=== PATIENT | female | born 1965 | race Caucasian/White ===

== ENCOUNTER 2016-12-13 17:30 | Emergency (ER) | payer OTHER ==
[~2016-12-13] VITALS: Ht 167.6 cm; Wt 77.3 kg
[~2016-12-13 17:30] MED LIST: CYCL10TA9 PO; GABA-502 PO; HYDR25TA4 PO; LISI40TA PO; OMEP40CA36 PO; OXYC10TA8 PO
[2016-12-13 17:40] VITALS: BP 146/90; PULSE 80; RESP 16; O2SAT 98
[2016-12-13 18:15] LABS: BASOPHILS % (AUTO) 0.5 % (0-3); EOSINOPHILS % (AUTO) 1.7 % (0-5); MONOCYTES % (AUTO) 9.5 % (4-12); Mean Corpuscular Hemoglobin 36.3 pg (27.0-35.0); Mean Corpuscular Volume 108.3 fL (81-100); NEUTROPHILS % (AUTO) 57.5 % (40-74); Platelet Count 551 bil/L (150-400)
--- NOTE | 2016-12-13 18:36 | DRSVH ---
PROCEDURE: X-RAY CHEST ONE VIEW, PORTABLE ([id number]) INDICATIONS: SHORT OF BREATH TECHNIQUE: One view of the chest was acquired. COMPARISON: [facility], CR, XR CHEST 1VW (PORTABLE), 03/18/2015, 19:54. FINDINGS: Surgical changes and devices: None. Lungs and pleura: No pleural effusions or pneumothorax. Lungs are clear. Mediastinum: Mediastinal contours appear normal. Heart size is normal. Bones and chest wall: No suspicious bony lesions. Overlying soft tissues appear unremarkable. IMPRESSION: Normal chest radiograph. Dictated by: Bubba Muñoz M.D. on 12/13/2016 at 18:28 Approved by: Bubba Muñoz M.D. on 12/13/2016 at 18:29
[2016-12-13 18:38] VITALS: BP 117/59; PULSE 82; RESP 13; O2SAT 96
[2016-12-13 18:58] LABS: TROPONIN T < 0.010 ug/L (0.0-0.011)
[2016-12-13 19:05] LABS: Magnesium 1.8 mg/dL (1.6-2.6)
--- NOTE | 2016-12-13 19:23 | ED.REPORT ---
HPI-Dyspnea / Wheezing Date of Service December 13, 2016 ED Provider: Modesto Brown DO Patient is a 51 year old female with recent history of recent hospitalization for hepatic thrombus and PE who presents to [facility] ED c/o difficulty breathing and increased RUQ abdominal pain with radiation to her right upper back. Patient is currently on Lovenox and Warfarin, 15 mg with subtherapeutic INR of 1.9 as of yesterday. Patient states she has been doing well with exception of RUQ pain which she has all the time since last week, but starting last night she noticed some shortness of breath that she never had before and radiation of her abdominal pain toward right upper thorax. These symptoms were accompanied by nausea and vomiting. Patient was supposed to go for a follow up appointment at [facility] to check her INR level, but she was told to go directly to ED for evaluation due to worsening symptoms. Nursing Notes Stated Complaint: TROUBLE BREATHING, BLOOD CLOT IN LUNG & LIVER Chief Complaint: Chest Pain Nursing Notes Reviewed: Yes Allergies: Coded Allergies: No Known Allergies (Unverified Allergy, Unknown, 05/14/14) Scheduled Cyclobenzaprine (Cyclobenzaprine) 10 Mg Tablet 10 MG PO HS Gabapentin (Gabapentin) 300 Mg Capsule 900 NG PO TID Hydrochlorothiazide (Hydrochlorothiazide) 25 Mg Tablet 25 MG PO DAILY Lisinopril (Lisinopril) 40 Mg Tablet 40 MG PO DAILY Oxycodone ER (Oxycontin) 10 Mg Tab.er.12h 10 MG PO BID oxyCODONE (oxyCODONE) 10 Mg Tablet 10 MG PO Q4 HR Scheduled PRN Omeprazole (Omeprazole) 40 Mg Capsule.dr 40 MG PO DAILY PRN PRN REFLUX General Time Seen by MD: 18:22 Chief Complaint Shortness of breath Hx Obtained From: Patient Arrived By: Walk-in Sudden in Onset?: Yes Onset Occurred: 1 day ago Context of Onset: Other (recent PE and hepatic thrombus) Location: : Back (right): Chest right Quality: Fullness Radiation: : Back: Chest right Severity: Current: Moderate Severity: Maximum: Moderate Recent Healthcare: Recent hospitalization (1 week ago) Risk Factors CAD Risk Stratification Hypertension Smoking Risk factors reviewed PE Risk Stratification Coagulation Disorder Previous PE Risk factors reviewed PERC Rule Age 50 or over, Prior Hx of DVT/PE One or more crit "Yes" Well's Criteria for PE Most likely due to PE (3), Prior DVT or PE (1.5) [facility] PE Score: 3-6 pts (mod risk 20.5%) Past Medical History Past Medical History PE Hepatic thrombus Splenic mass-see surgery history Hernitated disc Past Surgical History 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" Reports: , Hysterectomy Family History Mother at age 21 due to MN caused by Domitila Fever Smoking History Current Every Day Smoker, Light Tobacco Smoker Social History Alcohol Use: "Social" Drug Use: Denies drug use Other Social History: Local resident Ambulatory Status Independent Review of Systems Constitutional: Denies: Chills, Fatigue, Fever, Lethargy, Malaise, Recent wt loss, Weakness - generalized Ears / Nose / Throat: Reports: Nose bleeding Respiratory: Reports: Shortness of breath, Denies: Wheezing Cardiovascular: Denies: Chest pain, Dyspnea on exertion, Edema, Palpitations, Syncope Musculoskeletal: Reports: Thoracic pain (right), Denies: Joint pain, Joint swelling Skin: Reports Bruising, Denies Diaphoresis Physical Exam Initial Vital Signs Vital Signs (First) Date Time Temp Pulse Resp B/P Pulse Ox O2 Delivery O2 Flow Rate FiO2 12/13/16 17:40 37.4 80 16 146/90 98 Room Air Initial VS: Reviewed, Vital signs abnormal (T 37.4) General/Constitutional: Awake, Alert, No acute distress, Well appearing, Well developed, Well hydrated, Well nourished, Cooperative Neck: Atraumatic, Supple, No adenopathy, No swelling, Non-tender, No JVD, No carotid bruit Respiratory / Chest: Breath sounds NL, Breath sounds = bilat, No respiratory distress, No rales, No rhonchi, No wheezing Cardiovascular: Heart rate NL, Regular rhythm, No murmurs, Pulses = bilaterally ENT: Atraumatic, Mucous membranes moist Abdomen: Atraumatic, BS normoactive Tenderness/Guarding/Rebound: Positive: Tender RUQ... (Moderate), Tender epigastric Trauma - General: Positive: Ecchymosis (central abdomen (at the site of Lovenox injections)) Back: Atraumatic Flank / Spine / Paraspinal: Positive: Flank tender R Lower Extremity / Pelvis / MS: Atraumatic, No swelling, Non-tender, No erythema Skin: No rash, Warm, Dry Neurologic: Oriented X3, Speech NL Psychiatric: Affect NL, Mood NL Interpretation & Diagnostics Lab Results Interpretation Result Diagram: 12/13/16 1800 12/13/16 1800 Test 12/13/16 18:00 White Blood Count 11.9th/mm3 (3.8-10.1) Red Blood Count 3.61mil/mm3 (3.90-5.20) Hemoglobin 13.1g/dL (12.0-15.6) Hematocrit 39.1% (35.0-46.0) Mean Corpuscular Volume 108.3fL (81-100) Mean Corpuscular Hemoglobin 36.3pg (27.0-35.0) Mean Corpuscular Hemoglobin Concent 33.5% (32.0-37.0) Red Cell Distribution Width 13.7% (12.3-15.4) Platelet Count 551bil/L (150-400) Neutrophils (%) (Auto) 57.5% (40-74) Lymphocytes (%) (Auto) 30.5% (14-46) Monocytes (%) (Auto) 9.5% (4-12) Eosinophils (%) (Auto) 1.7% (0-5) Basophils (%) (Auto) 0.5% (0-3) Prothrombin Time 22.2sec (8.1-12.5) Prothromb Time International Ratio 2.04ratio Sodium Level 136mEq/L (134-144) Potassium Level 3.6mEq/L (3.5-5.2) Chloride Level 98mEq/L (97-108) Carbon Dioxide Level 22mmol/L (18-29) Blood Urea Nitrogen 16mg/dL (6-24) Creatinine 0.75mg/dL (0.57-1.00) Estimat Glomerular Filtration Rate 117mL/min (>59) Glucose Level 121mg/dL (60-99) Calcium Level 10.1mg/dL (8.5-10.1) Magnesium Level 1.8mg/dL (1.6-2.6) Total Bilirubin 0.2mg/dL (0.0-1.2) Aspartate Amino Transf (AST/SGOT) 28U/L (0-50) Alanine Aminotransferase (ALT/SGPT) 28U/L (0-32) Alkaline Phosphatase 96U/L (25-150) Troponin T < 0.010ug/L (0.0-0.011) Total Protein 7.8g/dL (6.4-8.4) Albumin 4.4g/dL (3.4-5.0) Hold Tim Top Tube Received (Received) ECG Interpretation Time: 17:58 Interpreted by: ED physician Normal ECG Interpretation: Normal rate (78), Normal sinus rhythm ( ) Rhythm / Conduction: Ectopic beats - PVC's, QTc prolongation (510) CBC Interpretation WBC elevated (11.9), Platelets elevated (551) BMP / CMP Interpretation BMP/CMP normal Serum Coags Interpretation INR normal (2 (Goal 2-3, patient is on Warfarin)) X-Ray Chest Interpretation Chest Xray Interpretation: Normal chest radiograph Interpretation / Wet Read by: Interpret - Radiologist CT Chest Interpretation CT angio chest PE: filling defect in the posterior medial segment of right lower lobe Interpretation / Wet Read by: Interpret - ED physician Comparison with Prior Study: No change (Requested CT angio chest report from [facility]. It said nonocclusive segmental right lower lobe pulmonary emboli ) Re-Eval/Medical Decision Med Decision/Clinical Course In summary, this is a 51 year old female with recent history of hepatic thrombus and PE, on Warfarin, 15 mg daily, with current INR of 2, presents to ER c/o shortness of breath and increasing RUQ pain with radiation to the back. Recent work up at [facility] revealed positive antiphospholipid antibody, that was discussed with the patient. Repeat CT angio chest in ED revealed filling defect in the right posterior medial segment of the right lobe, which is consistent with the finding on CT done on 12/10/2016 at [facility]. We discussed the patient with Dr. Farooq Madden, [facility] public transportation inspector physician, who agreed with the plan to discharge patient home on warfarin, current dose, at 15 mg daily with close follow up with [facility] clinic for INR check within 48 hours. Patient received an additional dose of Lovenox, 80 mg subcutaneously before discharge. Diagnoses, lab/test results and discharge follow up plan discussed with patient in details. She verbalized understanding and agreed to the plan. Laboratory work up significant for mild leukocytosis. Chest x-ray, ECG negative, CT angio chest PE ordered and pending. Source of Hx: Old records Severity: Serious condition Comorbidities: Anticoagulation therapy Counseled Regarding: Diagnosis, Lab results, Need for follow-up, When/why to return to ED Discharge & Departure Shift Change Sign-Out Response to Therapy: Improved Impression: Primary Impression: Pulmonary emboli Pulmonary embolism type: other Chronicity: unspecified Acute cor pulmonale presence: without acute cor pulmonale Qualified Code: I26.99 - Other pulmonary embolism without acute cor pulmonale Additional Impression: Hepatic vein thrombosis Disposition: Home Discharge Condition All VS Reviewed: Yes Condition: Stable Additional Instructions: Thank you for seeking care at emergency room today. You have pulmonary embolism, which is the sudden blockage of a major blood vessel in the lung, usually by a blood clot. In most cases, the clots a re small and are not deadly, but they can damage the lung. But if the clot is large and stops flow to the lung, it can be deadly. Please continue taking Warfarin, 15 mg daily and follow up with [facility] and your PCP within 48 hours. Your INR needs to be rechecked within 48 hours! This is very important. You will be sent home with a prescription for pain medication. Take it as prescribed. STOP smoking! Please return to emergency room if you develop new symptoms or your symptoms worsen: Sudden shortness of breath. Sharp chest pain that is worse when you cough or take a deep breath. A cough that brings up pink, foamy mucus. Other, more general symptoms. For example, you may feel anxious or on edge, sweat a lot, feel lightheaded or faint, or have a fast heart rate or palpitations. If you have symptoms like these, you need to see a doctor right away, especially if they are sudden and severe. Thank you for letting us partake in your care today. Referrals: Josemanuel Charles MD (PCP) EDSupervising Provider for APC: Modesto Brown DO Attending Statement I took a history performed an exam. No new pulmonary emboli identified. INR is therapeutic. She will get another dose of Lovenox and continue the current dose of warfarin. Her primary care was consulted and they will see her in the office this week. Pain was adequately treated. I suspect the pain is related to the pulmonary emboli. copies to: Josemanuel Charles MD, Oksana S DO December 13, 2016 19:23 Modesto Brown DO December 14, 2016 18:22
[2016-12-13 19:24] LABS: INR 2.04 ratio
[2016-12-13] MEDS ORDERED: HYDROmorphone 1 mg/mL Inj IVPUSH ONE ×2 (19:25→20:10)
[2016-12-13] MEDS ORDERED: HYDROmorphone 1 mg/mL Inj IM ONE (20:00)
--- NOTE | 2016-12-13 20:12 | DRSVH ---
PROCEDURE: CT ANGIO CHEST PULMONARY EMBOLISM ([id number]) INDICATIONS: recent PE, on Lovenox, now more pain, ?failure TECHNIQUE: After the administration of intravenous contrast, 2 mm thick sections acquired from the pulmonary api judie to the posterior costophrenic angles. 3-dimensional maximum intensity projection (MIP) coronal a nd sagittal reformats were then acquired through the thorax. For radiation dose reduction, the follo wing was used: automated exposure control, adjustment of mA and/or kV according to patient size. COMPARISON: [facility], CT, CT ABD PELVIS W CON, 03/18/2015, 20:54. FINDINGS: Image quality: Excellent. Pulmonary arteries: The central, left and right, and first rib or pulmonary artery branches are paten t. There is a possible peripheral filling defect in a subsegmental right lower lobe pulmonary artery (se 4 im 84). Lungs and pleura: There is a 9 x12 mm nodule in the inferior posterior right lower lobe (se 5 im 50) which was not present on the December 2014 examination and measured 8 mm on the March 18, 2015 abdomen a nd pelvis CT. There is an ill-defined pulmonary opacity adjacent to the pleura in the anterolateral r ight upper lobe (se 5 im 15). Otherwise, lungs are clear. Mediastinum: Heart size is normal, without pericardial effusion. No mediastinal or hilar adenopathy . Thoracic aorta is normal in caliber and enhancement. Esophagus is normal in caliber, without hiat al hernia. Bones and chest wall: No suspicious bony lesions. Ribs and thoracic spine appear intact throughout. Thyroid gland is present. No axillary or supraclavicular adenopathy. Abdomen: Visualized upper abdominal solid organs appear normal in the early arterial phase of enhanc ement. IMPRESSION: 1. Tiny possible filling defect in a subsegmental right lower lobe pulmonary artery. Possible etiolog ies include artifact or a subacute/chronic tiny pulmonary embolus. Please correlate with any CTs demo nstrating the location of the patient's reported previous emboli. Given the tiny size of this potenti al finding it is highly unlikely to be the source of the patient's symptoms. 2. Nodule in the inferior right lower lobe abutting the pleura is most consistent with rounded atelec tasis. It has increased in size since the February [address] from 8mm at that time to 12 mm today[address] PET CT for further evaluation. 3. Peripheral right upper lobe pulmonary opacity may represent early infection. Dictated by: Bubba Muñoz M.D. on 12/13/2016 at 19:51 Approved by: Bubba Muñoz M.D. on 12/13/2016 at 20:05
[2016-12-13 21:26] VITALS: BP 122/61; PULSE 74; RESP 16; O2SAT 94
[2016-12-13] MEDS ORDERED: OXYC10TA69 PO (21:41)
== END 2016-12-13 22:33 | disposition home or self-care (01) ==
LOC: SED 17:30
DX: I26.99 Other pulmonary embolism without acute cor pulmonale (principal); I82.0 Budd-Chiari syndrome; R10.11 Right upper quadrant pain; F17.200 Nicotine dependence, unspecified, uncomplicated; Z79.01 Long term (current) use of anticoagulants
CPT/HCPCS: 36415; 71010; 71275; 80053; 83735; 84484; 85025; 85610; 93005; 96372; 96374; 96376; 99285; J1170; J1650; Q9967

== ENCOUNTER 2017-03-06 15:32 | Inpatient (IN) | payer OTHER ==
[~2017-03-06] VITALS: Ht 167.6 cm; Wt 88.0 kg
[2017-03-06] VITALS (13 sets, daily range): BP systolic 116–201; BP diastolic 78–115; PULSE 74–87; RESP 17–28; O2SAT 87–100
--- NOTE | 2017-03-06 15:26 | ED.REPORT ---
HPI-Cardiac Arrest Date of Service Mar 06, 2017 ED Provider: Dr. Lewis Pt is a 51 y/o female anticoagulated on Warfarin w/ a hx of PE, HTN, symptomatic splenic mass s/p splenectomy, hepatic thrombus, presenting to the ED via EMS due to cardiac arrest which occurred about 40 minutes prior to arrival. The patient was totally well yesterday and today. She went to the bathroom, had a BM, stood up from the toilet and collapsed into the bathtub at which time he heard a thump and immediately went into the bathroom to find her lying facedown in the tub "appearing ". He is a classified ad clerk and immediately began CPR and called EMS. First responders arrived, transferred the patient to the kitchen, and continued CPR and applied an AED which advised to shock after 2 minutes. They then resumed CPR for 4 minutes. EMS then arrived to find the patient with a strong pulse and CPR was ceased. Her respirations were agonal, O2 saturation was 60%, and her BP was 180/100. Rapid sequence intubation was performed at 15:00 with succinylcholine and etomidate. Of note her airway was difficult to intubate due to vomit and adipose tissue. On route to the ED she had some purposeful movement of her chest and was given versed and rocuronium for sedation. She arrives to the ED critically ill. Additional history from the after he arrived: The patient has been hesitant to discuss with her her opiate drug use. She has been taking opiate pain medications for a long time due to a prior back surgery. He was told by one of her friends that she has been going to a Suboxone Clinic in [place] and just started on a patch. She has apparently never used IV drugs. She drinks alcohol and smokes everyday. There is no history of DM, cancer, or stroke. Further history unable to be obtained secondary to patient condition. Nursing Notes Stated Complaint: CARDIAC ARREST Nursing Notes Reviewed: Yes Allergies: Coded Allergies: No Known Allergies (Verified Allergy, Unknown, 03/06/17) Scheduled Aspirin (Aspirin) 81 Mg Tablet 162 MG PO DAILY Buprenorphine (Buprenorphine) 5 Mcg/Hour Patch.tdwk 1 PATCH TOPICAL WEEKLY Lisinopril (Lisinopril) 20 Mg Tablet 20 MG PO DAILY Simvastatin (Simvastatin) 20 Mg Tablet 20 MG PO DAILY Warfarin Sodium (Warfarin Sodium) 6 Mg Tablet 6 MG PO every other day Warfarin Sodium (Warfarin Sodium) 7.5 Mg Tablet 7.5 MG PO every other day Scheduled PRN Cephalexin (Cephalexin) 500 Mg Capsule 500 MG PO tid x 7 days PRN PRN illness Tramadol (Tramadol) 50 Mg Tablet 50-100 MG PO q8 hours PRN PRN For Pain oxyCODONE (oxyCODONE) 5 Mg Capsule 5-10 MG PO BID PRN PRN For Pain Miscellaneous Medications ([unknown "chemo drug"]) Unknown Dose General Time Seen by Provider: 15:30 Chief Complaint Cardiac arrest, found dwn Hx Obtained From: EMS Unable to Obtain Hx: Patient condition Arrived By: Ambulance Onset Occurred: 31 - 45 minutes ago Symptom Duration: Since onset Progression Since Onset: Constant Past Medical History Past Medical History PE - on Warfarin Hepatic thrombus Hypertension 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 - just started on Suboxone Past Surgical History 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" Back Reports: , Hysterectomy Family History Mother at age 21 due to [place] caused by Domitila Fever Smoking History Current Every Day Smoker Social History Just started Suboxone Alcohol Use: 1-3 per day Drug Use: Denies drug use Other Social History: Local resident Ambulatory Status Independent Review of Systems Unable to Obtain ROS Patient condition, Intubated Physical Exam Initial Vital Signs Vital Signs (First) Date Time Temp Pulse Resp B/P Pulse Ox O2 Delivery O2 Flow Rate FiO2 03/06/17 15:45 82 17 201/115 89 Mechanical Ventilator 03/06/17 16:01 33.8 Initial VS: Reviewed, Vital signs abnormal GENERAL: Comatose Critically ill-appearing Obese Respiratory / Chest: No stridor Intubated Breath sounds initially diminished on left, equal after tube moved into proper position Cardiovascular: Heart rate NL, Regular rhythm, Heart sounds NL, No murmurs, Peripheral circulation NL, Pulses = bilaterally Abdomen: Atraumatic, Soft Head / Eyes: Atraumatic, Normocephalic, PERRL (3mm bilat) ENT: Atraumatic, Airway patent, Mucous membranes moist Neck: Atraumatic, Supple Upper Extremity / MS: Atraumatic, Inspection NL Lower Extremity / Pelvis / MS: Atraumatic, Inspection NL Skin: Atraumatic, No rash NEURO: Comatose, GCS of 3 PSYCH: Unable to assess Interpretation & Diagnostics Lab Results Interpretation Result Diagram: 03/06/17 1556 03/06/17 1556 Test 03/06/17 15:56 03/06/17 16:13 White Blood Count 27.1th/mm3 (3.8-10.1) Red Blood Count 4.35mil/mm3 (3.90-5.20) Hemoglobin 16.0g/dL (12.0-15.6) Hematocrit 44.4% (35.0-46.0) Mean Corpuscular Volume 102.1fL (81-100) Mean Corpuscular Hemoglobin 36.8pg (27.0-35.0) Mean Corpuscular Hemoglobin Concent 36.0% (32.0-37.0) Red Cell Distribution Width 14.3% (12.3-15.4) Platelet Count 444bil/L (150-400) Neutrophils (%) (Auto) 72.3% (40-74) Lymphocytes (%) (Auto) 20.5% (14-46) Monocytes (%) (Auto) 4.9% (4-12) Eosinophils (%) (Auto) 0.5% (0-5) Basophils (%) (Auto) 0.3% (0-3) Prothrombin Time 25.1sec (8.1-12.5) Prothromb Time International Ratio 2.31ratio Sodium Level 138mEq/L (134-144) Potassium Level 4.1mEq/L (3.5-5.2) Chloride Level 101mEq/L (97-108) Carbon Dioxide Level 15mmol/L (18-29) Blood Urea Nitrogen 13mg/dL (6-24) Creatinine 0.67mg/dL (0.57-1.00) Estimat Glomerular Filtration Rate 133mL/min (>59) Glucose Level 200mg/dL (60-99) Calcium Level 9.0mg/dL (8.5-10.1) Magnesium Level 1.8mg/dL (1.6-2.6) Total Bilirubin 0.4mg/dL (0.0-1.2) Aspartate Amino Transf (AST/SGOT) 524U/L (0-50) Alanine Aminotransferase (ALT/SGPT) 285U/L (0-32) Alkaline Phosphatase 126U/L (25-150) Total Creatine Kinase 229U/L (21-215) Creatine Kinase MB 5.0ng/mL (0.0-5.3) Creatine Kinase MB % % (0.0-5.0) Troponin T 0.068ug/L (0.0-0.011) Total Protein 7.7g/dL (6.4-8.4) Albumin 4.9g/dL (3.4-5.0) Hold Urine Received (Received) ECG Interpretation ECG Interpretation: Sinus rhythm rate [address] depression Prolonged QT interval - QTc 596 Time: 15:45 Interpreted by: ED physician X-Ray Chest Interpretation Chest Xray Interpretation: IMPRESSION: Tip of endotracheal tube is 1 cm above the benja, and should be pulled back 3-4 cm. Dictated by: Giovany Modi M.D. on 03/06/2017 at 15:49 Approved by: Giovany Modi M.D. on 03/06/2017 at 15:50 View: Portable, 1 view Interpretation / Wet Read by: Interpret - Radiologist CT Chest Interpretation IMPRESSION: 1. No acute pulmonary embolus. 2. Dependent air space opacities throughout the lungs suspicious for aspiration in the setting of recent cardiac arrest. 3. Bilateral, displaced anterior rib fractures presumably secondary to recent CPR. Dictated by: Sheela Garcia M.D. on 03/06/2017 at 16:31 Approved by: Sheela Garcia M.D. on 03/06/2017 at 16:37 Study type: CT pulm angiogram Interpretation / Wet Read by: Interpret - Radiologist CT Abd / Pelvis Interpretation IMPRESSION: 1. Pulmonary opacities, partially visualized, possibly related to air space disease such as pneumonia or aspiration. 2. Air in the bladder, possibly related to antoine insertion. Other etiologies including infection cannot be excluded. 3. Bilateral rib fractures. Dictated by: Leticia Maza M.D. on 03/06/2017 at 15:59 Approved by: Leticia Maza M.D. on 03/06/2017 at 16:12 Study type: Abdominal CT IV contrast Interpretation / Wet Read by: Interpret - Radiologist CT C-Spine Interpretation IMPRESSION: 1. No visualized fracture. 2. Pulmonary opacities bilaterally. Please see CT Chest 03/06/17 report for further details. Dictated by: Leticia Maza M.D. on 03/06/2017 at 15:39 Approved by: Leticia Maza M.D. on 03/06/2017 at 15:55 Study type: CT no contrast Interpretation / Wet Read by: Interpret - Radiologist Procedures Lab Results Interpretation Result Diagram: 03/06/17 1556 03/06/17 1556 Test 03/06/17 15:56 03/06/17 16:13 White Blood Count 27.1th/mm3 (3.8-10.1) Red Blood Count 4.35mil/mm3 (3.90-5.20) Hemoglobin 16.0g/dL (12.0-15.6) Hematocrit 44.4% (35.0-46.0) Mean Corpuscular Volume 102.1fL (81-100) Mean Corpuscular Hemoglobin 36.8pg (27.0-35.0) Mean Corpuscular Hemoglobin Concent 36.0% (32.0-37.0) Red Cell Distribution Width 14.3% (12.3-15.4) Platelet Count 444bil/L (150-400) Neutrophils (%) (Auto) 72.3% (40-74) Lymphocytes (%) (Auto) 20.5% (14-46) Monocytes (%) (Auto) 4.9% (4-12) Eosinophils (%) (Auto) 0.5% (0-5) Basophils (%) (Auto) 0.3% (0-3) Prothrombin Time 25.1sec (8.1-12.5) Prothromb Time International Ratio 2.31ratio Sodium Level 138mEq/L (134-144) Potassium Level 4.1mEq/L (3.5-5.2) Chloride Level 101mEq/L (97-108) Carbon Dioxide Level 15mmol/L (18-29) Blood Urea Nitrogen 13mg/dL (6-24) Creatinine 0.67mg/dL (0.57-1.00) Estimat Glomerular Filtration Rate 133mL/min (>59) Glucose Level 200mg/dL (60-99) Calcium Level 9.0mg/dL (8.5-10.1) Magnesium Level 1.8mg/dL (1.6-2.6) Total Bilirubin 0.4mg/dL (0.0-1.2) Aspartate Amino Transf (AST/SGOT) 524U/L (0-50) Alanine Aminotransferase (ALT/SGPT) 285U/L (0-32) Alkaline Phosphatase 126U/L (25-150) Total Creatine Kinase 229U/L (21-215) Creatine Kinase MB 5.0ng/mL (0.0-5.3) Creatine Kinase MB % % (0.0-5.0) Troponin T 0.068ug/L (0.0-0.011) Total Protein 7.7g/dL (6.4-8.4) Albumin 4.9g/dL (3.4-5.0) Hold Urine Received (Received) X-Ray Chest Interpretation Chest Xray Interpretation: IMPRESSION: Tip of endotracheal tube is 1 cm above the benja, and should be pulled back 3-4 cm. Dictated by: Giovany Modi M.D. on 03/06/2017 at 15:49 Approved by: Giovany Modi M.D. on 03/06/2017 at 15:50 View: Portable, 1 view Interpretation / Wet Read by: Interpret - Radiologist CT Head Interpretation IMPRESSION: No acute intracranial abnormality is not identified on this CT without contrast. Dictated by: Ric Bobby M.D. on 03/06/2017 at 16:27 Approved by: Ric Bobby M.D. on 03/06/2017 at 16:29 Study: Head CT no contrast Interpretation / Wet Read by: Interpret - Radiologist Re-Eval/Medical Decision Source of Hx: Old records, EMS Re-Evaluation/Progress #1: Time of Eval: 15:54 Re-Evaluation/Progress Note: Pt rechecked. Propofol started. Re-Evaluation/Progress #2: Time of Eval: 15:56 Re-Evaluation/Progress Note: Pt rechecked. Off to CT scan. Re-Evaluation/Progress #3: Time of Eval: 15:59 Re-Evaluation/Progress Note: arrived. Discussed case. Informed of need for admission to ICU. He agrees with plan for admit and full treatment. Re-Evaluation/Progress #4: Time of Eval: 16:26 Re-Evaluation/Progress Note: Pt rechecked. Back from CT. Re-Evaluation/Progress #5: Time of Eval: 16:40 Re-Evaluation/Progress Note: Pt rechecked. Hospitalist has arrived and will place central and arterial line. Consultation #1: Referral / Consult Name: Eagle Perez MD Consulted With: Hospitalist Call Returned at: 16:32 Area Field Manager: Will see patient, Agrees with eval, Agrees with plan, Accepts admit Consultation #2: Referral / Consult Name: Anastasiia Xiong MD Consulted With: Cardiology Call Returned at: 17:24 Area Field Manager: Will see patient, Agrees with eval, Agrees with plan Note: Will consult during admit. Counseled Regarding: Diagnosis, Lab results, Need for admission Discharge & Departure Impression: Primary Impression: Cardiac arrest Additional Impressions: Respiratory failure Chronicity: acute Respiratory failure complication: unspecified whether with hypoxia or hypercapnia Qualified Code: J96.00 - Acute respiratory failure , unspecified whether with hypoxia or hypercapnia Aspiration pneumonia Aspiration pneumonia type: unspecified Laterality: bilateral Lung location : unspecified part of lung Qualified Code: J69.0 - Pneumonitis due to inhalation of food and vomit Elevated troponin Transaminitis Leukocytosis Leukocytosis type: unspecified Qualified Code: D72.829 - Elevated white blood cell count, unspecified Rib fractures Encounter type: initial encounter Rib fracture type: multiple ribs Fracture type: closed Laterality: bilateral Qualified Code: S22.43XA - Multiple fractures of ribs, bilateral, initial encounter for closed fracture QT prolongation Disposition: ADMITTED TO HOSPITAL All VS Reviewed: Yes Condition: Critical Referrals: Josemanuel Charles MD (PCP) Crit Care Except Billable Proc Time Spent: 30-74 minutes Services Performed: Patient management by me, Time spent at bedside, Reviewing test results, Reviewing imaging, Discussing patient care, Documentation in record, Time with fam/surrogate Critical Care Notes: 60 minutes Scribe Attestation Portions of this note were transcribed by Santino Hernandez. I, Dr. Lewis, personally performed the history, physical exam and medical decision-making; I reviewed and confirmed the accuracy of the information in the transcribed note. copies to: Josemanuel Charles MD, Kirk H MD Mar 06, 2017 15:26 SANTINO HERNANDEZ Mar 06, 2017 15:35
[~2017-03-06 15:32] MED LIST changes: +0.9% Sodium Chloride 1,000 ML IV ONE; +AMOX-366 PO; -CYCL10TA9 PO; +ESOM40CA41 PO; -GABA-502 PO; -HYDR25TA4 PO; +LISI-608 PO; -LISI40TA PO; +LOV120 SUBQ; -OMEP40CA36 PO; +ONDA4TAB6 PO; -OXYC10TA8 PO; +OXYC15TA79 PO; +OXYC1TAB24 PO; +OXYC5TAB72 PO; +SUCR1TAB30 PO
--- NOTE | 2017-03-06 15:52 | DRSVH ---
PROCEDURE: X-RAY CHEST ONE VIEW, PORTABLE ([id number]) INDICATIONS: 51 year-old female with cardiac arrest. TECHNIQUE: One view of the chest was acquired. COMPARISON: [facility], CR, XR CHEST 1VW (PORTABLE), 12/13/2016, 17:50. [facility], CR, XR CHEST 1VW (PORTABLE), 03/18/2015, 19:54. FINDINGS: Surgical changes and devices: Endotracheal tube is present, with tip 1 cm above the benja. Additiona l abdominal catheter is noted, presumably within the abdominal aorta. Lungs and pleura: No pleural effusions or pneumothorax. Lungs are clear. Mediastinum: Mediastinal contours appear normal. Heart size is normal. Bones and chest wall: No suspicious bony lesions. Overlying soft tissues appear unremarkable. IMPRESSION: Tip of endotracheal tube is 1 cm above the benja, and should be pulled back 3-4 cm. Dictated by: Giovany Modi M.D. on 03/06/2017 at 15:49 Approved by: Giovany Modi M.D. on 03/06/2017 at 15:50
[2017-03-06 16:06] LABS: BASOPHILS % (AUTO) 0.3 % (0-3); EOSINOPHILS % (AUTO) 0.5 % (0-5); MONOCYTES % (AUTO) 4.9 % (4-12); Mean Corpuscular Hemoglobin 36.8 pg (27.0-35.0); Mean Corpuscular Volume 102.1 fL (81-100); NEUTROPHILS % (AUTO) 72.3 % (40-74); Platelet Count 444 bil/L (150-400)
[2017-03-06 16:27] LABS: INR 2.31 ratio
--- NOTE | 2017-03-06 16:30 | DRSVH ---
PROCEDURE: CT BRAIN WITHOUT CONTRAST ([id number]) INDICATIONS: syncope TECHNIQUE: Noncontrast 4.5 mm thick angled axial sections acquired from the foramen magnum to the vertex, with c oronal reformats. COMPARISON: None. FINDINGS: Image quality: Good CSF spaces: Basal cisterns are patent. No extra-axial fluid collections. Ventricles are normal in size and shape. Brain: No midline shift. No intracranial masses or hemorrhage. Argueta-white matter interface is norm al. Skull and face: Calvarium and visualized facial bones are intact, without suspicious lesions. A cami al tracheal tube passes through the visualized portion of head. Sinuses: Visualized sinuses and mastoids are clear. IMPRESSION: No acute intracranial abnormality is not identified on this CT without contrast. Dictated by: Ric Bobby M.D. on 03/06/2017 at 16:27 Approved by: Ric Bobby M.D. on 03/06/2017 at 16:29
--- NOTE | 2017-03-06 16:38 | DRSVH ---
PROCEDURE: CT ANGIO CHEST PULMONARY EMBOLISM ([id number]) INDICATIONS: syncope TECHNIQUE: After the administration of intravenous contrast, 2 mm thick sections acquired from the pulmonary api judie to the posterior costophrenic angles. 3-dimensional maximum intensity projection (MIP) coronal a nd sagittal reformats were then acquired through the thorax. For radiation dose reduction, the follo wing was used: automated exposure control, adjustment of mA and/or kV according to patient size. COMPARISON: [facility], CT, CT ANGIO CHEST PE, 12/13/2016, 19:39. FINDINGS: Image quality: Excellent. Pulmonary arteries: Pulmonary arteries are normal in size, and demonstrate no intraluminal filling d efects to suggest central pulmonary embolism. Lungs and pleura: Dependent air space opacities are present within the bilateral upper and lower lobe s suspicious for aspiration in the setting of recent cardiac arrest. No pleural effusion or pneumotho rax. Mediastinum: Heart size is normal, without pericardial effusion. No mediastinal or hilar adenopathy . Thoracic aorta is normal in caliber and enhancement. Esophagus is normal in caliber, without hiat al hernia. The patient is intubated. An NG tube is present, the tip of which is not visualized. Bones and chest wall: No suspicious bony lesions. Thoracic spine is intact. There are minimally disp laced anterior right fourth, fifth, sixth and seventh rib fractures, and a displaced anterior left si xth rib fracture. Thyroid gland is unremarkable. No axillary or supraclavicular adenopathy. Abdomen: Visualized upper abdominal solid organs appear normal in the early arterial phase of enhanc ement. IMPRESSION: 1. No acute pulmonary embolus. 2. Dependent air space opacities throughout the lungs suspicious for aspiration in the setting of rec ent cardiac arrest. 3. Bilateral, displaced anterior rib fractures presumably secondary to recent CPR. Dictated by: Sheela Garcia M.D. on 03/06/2017 at 16:31 Approved by: Sheela Garcia M.D. on 03/06/2017 at 16:37
[2017-03-06] MEDS ORDERED: fentaNYL-PF 50 mCg/mL 2 mL Inj ONE ×2 (16:46→16:59)
--- NOTE | 2017-03-06 16:56 | DRSVH ---
PROCEDURE: CT CERVICAL SPINE WITHOUT CONTRAST ([id number]) INDICATIONS: trauma TECHNIQUE: Noncontrast 3 mm thick sections acquired from the skull base to the T4 level. Sagittal and coronal r eformats were then constructed. For radiation dose reduction, the following was used: automated exp osure control, adjustment of mA and/or kV according to patient size. COMPARISON: [facility], CT, CT ANGIO CHEST PE, 03/06/2017, 16:04. FINDINGS: Image quality: Excellent. Bones: No fractures or dislocations. Visualized superior ribs are intact. There is straightening o f normal cervical curvature. There is trace anteriolithesis of C4 on C5, trace retrolithesis of C5 o n C6, C6 on C7. Multi-level degenerative changes are present. Soft tissues: Prevertebral soft tissues are normal in thickness. No paravertebral hematomas. No ap ical pneumothoraces. Endotracheal and nasogastric tubes are noted. Patchy bilateral upper pulmonary lobe opacities, left greater than right, seen in partial view. IMPRESSION: 1. No visualized fracture. 2. Pulmonary opacities bilaterally. Please see CT Chest 03/06/17 report for further details. Dictated by: Leticia Maza M.D. on 03/06/2017 at 15:39 Approved by: Leticia Maza M.D. on 03/06/2017 at 15:55
[2017-03-06 16:57] LABS: Magnesium 1.8 mg/dL (1.6-2.6)
[2017-03-06 16:58] LABS: Creatine Kinase 229 U/L (21-215)
[2017-03-06 17:00] LABS: TROPONIN T 0.068 ug/L (0.0-0.011)
--- NOTE | 2017-03-06 17:13 | DRSVH ---
PROCEDURE: CT ABDOMEN AND PELVIS WITH CONTRAST ([id number]) INDICATIONS: coma, history of PE and hepatic "Clots", on warfar TECHNIQUE: After the administration of intravenous contrast, 5 mm thick sections acquired from the diaphragm to the symphysis. 5 mm coronal and sagittal reformats were acquired. For radiation dose reduction, the following was used: automated exposure control, adjustment of mA and/or kV according to patient jennifer sims. COMPARISON: [facility], CT, CT ABD PELVIS W CON, 03/18/2015, 20:54. FINDINGS: Image quality: Excellent. ABDOMEN: Lung bases: Partially visualized pulmonary opacities. Heart size is normal. Solid organs: Liver and spleen are normal in size and enhancement. Gallbladder is unremarkable. Bi liary system is non dilated. Pancreas enhances normally. No adrenal nodules. Kidneys demonstrate n ormal size and enhancement, without hydronephrosis. Peritoneum and bowel: Bowel loops demonstrate normal wall thickness and caliber. No free fluid or a ir. Nasogastric tube is noted in the stomach. Nodes and vessels: No retroperitoneal or mesenteric adenopathy by size criteria. Aorta and inferior vena cava are normal in size. Miscellaneous: No ventral hernias. PELVIS: Genitourinary: Antoine catheter is present. Air is present in the bladder, possibly secondary to cath eter insertion. Miscellaneous: No inguinal hernias or adenopathy. Bones: No suspicious bony lesions. No vertebral body compression fractures. Right 5th through 7th and left 6th and possibly 5th rib fracture. Posterior fuson from L4-S1 is noted. IMPRESSION: 1. Pulmonary opacities, partially visualized, possibly related to air space disease such as pneumoni a or aspiration. 2. Air in the bladder, possibly related to antoine insertion. Other etiologies including infection ca nnot be excluded. 3. Bilateral rib fractures. Dictated by: Leticia Maza M.D. on 03/06/2017 at 15:59 Approved by: Leticia Maza M.D. on 03/06/2017 at 16:12
[2017-03-06] MEDS ORDERED: LISI-567 PO (17:28)
[2017-03-06] MEDS ORDERED: ASPI-973 PO (17:28)
[2017-03-06] MEDS ORDERED: [UNRECOGNIZED DRUG - REMARK] (17:28)
[2017-03-06] MEDS ORDERED: WARF6TAB6 PO (17:28)
[2017-03-06] MEDS ORDERED: OXYC5CAP4 PO (17:28)
[2017-03-06] MEDS ORDERED: SIMV20TA4 PO (17:28)
[2017-03-06] MEDS ORDERED: WARF7.5T4 PO (17:28)
[2017-03-06] MEDS ORDERED: BUPR1PAT TOPICAL (17:28)
[2017-03-06] MEDS ORDERED: TRAM50TA2 PO (17:28)
[2017-03-06] MEDS ORDERED: CEPH500C PO (17:28)
[2017-03-06] MEDS: 0.9% Sodium Chloride 1,000 ML IV SCH ×3 (17:43→20:27)
[2017-03-06] MEDS ORDERED: Polyethylene Glycol (PEG) 17 Gm Powder PO PRN (17:45)
[2017-03-06] MEDS ORDERED: Senna-Docusate 8.6-50 mg Tablet PO PRN (17:45)
[2017-03-06] MEDS ORDERED: Alum-Mag Hydrox-Simeth 30 mL Suspension PO PRN (17:45)
--- NOTE | 2017-03-06 17:54 | DRSVH ---
PROCEDURE: X-RAY CHEST ONE VIEW, PORTABLE ([id number]) INDICATIONS: POST CENTRAL LINE PLACEMENT TECHNIQUE: One view of the chest was acquired. COMPARISON: None. FINDINGS: Surgical changes and devices: There is an NG tube into the stomach. There is an endotracheal tube 4.7 cm above the benja. There is a right internal jugular central line with the tip just above the righ t atrium in the region of the superior vena cava. playground monitor leads are seen over the chest. Lungs and pleura: No pleural effusions or pneumothorax. Lungs are clear. Mediastinum: Mediastinal contours appear normal. Heart size is normal. Bones and chest wall: No suspicious bony lesions. Overlying soft tissues appear unremarkable. IMPRESSION: Central line in good position from a radiographic point of view. No radiographic complica tion is seen. Other tubes and lines are appropriate. Lungs are clear. Dictated by: Ric Bobby M.D. on 03/06/2017 at 17:51 Approved by: Ric Bobby M.D. on 03/06/2017 at 17:52
[2017-03-06] MEDS: fentaNYL 2,500 mCg/250 mL IV Premix IV SCH ×2 (17:55→19:57)
[2017-03-06] MEDS: Cisatracurium 200,000 mCg/100 mL NS IV SCH ×2 (18:00)
[2017-03-06] MEDS ORDERED: Cisatracurium 2,000 mCg/mL 10 mL Inj IV ONE (18:00)
[2017-03-06] MEDS: Midazolam 100 mg/100 mL Premix IV PRN (18:02)
[2017-03-06] MEDS ORDERED: 0.9% Sodium Chloride (Chilled) 1,000 ML IV PRN (18:08)
[2017-03-06] MEDS ORDERED: Lactated Ringer's 1,000 ML IV PRN (18:08)
[2017-03-06] MEDS ORDERED: DOBUTamine 500 mg/250 D5W 500,000 MCG in IV Premix 1 EACH IV PRN (18:08)
[2017-03-06] MEDS ORDERED: 0.9% Sodium Chloride (Chilled) 2,000 ML IV ONE (18:08)
[2017-03-06] MEDS ORDERED: 0.9% Sodium Chloride (Chilled) 500 ML IV PRN (18:08)
[2017-03-06] MEDS ORDERED: Piperacillin-Tazo 3.375 Gm Inj 3.375 GM in Dextrose 5% Minibag Plus 50 ML IV ONE (18:10)
[2017-03-06] MEDS ORDERED: Cisatracurium 2,000 mCg/mL 10 mL Inj IV PRN (18:10)
[2017-03-06] MEDS ORDERED: Calcium GLUCOnate 10% (Gm) 1 Gm/10 mL Inj IV PRN (18:10)
[2017-03-06] MEDS ORDERED: Acetaminophen IV 1,000 MG in IV Premix 1 EACH IV PRN (18:10)
[2017-03-06] MEDS ORDERED: Magnesium Sulf 2 Gm/50mL Water 2 GM in IV Premix 1 EACH IV ONE (18:30)
[2017-03-06 18:33] LABS: APPEARANCE,URINE CLEAR (CLEAR,HAZY); COLOR,URINE STRAW (YELLOW); OCCULT BLOOD,URINE LARGE (NEGATIVE); PH,URINE 6.5 (5.0-8.0); UROBILINOGEN,URINE NORMAL (NORMAL)
--- NOTE | 2017-03-06 18:57 | NUR ---
PT. TRANSPORTED FROM ED TO ROOM 2019 ON PORTABLE VENT AND PLACED ON SERVO WITHOUT INCIDENT. REPORT GIVEN TO RT.
[2017-03-06] MEDS: Midazolam Inj 100 MG in IV Premix 1 EACH IV SCH ×2 (19:07→19:56)
--- NOTE | 2017-03-06 19:25 | ABG ---
DateTimeAnalyzed 19:17:00 -_ pH ____7.319 - 7.350 7.450 pCO2 ___37.3__ -mmHg 35.0 45.0 pO2 210 -mmHg 69.0 116 HCO3- ___18.7__ -mmol/L 22.0 26.0 ABE ___-6.4__ -mmol/L -2.0 2.0 tHb ___14.5__ -g/dL 12.0 18.0 O2Hb ___97.3__ -% COHb ____0.6__ -% 0.0 1.5 MetHb ____1.2__ -% 0.4 1.5 sO2 ___99.1__ -% FIO2 __100.0__ -% PEEP ____6.0__ -cmH2O Set_RR ___22.0__ -b/min Vt __480.0__ -L Drawn By TLA - Date/Time Notified____ 19:24:00 -_ Spontaneous_RR ___22.0__ -b/min Oxygen Device 1 VENTILATOR - Notified Whom RADHA-RN - B 755 -mmHg tO2 ___20.2__ -Vol% Eagle test N/A -
--- NOTE | 2017-03-06 19:35 | NUR ---
Admit: Patient arrived to CCU room 2019 @ 1820 from ED via gurney and was transferred to CCU bed with slider board. Patient intubated with vent settings: 100%/6PEEP/22RR/500TV. Fentanyl 50 mcg/hr, Versed 2mg/hr and Propofol 50mcg/kg/min gtt infusing. VSS. Tele: Sinus 70's. Art line was started by Dr Cheek in CCU. Cooling protocol was initiated by this RN along with Susy STEPHENS RN. Report given to Susy Johnson RN.
[2017-03-06] MEDS: Piperacillin-Tazo 3.375 Gm Inj 3.375 GM in Dextrose 5% Minibag Plus 50 ML IV ONE ×2 (19:50→20:09)
[2017-03-06 19:58] LABS: BASOPHILS % (AUTO) 0.1 % (0-3); EOSINOPHILS % (AUTO) 0.1 % (0-5); MONOCYTES % (AUTO) 4.4 % (4-12); Mean Corpuscular Hemoglobin 35.8 pg (27.0-35.0); NEUTROPHILS % (AUTO) 83.9 % (40-74); Platelet Count 347 bil/L (150-400)
[2017-03-06] MEDS: Magnesium Sulf 4 Gm/100 mL H2O 4 GM in IV Premix 1 EACH IV PRN (20:08)
--- NOTE | 2017-03-06 20:10 | PCM.HPMED ---
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 History is obtained from prior hospital and outpatient records, as well as her Fco. He states that today the patient coughed, and to the bathroom, had a bowel movement, and then collapsed in the bathroom. She heard the patient fall in the tub and went to offer assistance. There he found her down with a thready pulse, was able to turn her onto her back in the tub and began CPR. At that time he also called 911 and within 5 minutes the Propagation Worker was there to render assistance. They move the patient from the bathtub to the kitchen and continued with CPR and AED shocked the patient wants. Approximately 10 minutes later EMS arrived the patient was shocked again with return of spontaneous circulation. Patient was intubated in the field and report from ENT stated that there was a large amount of vomit in the oropharynx. The denies review of systems prior to this episode. He does state that the patient's been trying to get away from narcotics and started a Suboxone patch today. He does not know if she continued to use her opioids. 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 In January 2015 she had an encounter with [facility] surgical team due to a large splenic cyst that was removed. The patient was vaccinated appropriately. Patient also presented to [facility] in November of this year and underwent CT which which identified a filling defect in the right posterior medial segment of the right lobe, reportedly consistent with hepatic vein thrombosis, as well as a pulmonary embolism. Those records are not available at this time. She was placed on warfarin and Lovenox but presented to [facility] ED 3 days later with persistent right upper quadrant abdominal and chest pain. She was discharged at that time with an increase in her warfarin to 15 mg daily and was to follow- up with [facility] Initially the patient was bucking the vent and large amount of fentanyl and propofol were ineffective and stopping the patient from fighting the vent and attempting to remove the ET tube. Versed 6 mg push was used to sedate the patient In the emergency department EKG around 1700 showed prolonged QT interval but otherwise was normal sinus rhythm. Troponin was positive at 0.068, LFTs were elevated at nearly 2-1 fashion, and CK was elevated to 29. Patient also had a acidosis of 22 which is expected after rest. Patient also had leukocytosis without left shift. Otherwise labs were unremarkable.CT of the brain and cervical region was taken and negative for bleed. CTA of the chest was taken and negative for pulmonary embolism. CT of the abdomen and pelvis was unremarkable. Review of Systems: Review of systems were obtained from to the best of his knowledge and are presented in the history of present illness Allergies Coded Allergies: No Known Allergies (Verified Allergy, Unknown, 03/06/17) Home Medications Taken from PCP med list in [facility] Lisinopril/hydrochlorothiazide 20/25mg Nexium 40 mg capsules Oxycodone 5 mg tablets every 6 hours when necessary pain Percocet 5-325 mg tablet every 4 hours as needed Reported Suboxone Zofran PMH Hypertensive retinopathy Hypertension Hepatic vein thrombosis Pulmonary embolism Splenic cyst Surgical History Hysterectomy Splenectomy Family History Mother of [place] and medic fever at 21 Father is alive and has a AAA Social History Hx Alcohol Use: Yes Alcoholic Drinks Per Day: daily Hx Substance Use: No Smoking Status: Current Every Day Smoker (unknown factors) Exam Vital Signs Vital Sign - Last Date Time Temp Pulse Resp B/P Pulse Ox O2 Delivery O2 Flow Rate FiO2 03/06/17 19:40 81 131/90 100 60 03/06/17 18:30 36.7 22 Mechanical Ventilator Exam General: Initially agitated female, appears older than stated age; sedated now HEENT: Pupils were equally round and non-constricted/dilated; ET tube in place Lymph: No lymphadenopathy Cardio: Regular rate and rhythm no murmurs Respiratory: CTA bilaterally with crackles Abdomen: Soft, positive bowel sounds Extremities: No edema Psych: Sedated Neuro: Sedated Skin: No rash Lab and Diagnostics Result Diagram: 03/06/17 1556 03/06/17 1556 X-Rays, CTs and MRIs Chest x-ray IMPRESSION: Tip of endotracheal tube is 1 cm above the benja, and should be pulled back 3-4 cm. Dictated by: Giovany Modi M.D. on 03/06/2017 at 15:[address] IMPRESSION: No acute intracranial abnormality is not identified on this CT without contrast. Dictated by: Ric Bobby M.D. on 03/06/2017 at 16:27 CTA chest 1. No acute pulmonary embolus. 2. Dependent air space opacities throughout the lungs suspicious for aspiration in the setting of recent cardiac arrest. 3. Bilateral, displaced anterior rib fractures presumably secondary to recent CPR. Dictated by: Sheela Garcia M.D. on 03/06/2017 at 16:[address] 1. No visualized fracture. 2. Pulmonary opacities bilaterally. Please see CT Chest 03/06/17 report for further details. Dictated by: Leticia Maza M.D. on 03/06/2017 at 15:[address] 1. Pulmonary opacities, partially visualized, possibly related to air space disease such as pneumonia or aspiration. 2. Air in the bladder, possibly related to antoine insertion. Other etiologies including infection cannot be excluded. 3. Bilateral rib fractures. Dictated by: Leticia Maza M.D. on 03/06/2017 at 15:59 Chest x-ray IMPRESSION: Central line in good position from a radiographic point of view. No radiographic complication is seen. Other tubes and lines are appropriate. Lungs are clear. Dictated by: Ric Bobby M.D. on 03/06/2017 at 17:51 12-lead ECG EKG 15:46: Prolonged QT with a possible ectopic atrial rhythm; Dr. Xiong reviewed and stated no STEMI Assessment & Plan 51-year-old female history hypertension, multiple pulmonary embolism and hepatic vein thrombosis, and alcohol abuse on chronic opioids and now Suboxone as of today who presents emergency department following a cardiac arrest. Currently cause of arrest is unknown but is concerning for opiate overdose with Suboxone and Percocet/oxycodone. Neurological: Patient appeared to be making some at least reactionary movements emergency department, and appear to be quite strong pulling herself up by the restraints and attempted take out her ET tube. She did not follow commands including turning towards voice. Patient was given 300 of fentanyl and more than 100 of propofol and was still extremely active. She was finally sedated with Versed 6 mg push and continued on bursitis after admitted to the floor. Patient remaining on fentanyl inverse at overnight for sedation. Cardio: Cause for the patient's arrest is currently unknown although there is a chance of this is due to Suboxone and continued use of her oxycodone and alcohol. states she is not drinking today and her alcohol level is 0. EKG was not overly concerning except for prolonged QT and troponin so far can easily be explained by CPR and resuscitation efforts. In any case the patient is undergoing hypothermic protocol, and does remain on telemetry. Lactic acid and troponin are being tract overnight. Does not appear to be primary cause, thus, heparin not started tonight. Respiratory: Patient was initially bucking the vent and increasing tidal volume and respiratory rate were helpful for only a short time. The patient became very agitated she was fighting the vent and essentially had very little ventilation during that time. Reports from from EMT that the patient aspirated a large amount and excess was found and oropharynx at time of intubation. CT of the chest does demonstrate consolidations but no overwhelming edema noted. First ABG after admission shows a pH of 7.39 with a normal PCO2. Bicarbonate from the lab was 15 indicating an anion gap metabolic acidosis likely caused by an expected lactic acidosis. However lactate levels seem to be difficult to obtain as multiple have been ordered and as of the time of this note, none are available. Vent settings are currently undergoing adjustment and repeat ABG in 1 hour and again in the am. CXR in a.m. Abdomen: Prophylactic with famotidine; patient also has elevated liver enzymes almost AST/ALT 2/1. Alkaline phosphatase is normal. Could be due to shock liver. With patient's history of alcohol abuse and is more likely due to chronic alcohol abuse. We will also order lipase tonight Infectious: Entirely expected that this patient has or will have aspiration pneumonia or pneumonitis. Patient started on Zosyn and MRSA swab taken. If positive will start Vanco. Patient's leukocytosis is likely to be due to resuscitation and arrest.Blood cultures were ordered and taken just minutes before the zosyn was registered as given. Renal: Kidneys appear to be well perfuses creatinine 0.67. Fluids are being given tonight with protocol for hypothermia, and we will recheck this in the morning. CK is elevated but only to 229 below threshold for any sort of rhabdo. Lines: Patient has a central line that has been signed off by radiology as well as an arterial line with a good pulse wave. Disposition: Patient status remains guarded due to unknown events leading up to this arrest. She has been admitted to the ICU under inpatient status with the duration greater than 2 midnights. Full code Pain Evaluation: Adequate Pain Control GI Prophylaxis: H2 pierce VTE Prophylaxis Indicated: Contraindicated Resuscitation Status: CPR: Attempt Resuscitation Time spent 120 minutes critical care time Attending Statement The patient was seen and examined together with on March 06 and I agree with the history, exam findings, and plan as outlined in the note above. I did participate in all aspects of the services provided today, including documentation and the plan of care. This patient presented in a presumed V. fib arrest. The patient arrived in the emergency department intubated very agitated. She has a history of both opiates and probable alcohol dependence. She took a normal small amount of fentanyl was intermittent improvement of symptoms also required Versed and fentanyl drip as well as propofol. The patient's QT interval was prolonged for unclear reasons. The patient had normal magnesium. There is evidence of an acute aspiration event based on description of field intubation. She will be placed on the hypothermia protocol and supported with postop now and Versed drips as well as propofol. We will manage her lactic acidosis resuscitation. Onesimo Cheek DO Mar 06, 2017 20:10 Eagle Perez MD Mar 07, 2017 07:33
[2017-03-06 20:15] LABS: INR 2.51 ratio
[2017-03-06] MEDS: LacriLube S.O.P. 3.5 Gm Ophthalmic Ointment BOTH_EYES SCH (20:30)
[2017-03-06 20:35] LABS: Magnesium 1.3 mg/dL (1.6-2.6); Phosphorus 3.3 mg/dL (2.5-4.9)
[2017-03-06 20:44] LABS: TROPONIN T 0.936 ug/L (0.0-0.011)
[2017-03-06] MEDS: Chlorhexidine 0.12% 15 mL Oral Solution MT SCH (21:01)
--- NOTE | 2017-03-06 21:46 | ABG ---
DateTimeAnalyzed 21:40:00 -_ pH ____7.246 - 7.350 7.450 pCO2 ___34.6__ -mmHg 35.0 45.0 pO2 ___97.6__ -mmHg 69.0 116 HCO3- ___14.5__ -mmol/L 22.0 26.0 ABE __-11.6__ -mmol/L -2.0 2.0 tHb ___13.2__ -g/dL 12.0 18.0 O2Hb ___94.3__ -% COHb ____0.4__ -% 0.0 1.5 MetHb ____1.1__ -% 0.4 1.5 sO2 ___95.7__ -% FIO2 ___21.0__ -% PEEP ____6.0__ -cmH2O Set_RR ___22.0__ -b/min Vt __480.0__ -L Drawn By TLA - Date/Time Notified____ 21:46:00 -_ Spontaneous_RR ___22.0__ -b/min Oxygen Device 1 VENTILATOR - Notified By TLA - Notified Whom _Karen-RN - B 755 -mmHg tO2 ___17.6__ -Vol% Eagle test N/A -
[2017-03-07] VITALS (18 sets, daily range): BP systolic 90–130; BP diastolic 61–85; PULSE 43–59; RESP 20–24; O2SAT 99–100
[2017-03-07 00:06] LABS: BASOPHILS % (AUTO) 0.1 % (0-3); EOSINOPHILS % (AUTO) 0.1 % (0-5); MONOCYTES % (AUTO) 4.5 % (4-12); Mean Corpuscular Volume 103.5 fL (81-100); NEUTROPHILS % (AUTO) 85.3 % (40-74); Platelet Count 341 bil/L (150-400)
[2017-03-07] MEDS: Chlorhexidine 0.12% 15 mL Oral Solution MT SCH ×6 (00:16→19:28)
[2017-03-07] MEDS: Piperacillin-Tazo 3.375 Gm Inj 3.375 GM in Dextrose 5% Minibag Plus 50 ML IV SCH ×3 (00:17→15:51)
[2017-03-07 00:51] LABS: Magnesium 2.3 mg/dL (1.6-2.6); Phosphorus 2.7 mg/dL (2.5-4.9)
[2017-03-07 00:52] LABS: TROPONIN T 0.646 ug/L (0.0-0.011)
--- NOTE | 2017-03-07 01:11 | ABG ---
DateTimeAnalyzed 01:05:00 -_ pH ____7.270 - 7.350 7.450 pCO2 ___32.9__ -mmHg 35.0 45.0 pO2 108 -mmHg 69.0 116 HCO3- ___14.6__ -mmol/L 22.0 26.0 ABE __-10.9__ -mmol/L -2.0 2.0 tHb ___13.4__ -g/dL 12.0 18.0 O2Hb ___95.6__ -% COHb ____0.3__ -% 0.0 1.5 MetHb ____1.0__ -% 0.4 1.5 sO2 ___96.9__ -% FIO2 ___70.0__ -% PEEP ____6.0__ -cmH2O Set_RR ___22.0__ -b/min Vt __480.0__ -L Drawn By TLA - Date/Time Notified____ 01:11:00 -_ Spontaneous_RR ___22.0__ -b/min Oxygen Device 1 VENTILATOR - Notified By TLA - Notified Whom _Karen-RN - B 756 -mmHg tO2 ___18.2__ -Vol% Eagle test N/A -
[2017-03-07] MEDS: Magnesium Sulf 4 Gm/100 mL H2O 4 GM in IV Premix 1 EACH IV PRN ×3 (01:26→18:12)
[2017-03-07] MEDS: Cisatracurium 200,000 mCg/100 mL NS IV SCH ×4 (03:29→19:24)
[2017-03-07] MEDS: 0.9% Sodium Chloride 1,000 ML IV SCH ×3 (04:07→22:08)
--- NOTE | 2017-03-07 06:19 | NUR ---
P) Cardiac/Respiratory Pt.'s cardiac rhythm sinus, became sinus sondra with a prolonged QTc when cooled to a core temp of 33c. QTc max 0.68, initially required infusion of 50mcg/kg/min of propofol and 6mg/hr of versed as well as 100mcg/hr of fentanyl to keep her from fighting the vent, was able to wean propofol and versed after she reached 33c. Lungs slightly coarse and decreased in bases bilat though that may be in part, due to body habitus and the cooling pads. Pt.'s family visited last night and her answered the admission questions as well as he was able. 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 Turning q2h and floating heels, SCD's in place. Pt.'s weight obtained but not until after cooling garments had been placed. E) Resting quietly with eyes closed.
[2017-03-07 06:23] LABS: BASOPHILS % (AUTO) 0.1 % (0-3); EOSINOPHILS % (AUTO) 0 % (0-5); MONOCYTES % (AUTO) 3.8 % (4-12); Mean Corpuscular Hemoglobin 35.3 pg (27.0-35.0); Mean Corpuscular Volume 103.5 fL (81-100); NEUTROPHILS % (AUTO) 88.6 % (40-74); Platelet Count 288 bil/L (150-400)
[2017-03-07 06:43] LABS: INR 3.32 ratio
[2017-03-07 06:49] LABS: Magnesium 2.9 mg/dL (1.6-2.6); Phosphorus 1.8 mg/dL (2.5-4.9)
[2017-03-07 07:02] LABS: TROPONIN T 0.267 ug/L (0.0-0.011)
[2017-03-07] MEDS ORDERED: DEXTROSE 5% IV ONE (08:20)
[2017-03-07] MEDS ORDERED: SODIUM PHOSPHATE IV ONE (08:20)
[2017-03-07] MEDS ORDERED: POTASSIUM CHLORIDE IV ONE (08:20)
[2017-03-07] MEDS ORDERED: Pantoprazole 4 mg/mL 10 mL Inj IVPUSH SCH (08:30)
[2017-03-07] MEDS: Calcium GLUCO 10% (Gm) Inj 2 GM in 0.9% Sodium Chloride 50 ML IV PRN (08:47)
[2017-03-07] MEDS: LacriLube S.O.P. 3.5 Gm Ophthalmic Ointment BOTH_EYES SCH ×2 (09:19→19:28)
[2017-03-07] MEDS: Midazolam 100 mg/100 mL Premix IV PRN (10:23)
--- NOTE | 2017-03-07 10:49 | NUR ---
Inpatient Wound Nurse Patient seen for Pressure Ulcer Protocol evaluation. Family stated that patient was full ambulatory without skin or wound challenges prior to cardiac event. Patient's primary RN stated that no posterior surface wounds have been identified since admission. CWON evaluated heels, elbows, and accessible areas, no bogginess or erythema noted. Primary RN aware that CWON will be alerted if any posterior wounds are observed. Patient is on appropriate mattress, heels floated, patient well-supported, no further, specific wound care needed at this time.
--- NOTE | 2017-03-07 11:23 | NUR ---
NUTRITION ASSESSMENT: ASSESS: Pt is a 51yo F admitted to CCU for cardiac arrest. She is currently intubated and sedated. NPO x1 day. Currently on hypothermia protocol. PMHX: HTN, PE, splenic cyst, alcohol abuse LABS: Reviewed. Cl 112, CO2 13, dual rate dealer .39, Glu 119, Ca 6.8, phos 1.8, Mg 2.9, AST 187, ALT 132, Alb 2.9 MEDS: Reviewed. Propofol, fentanyl GI: 0 BM SKIN: No PU per WC CURRENT WTS: 93.1kg, BMI 33.1kg/m2, IBW 59.1kg DIET: NPO EST. NEEDS: VENT/BMI Kcals: 1860-2050kcal/day (20-22kcal/kg) Pro: 90-105g/day (1.5-1.8g/kg IBW) Fluids: ~2350ml/day (25ml/kg) NUTRITION DIAGNOSIS: 1.) Inadequate oral intake related to decreased ability to consume sufficient energy as evidenced by current NPO status NUTRITION INTERVENTION: 1.) Will continue to monitor NPO status. If pt remains NPO for the next 24-48hrs, recommend nutrition support be considered. 2.) If TF to start, recommend Jevity 1.5 @ 10ml/hr. If tolerated, advance towards goal rate of 60ml/hr to provide 1980kcal and 85g pro. 3.) Adjust goal rate based on daily propofol rate MONITOR / EVAL: NPO/vent, wt, GI, labs, POC, nutrition status. Will continue to monitor per high nutrition risk guidelines
--- NOTE | 2017-03-07 11:41 | ABG ---
DateTimeAnalyzed 11:34:00 -_ pH ____7.229 - 7.350 7.450 pCO2 ___34.8__ -mmHg 35.0 45.0 pO2 156 -mmHg 69.0 116 HCO3- ___14.0__ -mmol/L 22.0 26.0 ABE __-12.4__ -mmol/L -2.0 2.0 tHb ___12.9__ -g/dL 12.0 18.0 O2Hb ___97.3__ -% COHb ____0.1__ -% 0.0 1.5 MetHb ____0.9__ -% 0.4 1.5 sO2 ___98.3__ -% FIO2 ___70.0__ -% PRVC 480 - PEEP ____6.0__ -cmH2O Set_RR ___20.0__ -b/min Vt __494.0__ -L Drawn By jmw - Date/Time Notified____ 11:40:00 -_ Spontaneous_RR ___20.0__ -b/min Oxygen Device 1 VENTILATOR - Notified By jmw - Notified Whom DR KENDREGEN - B 756 -mmHg tO2 ___17.9__ -Vol% OrderingPhysicianInitials bak - Eagle test N/A -
--- NOTE | 2017-03-07 11:51 | PROG NOTE ---
[address] [address] PROGRESS NOTE PATIENT: ERIC WESLEY : 1965 MR#: [id number] ADMIT: 03/06/2017 JOB ID: [id number] DATE: 03/07/2017 PULMONARY CRITICAL CARE FOLLOW UP NOTE: PROBLEMS: 1. Polysubstance abuse. 2. Alcohol abuse. 3. Agitated altered mental status. 4. Status post cardiac arrest. 5. Aspiration pneumonitis. SUBJECTIVE: None. Patient sedated on hypothermia protocol. OBJECTIVE: Vital signs show a temperature of 32.8. Pulse of 43, respiratory rate of 22 with the ventilator set at 22. Blood pressure 103/67, O2 sat on FiO2 of 70%, PEEP of 5, is 100%. I and O shows 2 L in, 1.4 L out. General appearance: Sedated on hypothermia protocol. Pupils 1-2 mm. Chest shows fairly good breath sounds with a musical inspiratory squeak in both mid to upper lung garrett anteriorly. Otherwise fairly good lung sounds. Heart: Regular rhythm. Heart tones normal. Abdomen is soft. Nondistended. Quiet. Extremities: No pretibial edema. LABORATORY DATA: Shows a white count of 16,000 with 88 polymorphonuclears, 7 lymphs, 3 monocytes. Hemoglobin of 13.1, slowly decreasing. Platelet count 288,000, slowly decreasing. Sodium 140, potassium 3.6, chloride 112, CO2 is 13. BUN 12, creatinine 0.39, glucose 119. Lactic acid 1.6. Calcium is 6.8 with an albumin of 2.9. Phosphorus low at 1.8, being repleted. Magnesium 2.9, mildly elevated. Total bilirubin 0.3. AST 187, mildly elevated, but decreasing. ALT 132, mildly elevated, but decreasing. CK 1249 and decreasing. Sputum shows few polys. Mixed yvonne is noted on Gram stain. Blood cultures pending. Chest x-ray shows lung garrett to be clear. Cardiac silhouette is normal. The tubes and lines in good position. Abdominal CT shows pulmonary opacities, air in the bladder related to Espinosa. Arterial blood gases on an FiO2 of 0.7, PEEP of 6, respiratory rate of 22, tidal volume of 480 shows a pO2 of 108, pCO2 of 32, pH of 7.27. ASSESSMENT: 1. Altered mental status. Likely arrhythmias due to hypoxemia from polysubstance abuse along with alcohol. Situation complicated by aspiration. In any case, hemodynamically she is fairly stable. Doing reasonably well. 2. Multiple electrolyte abnormalities. Phosphorus a bit low and being repleted. Calcium also a bit low and being repleted. 3. The patient on Coumadin for blood clot. INR a little high at 3.32 but otherwise not egregiously so. PLAN: 1. Continue current management. 2. Echocardiogram to assess cardiac function. 3. Replete phosphorus. Calcium seems reasonably good to me but being repleted in any case. 4. Obtain a list of medications, as there is some blood medication she took in the past for some genetic blood disorder that was taken in the past. Time spent so far in critical care 40 minutes. Spoke with the patient's about her current status. May be obtaining a list of medications for us which he is working on. Described the plan.
--- NOTE | 2017-03-07 11:56 | PCM.PNMED ---
Subjective Date of Service Mar 07, 2017 Subjective Patient seems to be doing well overnight and today. She is currently cool at 33 C. Blood pressure is holding. Propofol and Versed and fentanyl are being used for sedation. Zosyn continues. Patient did have a prolonged QT that is currently 680 and additional magnesium was administered this morning. Exam Vital Signs Vital Sign - Last Date Time Temp Pulse Resp B/P Pulse Ox O2 Delivery O2 Flow Rate FiO2 03/07/17 11:27 52 130/85 100 70 03/07/17 10:57 32.8 Mechanical Ventilator 03/07/17 07:43 22 Intake and Output 03/06/17 03/06/17 03/07/17 Cumulative From/Thru 15:00 23:00 07:00 03/06/17 15:58 - 03/07/17 06:13 Intake Total 2000 ml 5668 ml 7668 ml Output Total 1450 ml 675 ml 2125 ml Balance 550 ml 4993 ml 5543 ml Intake IV Total 2000 ml 5668 ml 7668 ml Output Urine Total 1450 ml 650 ml 2100 ml Gastric Drainage Total 25 ml 25 ml Exam General: Sedated HEENT: Pupils were equally round and non-constricted/dilated; ET tube in place Lymph: No lymphadenopathy Cardio: Regular rate and rhythm no murmurs Respiratory: CTA bilaterally with crackles Abdomen: Soft, positive bowel sounds Extremities: No edema Psych: Sedated Neuro: Sedated Skin: No rash IVs and Medications Medications Reviewed: Medications were reviewed in detail Lab and Diagnostics Result Diagram: 03/07/17 0600 03/07/17 0600 X-Rays, CTs and MRIs Chest x-ray IMPRESSION: Tip of endotracheal tube is 1 cm above the benja, and should be pulled back 3-4 cm. Dictated by: Giovany Modi M.D. on 03/06/2017 at 15:[address] IMPRESSION: No acute intracranial abnormality is not identified on this CT without contrast. Dictated by: Ric Bobby M.D. on 03/06/2017 at 16:27 CTA chest 1. No acute pulmonary embolus. 2. Dependent air space opacities throughout the lungs suspicious for aspiration in the setting of recent cardiac arrest. 3. Bilateral, displaced anterior rib fractures presumably secondary to recent CPR. Dictated by: Sheela Garcia M.D. on 03/06/2017 at 16:[address] 1. No visualized fracture. 2. Pulmonary opacities bilaterally. Please see CT Chest 03/06/17 report for further details. Dictated by: Leticia Maza M.D. on 03/06/2017 at 15:[address] 1. Pulmonary opacities, partially visualized, possibly related to air space disease such as pneumonia or aspiration. 2. Air in the bladder, possibly related to antoine insertion. Other etiologies including infection cannot be excluded. 3. Bilateral rib fractures. Dictated by: Leticia Mzaa M.D. on 03/06/2017 at 15:59 Chest x-ray IMPRESSION: Central line in good position from a radiographic point of view. No radiographic complication is seen. Other tubes and lines are appropriate. Lungs are clear. Dictated by: Ric Bobby M.D. on 03/06/2017 at 17:51 12-lead ECG EKG 15:46: Prolonged QT with a possible ectopic atrial rhythm; Dr. Xiong reviewed and stated no STEMI Assessment & Plan 51-year-old female history hypertension, multiple pulmonary embolism and hepatic vein thrombosis, and alcohol abuse on chronic opioids and now Suboxone as of today who presents emergency department following a cardiac arrest. Currently cause of arrest is unknown but is concerning for opiate overdose with Suboxone and Percocet/oxycodone. Neurological: Patient is currently sedated with propofol, Versed, fentanyl. Whether or not anoxic brain injury occurred is unknown at this time. However, reviewing additional labs the patient has no apparent kidney injury, chest x- ray does not show postarrest edema, and there does not appear to be any evidence of shock liver. Without additional organ dysfunction it is questionable whether there was significant anoxic injury. She will stay on the cooling protocol for this time and the map goal maintain around 80 if able. Cardio: This morning patient's QT is 680. Current feeling is that the patient likely has underlying prolonged QT, possibly due to the number of medications she is on. This is the case the patient may have arrested due to torsades, and was corrected with non-synchronized defibrillation with the AED or by paramedics. Currently she is in normal sinus rhythm. Her troponins sivakumar to 0.936 have been resolving over sense. This elevation is seen with primary cause likely from her arrest. Patient was given magnesium today due to the QT and this will hopefully improve as the patient is warmed. Echo will be ordered as well. Respiratory: ABG this morning shows metabolic acidosis with attempted compensation and CO2 of 32.9. Vent settings currently's table and patient's sedation is adequate for controlled ventilation. Initially, this arrest was thought possibly due to opioid overdose with Suboxone and Percocet, however patient's pupils were not constricted in the emergency department, and she awoke without the use of naloxone. X-ray is missing this morning, and we will order one this afternoon and again tomorrow morning. Last x-ray did not show pulmonary edema which may be a good sign following her arrest. Abdomen: Prophylactic with famotidine; patient also has elevated liver enzymes almost AST/ALT 2/. Alkaline phosphatase is normal. Patient does have a history of alcohol abuse and hepatic thrombosis. Evidently these might elevate LFTs. Infectious: MRSA swab negative. White count is stable. Remains on Zosyn for known aspiration with confirming CT. Renal: CK is elevated at 1000 but no kidney injury. There is a anion gap 15 with hyperchloremia and presumed metabolic acidosis. Will change fluids to lactated Ringer's to avoid the high chloride content. Lactate normal. Lines: Patient has a central line that has been signed off by radiology as well as an arterial line with a good pulse wave. Disposition: Patient status remains stable but prognosis guarded due to unknown events leading up to this arrest. Full code Pain Evaluation: Adequate Pain Control GI Prophylaxis: H2 pierce VTE Mechanical Devices: Intermittant Pneumatic CD Resuscitation Status: CPR: Attempt Resuscitation Attending Statement The patient was seen and examined together with Dr. Cheek on March 07 and I agree with the history, exam findings, and plan as outlined in the note above. I did participate in all aspects of the services provided today, including documentation and the plan of care. We will continue to treat this patient with a cardiac arrest suspected to be ventricular fibrillation and possibly to long QT syndrome. There is also concern of anoxic brain injury. She does remain intubated at this time. She remains sedated with propofol and fentanyl. We will avoid any QT prolonging medications. We will continue to attempt to wean her as irritable and extubated. Cardiac echo reveals a global hypokinesis with an EF of 30-35%. Onesimo Cheek DO Mar 07, 2017 11:56 Eagle Perez MD Mar 15, 2017 13:17
[2017-03-07 11:59] LABS: BASOPHILS % (AUTO) 0.1 % (0-3); EOSINOPHILS % (AUTO) 0 % (0-5); MONOCYTES % (AUTO) 3.8 % (4-12); Mean Corpuscular Hemoglobin 35.4 pg (27.0-35.0); Mean Corpuscular Volume 102.7 fL (81-100); Platelet Count 307 bil/L (150-400)
[2017-03-07 12:19] LABS: INR 4.19 ratio
[2017-03-07 12:31] LABS: Magnesium 3.2 mg/dL (1.6-2.6); Phosphorus 3.2 mg/dL (2.5-4.9)
[2017-03-07 12:35] LABS: TROPONIN T 0.172 ug/L (0.0-0.011)
[2017-03-07] MEDS: fentaNYL 2,500 mCg/250 mL 2,500 MCG in IV Premix 1 EACH IV PRN (15:19)
[2017-03-07] MEDS ORDERED: Calcium GLUCO 10% (Gm) 1 Gm/10 mL 50 mL Inj IV ONE (15:30)
--- NOTE | 2017-03-07 15:41 | DRSVH ---
[facility] [address] [place] [address] Echocardiogram Report Name: ERIC WESLEY MStudy Date: 03/2017 Height: 66 in Hospital Exam Location: [facility] Weight: 205 lb Gender: Female BSA: 2.0 m2 : 1965 Age: 51 yrs BP: 100/65 mmHg Reason For Study: CARDIAC ARREST Ordering Physician: Performed By: Lianna Cordoba Interpretation Summary The left ventricle is normal in size. There is mild concentric left ventricular hypertrophy. The ejection fraction is estimated to be 35-40%. There is moderate global hypokinesis of the left ventricle. There are no focal wall motion abnormalities. The right ventricle grossly appears normal in size with probable normal systolic function. Right ventricular systolic pressure is estimated to be 18 mmHg plus the clinically estimated CVP which cannot be estimated on this exam. Inspiratory collapse cannot be assessed because of mechanical ventilation, thus CVP cannot be estimated.. No other echocardiographic abnormalities seen. Procedure: A two-dimensional transthoracic echocardiogram with color flow and Doppler was performed. The study quality was technically adequate. There is no prior echocardiogram noted for this patient. The patient was in sinus bradycardia with heart rates between 49 and 62 bpm during the exam. Left Ventricle: The left ventricle is normal in size. There is mild concentric left ventricular hypertrophy. The ejection fraction is estimated to be 35-40%. There is moderate global hypokinesis of the left ventricle. There are no focal wall motion abnormalities. Diastolic function could not be accurately assessed due to unobtainable data. Right Ventricle: The right ventricle grossly appears normal in size with probable normal systolic function. Atria: The left atrium is mildly dilated. The right atrium is normal in size. There is no Doppler evidence for an interatrial shunt. Mitral Valve: The mitral valve leaflets appear mildly thickened, but open well. The mitral valve leaflets appear to open well. There is mild mitral regurgitation. Aortic Valve: The aortic valve is trileaflet. The aortic valve is slightly calcified. The aortic valve opens well. There is trace aortic regurgitation. Tricuspid Valve: The tricuspid valve is normal. There is mild tricuspid regurgitation. Right ventricular systolic pressure is estimated to be 18 mmHg plus the clinically estimated CVP which cannot be estimated on this exam. Pulmonic Valve: The pulmonic valve leaflets are thin and pliable; valve motion is normal. There is a trace or physiologic amount of pulmonic regurgitation. Great Vessels: The aortic root is normal size. The ascending aorta is normal in size. The aortic arch could not be visualized. The pulmonary artery is not well visualized, but is probably normal size. Inspiratory collapse cannot be assessed because of mechanical ventilation, thus CVP cannot be estimated.. Pericardium/ Pleura There is no pericardial effusion. There is no pleural effusion. MMode/2D Measurements & Calculations LVIDd: 4.8 cm RA long axis: 4.6 cm LVOT diam LVIDs: 3.9 cm LA A2 area: 21.4 cm FS: 18.3 % LA A4 area: 22.7 cm RA area: 12.5 cm AoV Opening EPSS: 0.76 cm LA length (vol): 5.3 cm RA vol: 28.9 ml IVSd: 1.1 cm LA vol: 78.6 ml RA : 14.3 ml/m2 Ao root diam LVPWd: 1.2 cm LA vol index: 38.9 ml/m asc Aorta Diam IVC diam: 2.6 cm EDV(MOD-sp2) LV mosley. diameter/BSA LV sys. diameter/BSA TAPSE: 1.3 cm (cm/m^2): 2.4 (cm/m^2): 1.9 ESV(MOD-sp2) EF(MOD-sp2) Doppler Measurements & Calculations Ao V2 max MV E max matty MV E/A: 1.1 TR max matty : 69.6 cm/sec : 55.1 cm/sec : 213.8 cm/sec Ao max PG MV A max matty TR max PG : 1.9 mmHg : 50.3 cm/sec : 18.3 mmHg Ao mean PG MV P1/2t: 79.4 msec PA V2 max : 58.5 cm/sec LVOT Max Matty PA mean PG : 66.1 cm/sec : 0.78 mmHg PA Accel Time HUSSEIN(I,D): 3.2 cm : 0.10 sec sev ratio MV dec time MV P1/2t max matty Ao V2 mean LV V1 max PG : 0.27 sec : 46.6 cm/sec MVA(P1/2t): 2.8 cm2 Ao V2 VTI LV V1 VTI: 15.9 cm HUSSEIN(V,D): 3.1 cm2 PA V2 mean HUSSEIN indexed to BSA : 42.0 cm/sec (cm^2/m^2): 1.6 Reading Physician:03:40 PM
[2017-03-07] MEDS: Pantoprazole 4 mg/mL 10 mL Inj IVPUSH SCH (16:02)
--- NOTE | 2017-03-07 17:15 | DRSVH ---
PROCEDURE: X-RAY CHEST ONE VIEW, PORTABLE ([id number]) INDICATIONS: intubation TECHNIQUE: One view of the chest was acquired. COMPARISON: [facility], CR, XR CHEST 1VW (PORTABLE), 03/06/2017, 17:16. FINDINGS: Surgical changes and devices: Stable position ETT, nasogastric tube and right IJ CVL. Lungs and pleura: No pleural effusions or pneumothorax. Lungs are clear, aside from consolidation i nvolving the medial left lung base. Mediastinum: Mediastinal contours appear normal. Heart size is normal. Bones and chest wall: No suspicious bony lesions. Overlying soft tissues appear unremarkable. IMPRESSION: Left basilar atelectasis versus aspiration or pneumonia. Correlate clinically. Dictated by: Long Lynch RRA Interpreted: Chandra Aguero MD on 03/07/2017 at 14:35 Approved by: Chandra Aguero M.D. on 03/07/2017 at 17:13
--- NOTE | 2017-03-07 17:20 | ABG ---
DateTimeAnalyzed 17:12:00 -_ pH ____7.290 - 7.350 7.450 pCO2 ___30.6__ -mmHg 35.0 45.0 pO2 139 -mmHg 69.0 116 HCO3- ___14.2__ -mmol/L 22.0 26.0 ABE __-10.9__ -mmol/L -2.0 2.0 tHb ___12.3__ -g/dL 12.0 18.0 O2Hb ___96.9__ -% COHb ____0.3__ -% 0.0 1.5 MetHb ____1.0__ -% 0.4 1.5 sO2 ___98.2__ -% FIO2 ___60.0__ -% PRVC 480 - PEEP ____6.0__ -cmH2O Set_RR ___20.0__ -b/min Vt __506.0__ -L Drawn By jmw - Date/Time Notified____ 17:18:00 -_ Spontaneous_RR ___20.0__ -b/min Oxygen Device 1 VENTILATOR - Notified By jmw - Notified Whom dDR KENDREGEN - B 755 -mmHg tO2 ___16.9__ -Vol% OrderingPhysicianInitials bak - Eagle test N/A -
--- NOTE | 2017-03-07 17:24 | NUR ---
Social Work: Screen/Multidisciplinary Rounds D: Per EMR review, pt is a 51 year old female admitted for cardiac arrest. Pt is [employer] insurance. PCP is Josemanuel Charles MD. NOK is Fco Gatica, spouse. Advanced directives not on file if completed. Readmit score is high, 3/8. Pt discussed in multidisciplinary rounds. Pt had just started a suboxone patch yesterday before experiencing cardiac arrest. Pt is currently on cooling protocol. SOURCE WATER PROTECTION SPECIALIST attempted to meet with the patient's spouse at bedside however he was not present. There have been multiple friends/family visiting however SOURCE WATER PROTECTION SPECIALIST was unsuccessful in making contact with the pt's spouse. A: Per EMR review, pt lives in [place] with her spouse and was previously I at baseline. P: Evolving; SOURCE WATER PROTECTION SPECIALIST to continue to follow and attempt to meet with spouse to complete initial assessment and discharge planning. MAVIS Beasley
--- NOTE | 2017-03-07 17:27 | NUR ---
status Hypothermia protocol continued, rewarming to be initiated approximately 23:30 this evening. No s/s of shivering. Fentanyl, versed and propofol sedation continued. Minimizing propofol use as pt tolerates. SB per bus monitor, HR mid 40s to 50s. QTC enlongated, MD aware. Continuing to monitor labs closely. Pressure stable, MAP maintained in mid 70s to 80s. NS infusing at 125cc/hr. PRVC with 50% fi02 and 6 of PEEP. Oxygen saturation stable throughout shift. Minimal creamy white secretions with ET suction. NG to low continous wall suction with reddish/brown output. Blood glucose controlled. Will continue to monitor.
--- NOTE | 2017-03-07 17:31 | CONS ---
[address] [address] CONSULTATION REPORT PATIENT: ERIC WESLEY : 1965 MR#: [id number] ADMIT: 03/06/2017 JOB ID: [id number] CARDIOLOGY CONSULTATION: DATE OF SERVICE: 03/07/2017 HISTORY OF PRESENT ILLNESS: This patient is a 51-year-old female who presented yesterday late afternoon with an [id number] cardiac arrest. She apparently had gone to the bathroom and was just getting up from the toilet when she collapsed into the bath tub. Her found her and began CPR and called EMS. She ultimately had an AED applied by the paramedics and was advised to shock after 2 minutes. EMS arrived and found the patient with a good pulse and CPR was ceased. She was hypoxemic with an O2 saturation of 60% and a blood pressure of 180/100. It is not clear to me if she had received epinephrine. She was intubated and brought to the emergency department. This patient has a history of surgery for a large splenic cyst back in February 2015, complicated by postoperative ileus and possible abscess. She presented in November of this year with a reported history of previous hepatic vein thrombus and pulmonary embolus with a history that is uncertain based on review of the records. She presented to the emergency department in November of this year on warfarin anticoagulation 15 mg daily with an INR of 2. Workup at [facility] revealed a positive antiphospholipid antibody. The patient was sent home on anticoagulant therapy. She has a history as well of chronic pain and has been medication and recently she had been trying to get away from narcotics and was started up on Suboxone patch on the day of presentation. She had been using large doses apparently of oxycodone and Percocet and also has a history of increased alcohol use which is as yet undetermined. MEDICATIONS: Home medications reportedly included lisinopril-hydrochlorothiazide 20/25 mg, Nexium 40 mg capsules, oxycodone and Percocet and Zofran. She has had previous hysterectomy, splenectomy and in addition to splenic cyst removal. FAMILY HISTORY: Notable for the fact that apparently her mother at age 21 as listed in the chart. The reason for her is listed as rheumatic fever, though I suspect she probably had inherited long QT syndrome. I suspect that is the etiology of her mother's as well. SOCIAL HISTORY: As noted above. PHYSICAL EXAMINATION: This patient is 5 feet 6 inches tall and weighs 205 pounds with a body mass index of 33. She is being cooled to 32 degrees, and as a result, she is in a sinus bradycardia with rates in the 50s. Her blood pressures been generally ranging between 100 and 130 systolic. She is on a ventilator with FiO2 of 60, pulse oximetry of 100% and blood gases which demonstrate partially compensated metabolic acidosis. The rest of examination is noncontributory. Again her extremities are obviously cold. I do not detect much in the way of edema. Her neck veins are difficult to discern. Heart tones are distant and unremarkable. LABORATORY DATA: Notable for elevated white blood cell count. Her platelet count is normal. Chemistries demonstrate evidence of metabolic acidosis with a creatinine of 0.45, electrolytes are otherwise normal. Lactic acid level was increased to 2.3. Troponin is moderately abnormal. Transaminase levels are moderately elevated. IMAGING STUDIES: Include CT angiography of the chest. This demonstrates absence of significant aortic or coronary atherosclerosis. She does have bilateral dependent infiltrates likely related to aspiration. Apparently also notable for displaced anterior rib fractures which I cannot see. EKGs are notable for prominent QT prolongation. Her EKG on presentation shows what appears to be a low atrial rhythm with a rate of 81 beats per minute and a corrected QT interval of 596 msec with diffuse T-wave abnormalities. Review of previous EKGs dating back to her surgery for splenic cyst in February 2015 also demonstrated significant QT prolongation. Specifically her EKG from March 18, 2015 shows a normal sinus rhythm with a corrected QT interval 542 msec, though the patient never did receive a diagnosis of long QT syndrome. 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 She is a candidate for implantable cardioverter-defibrillator placement once she recovers. Also family screening should be considered for her long QT syndrome. A website exists where medication can be reviewed for potential to aggravate long QT intervals and that is [employer] Her medications in the future need to be carefully reviewed to avoid issues with QT prolongation, although that will be less of a risk with an implantable cardioverter-defibrillator in place. At this point, Cardiology will continue to follow briefly until the patient's neurologic recovery is clear and her pneumonia is well treated at which point will consider consultation with Dr. Salazar for implantable cardioverter-defibrillator placement. I appreciate the opportunity of seeing this patient and will follow up with her care tomorrow briefly.
[2017-03-07 17:53] LABS: Magnesium 2.4 mg/dL (1.6-2.6)
--- NOTE | 2017-03-07 19:11 | PCM.PROC ---
Procedure Note Date of Service: Mar 06, 2017 Pre Procedure Diagnosis: Cardiac Arrest Post Procedure Diagnosis: Cardiac Arrest Procedure Details: Date: 03/06/17 Time: 1900 Indication: Hemodynamic monitoring Resident: Onesimo Cheek DO Attending: Eagle Perez MD; Luis Pantoja MD A time-out was completed verifying correct patient, procedure, site, positioning , and special equipment if applicable. Allens test was performed to ensure adequate perfusion. The patients left wrist was prepped and draped in sterile fashion. A arterial line was introduced into the radial artery. The catheter was threaded over the guide wire and the needle was removed with appropriate pulsatile blood return. The catheter was then dressed in place to the skin with a sterile dressing. Perfusion to the extremity distal to the point of catheter insertion was checked and found to be adequate. Dr. Perez and Scarlett were present for the entire procedure. Estimated Blood Loss: 5-10cc The patient tolerated the procedure well and there were no complications. Attending Statement Placement of a arterial radial line was supervised with Dr. Cheek. I participated in all aspects of the procedure with direct supervision. There were no complications. The patient does have good transducer readings after placement of a line. Ultrasound guidance was used. Onesimo Cheek DO Mar 07, 2017 19:11 Eagle Perez MD Mar 15, 2017 13:22
--- NOTE | 2017-03-07 19:15 | PCM.PROC ---
Procedure Note Date of Service: Mar 07, 2017 Pre Procedure Diagnosis: Cardiac arrest Post Procedure Diagnosis: Cardiac arrest Procedure: Central line placement Procedure Details: Date: 03/06/17 Time: 1730 Indication: Intravenous access Resident: Onesimo Cheek D.O. Attending: Eagle Perez M.D. A time-out was completed verifying correct patient, procedure, site, positioning , and special equipment if applicable. The patient was placed in a dependent position appropriate for central line placement based on the vein to be cannulated. The patients right neck was prepped and draped in sterile fashion. 1% Lidocaine was used to anesthetize the surrounding skin area. A triple lumen catheter was introduced into the the right internal jugular using the Seldinger technique and under ultrasound guidance. The catheter was threaded smoothly over the guide wire and appropriate blood return was obtained. Each lumen of the catheter was evacuated of air and flushed with sterile saline. The catheter was then dressed in place to the skin with a sterile dressing. Perfusion to the extremity distal to the point of catheter insertion was checked and found to be adequate. Dr. Perez was present for the entire procedure. Estimated Blood Loss: 5-10 mL The patient tolerated the procedure well and there were no complications. Attending Statement Drug supervised and participated in the placement of a central venous catheter with Dr. Fitch on March 07. The procedure well without complication and involved only 1 culture. Ultrasound guidance was used for placement of the internal jugular line. Onesimo Cheek DO Mar 07, 2017 19:15 Eagle Perez MD Mar 15, 2017 13:23
[2017-03-07] MEDS: Midazolam Inj 100 MG in IV Premix 1 EACH IV SCH (23:43)
[2017-03-08] VITALS (12 sets, daily range): BP systolic 90–158; BP diastolic 57–84; PULSE 45–68; RESP 20–36; O2SAT 97–100
[2017-03-08] MEDS: Chlorhexidine 0.12% 15 mL Oral Solution MT SCH ×6 (00:11→20:07)
[2017-03-08] MEDS: Piperacillin-Tazo 3.375 Gm Inj 3.375 GM in Dextrose 5% Minibag Plus 50 ML IV SCH ×3 (00:11→15:44)
[2017-03-08 00:35] LABS: Magnesium 2.7 mg/dL (1.6-2.6); Phosphorus 2.3 mg/dL (2.5-4.9)
[2017-03-08] MEDS: Norepineph 8,000 mCg/250 mL NS 8,000 MCG in IV Premix 1 EACH IV PRN (00:51)
[2017-03-08] MEDS: Calcium GLUCO 10% (Gm) Inj 2 GM in 0.9% Sodium Chloride 50 ML IV PRN (01:34)
--- NOTE | 2017-03-08 02:38 | NUR ---
P) Cardiac/Respiratory Pt. started the rewarming phase of the hypothermia protocol at approx. 2345 last night, cardiac rhythm had become sinus sondra with an IVCD in the 40's, QTc was very long, max so far was 0.75, MAP's dropped into the 60's so norepinephrine was started to keep MAP above 80 after there was no improvement after a 2L bolus of LR. Pt. had lots of family visit last night and while she did not follow commands or seem to track she did open her eyes spontaneously and was fighting the vent with a respiratory rate in the 40's. Sedation was titrated up and she was able to work with the vent more appropriately. Lungs continue coarse and decreased with a small amount of whitish phlegm suctioned from ET tube, cough is very weak. I) Meds per 's orders, turning q2h and continuous rotation on, floating heels. E) Currently resting quietly with eyes closed. Attempting to titrate propofol down again.
[2017-03-08] MEDS: 0.9% Sodium Chloride 1,000 ML IV SCH (04:48)
--- NOTE | 2017-03-08 05:34 | NUR ---
P) Sedation Pt. becomes extremely tachypnic with any attempt to wean propofol, with respiratory rates in the upper 30's and pulling on restraints, eyes open but do not appear to track. I) increased propofol again. E) Currently resting more quietly, RR still in the mid to upper 20's.
--- NOTE | 2017-03-08 05:50 | ABG ---
DateTimeAnalyzed 05:43:00 -_ pH ____7.292 - 7.350 7.450 pCO2 ___30.2__ -mmHg 35.0 45.0 pO2 109 -mmHg 69.0 116 HCO3- ___14.1__ -mmol/L 22.0 26.0 ABE __-10.9__ -mmol/L -2.0 2.0 tHb ___12.0__ -g/dL 12.0 18.0 O2Hb ___96.7__ -% COHb ____0.4__ -% 0.0 1.5 MetHb ____1.0__ -% 0.4 1.5 sO2 ___98.1__ -% FIO2 ___21.0__ -% PEEP ____6.0__ -cmH2O Set_RR ___20.0__ -b/min Vt __480.0__ -L Drawn By MD - Date/Time Notified____ 05:49:00 -_ Spontaneous_RR ___20.0__ -b/min Oxygen Device 1 VENTILATOR - Notified By MD - Notified Whom RN K.ROSA - B 756 -mmHg tO2 ___16.5__ -Vol% Eagle test N/A -
[2017-03-08 06:23] LABS: Magnesium 2.3 mg/dL (1.6-2.6); Phosphorus 2.5 mg/dL (2.5-4.9)
[2017-03-08] MEDS: Dextrose 5% 0.45% NaCl 1,000 ML IV SCH ×3 (06:31→22:45)
[2017-03-08] MEDS: Pantoprazole 4 mg/mL 10 mL Inj IVPUSH SCH ×2 (07:51→15:45)
[2017-03-08] MEDS: LacriLube S.O.P. 3.5 Gm Ophthalmic Ointment BOTH_EYES SCH ×2 (07:52→20:07)
[2017-03-08] MEDS: Cisatracurium 200,000 mCg/100 mL NS IV SCH ×4 (08:06→20:07)
[2017-03-08] MEDS ORDERED: Furosemide 10 mg/mL 2 mL Inj IVPUSH ONE (08:50)
--- NOTE | 2017-03-08 09:20 | NUR ---
restraints verbal order from MD to continue non behavioural restraints.
--- NOTE | 2017-03-08 10:49 | DRSVH ---
PROCEDURE: X-RAY CHEST ONE VIEW, PORTABLE ([id number]) INDICATIONS: intubation TECHNIQUE: One view of the chest was acquired. COMPARISON: [facility], CR, XR CHEST 1VW (PORTABLE), 03/07/2017, 11:56. FINDINGS: Surgical changes and devices: Stable position ETT, nasogastric tube and right IJ CVL. Lungs and pleura: No pleural effusions or pneumothorax. Lungs are clear, aside from consolidation i nvolving the medial left lung base. Mediastinum: Mediastinal contours appear normal. Heart size is normal. Bones and chest wall: No suspicious bony lesions. Overlying soft tissues appear unremarkable. IMPRESSION: Persistent left basilar consolidation not significantly changed. Dictated by: Long Lynch RRA Interpreted: Ric Bobby MD on 03/08/2017 at 8:55 Approved by: Ric Bobby M.D. on 03/08/2017 at 10:47
--- NOTE | 2017-03-08 11:08 | NUR ---
NUTRITION FOLLOW-UP ASSESS: Pt is a 51yo F admitted to CCU for cardiac arrest. She is currently intubated and sedated. NPO x2 day. Currently re-warming. Cardiology is following. PMHX: HTN, PE, splenic cyst, alcohol abuse LABS: Reviewed. Cl 112, CO2 13, rug weaver .39, Glu 119, Ca 6.8, phos 1.8, Mg 2.9, AST 187, ALT 132, Alb 2.9 MEDS: Reviewed. Propofol @ 15.8ml/hr providing 417kcal/day, fentanyl GI: 0 BM SKIN: No PU per WC CURRENT WTS: 100.7kg, BMI 35.8kg/m2, admit wt 93kg, IBW 59.1kg DIET: NPO x2 EST. NEEDS: VENT/BMI Kcals: 1860-2050kcal/day (20-22kcal/kg) Pro: 90-105g/day (1.5-1.8g/kg IBW) Fluids: ~2350ml/day (25ml/kg) NUTRITION DIAGNOSIS: 1.) Inadequate oral intake related to decreased ability to consume sufficient energy as evidenced by current NPO status--PERSISTS NUTRITION INTERVENTION: 1.) Will continue to monitor NPO status. If pt remains NPO/vent for the next 24hrs, recommend nutrition support be considered. 2.) If TF to start, recommend Jevity 1.5 @ 10ml/hr. If tolerated, advance towards goal rate of 50ml/hr to provide 1650kcal (2067kcal w/propofol) and 70g pro (100% kcal and 77% pro needs) 3.) Adjust goal rate based on daily propofol rate 4.) Recommend add prosource once TF at goal rate to better meet protein needs MONITOR / EVAL: NPO/vent, TF start?, wt, GI, labs, POC, nutrition status. Will continue to monitor per high nutrition risk guidelines
--- NOTE | 2017-03-08 11:14 | NUR ---
Social Work: Attempted Assessment/Multidisciplinary Rounds D: Pt discussed in multidisciplinary rounds with attending and resident providers. Pt remains in CCU, and is being rewarmed today. They anticipate several more days of ventilation once rewarmed. Pt will likely require a pacer placement before discharge. [employer] attempted to contact the patient's spouse to complete assessment. No answer. Left message requesting return phone call. A: Pt who lives in [place], alone and I at baseline. P: Evolving; [employer] to continue to attempt to complete assessment with pt's spouse and follow pt's clinical course to assess for d/c needs. MAVIS Beasley
[2017-03-08] MEDS: Midazolam Inj 100 MG in IV Premix 1 EACH IV SCH (11:31)
[2017-03-08] MEDS: fentaNYL 2,500 mCg/250 mL 2,500 MCG in IV Premix 1 EACH IV PRN (13:04)
--- NOTE | 2017-03-08 14:07 | PCM.PNMED ---
Subjective Date of Service Mar 08, 2017 Subjective Pulmonary Critical Care Progress Note Brief Hx of present illness. 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 Of note patient had just started using a Suboxone patch the same day. Overnight: patient started rewarming approximately 2330, and is currently 36.0 Celsius. Patients electrolytes specifically her Mg and Phos were low but have been corrected now. Overnight patient had decreased urine output per nursing staph despite being up 12L fluid and 13 kg since admission. Lasix were started this AM in attempt to remove fluid and she has responded well with out put of nearly 2L via Antoine. Patients WBC slightly increased to 17 today, and patient continues on Zosyn for aspiration coverage given the large amount of vomitous found in her oropharynx during recussitation in the field. Patient remains sedated on Fentanyl 100 mcg, Versed 7 mg, and Propofol 30. Patient is saturating 100% on VENT, settings include Vt of 480, PEEP 7, FIO2 of 50%, and RR 20 peak pressures of 30. Last ABG 03/06/2017 pH 7.29, PCO2 30.2, PO2 of 109, HCO3- 14.1. Exam Vital Signs Vital Sign - Last Date Time Temp Pulse Resp B/P Pulse Ox O2 Delivery O2 Flow Rate FiO2 03/08/17 11:49 59 97/57 100 50 03/08/17 08:24 Ventilator 03/08/17 08:21 34.2 20 Intake and Output 03/07/17 03/07/17 03/08/17 Cumulative From/Thru 15:00 23:00 07:00 03/06/17 15:58 - 03/08/17 06:23 Intake Total 2613 ml 5846 ml 86922 ml Output Total 680 ml 900 ml 3705 ml Balance 1933 ml 4946 ml 92222 ml Intake IV Total 2613 ml 5846 ml 24496 ml Output Urine Total 530 ml 750 ml 3380 ml Gastric Drainage Total 150 ml 150 ml 325 ml Exam General: Sedated and Intubated, currently rewarming from cooling protocol HEENT: Eyes PERLLA, no erythema, Neck no adenopathy CHeart: Regular rate and rhythm no murmurs, S1, S2 present Lungs: CTA bilaterally, with mild crackles Abdomen: Soft,non distended, no Bowel tones detected Extremities: No edema, warm, Dry. Neuro: Sedated Skin: Warm, Dry, No rash IVs and Medications Medications Reviewed: Medications were reviewed in detail Lab and Diagnostics Result Diagram: 03/07/17 1148 03/08/17 1222 X-Rays, CTs and MRIs Chest x-ray IMPRESSION: Tip of endotracheal tube is 1 cm above the benja, and should be pulled back 3-4 cm. Dictated by: Giovany Modi M.D. on 03/06/2017 at 15:[address] IMPRESSION: No acute intracranial abnormality is not identified on this CT without contrast. Dictated by: Ric Bobby M.D. on 03/06/2017 at 16:27 CTA chest 1. No acute pulmonary embolus. 2. Dependent air space opacities throughout the lungs suspicious for aspiration in the setting of recent cardiac arrest. 3. Bilateral, displaced anterior rib fractures presumably secondary to recent CPR. Dictated by: Sheela Garcia M.D. on 03/06/2017 at 16:[address] 1. No visualized fracture. 2. Pulmonary opacities bilaterally. Please see CT Chest 03/06/17 report for further details. Dictated by: Leticia Maza M.D. on 03/06/2017 at 15:[address] 1. Pulmonary opacities, partially visualized, possibly related to air space disease such as pneumonia or aspiration. 2. Air in the bladder, possibly related to antoine insertion. Other etiologies including infection cannot be excluded. 3. Bilateral rib fractures. Dictated by: Leticia Maza M.D. on 03/06/2017 at 15:59 Chest x-ray IMPRESSION: Central line in good position from a radiographic point of view. No radiographic complication is seen. Other tubes and lines are appropriate. Lungs are clear. Dictated by: Ric Bobby M.D. on 03/06/2017 at 17:51 12-lead ECG EKG 15:46: Prolonged QT with a possible ectopic atrial rhythm; Dr. Xiong reviewed and stated no STEMI Assessment & Plan 51-year-old female history hypertension, multiple pulmonary embolism and hepatic vein thrombosis, and alcohol abuse on chronic opioids and Suboxone for one day on day of admit. Pt presented ED following a cardiac arrest. Currently cause of arrest is unknown but is concerning for opiate overdose with Suboxone and Percocet/oxycodone. # s/p Cardiac Arrest, with Encephalopathy, present on admission, Active. Currently intubated and sedated on Fentanyl, Propofol, Midazolam, and Nimbex, Pressor support with Norepi continues to maintain MAP 80 Likely arrhythmia (possibly Torsade) due to hypoxemia from polysubstance abuse along with alcohol, and hx of Long QT syndrome, and in association with strong family hx of Long QT. Electrolytes Phos and Magnesium now repleted Echo with global hypokinesis but without focal wall abnormality, LV concentric hypertrophy, LVEF 35-40% Maintain Magnesium in normal range to avoid further arrhythmia . Patient actively rewarming' Will start trophic feeds. Will continue to monitor patients neurologic status as she starts to wake up from sedation Starting Jevity 1.5 trophic feeds at 10 ml/hr and titrate up as tolerated # Fever Patinent febrile since fully rewarmed. IV Tylenol ineffective Continue with cooling protocol # Hx of blood clots. Anticoagulated on Coumadin for blood clot. INR a little high at 3.32 Recent diagnosed with partial portal vein thrombosis Apparently tested positive for Phospholipid antibody in the past. # Aspiration Pneumonia WBC trending up today at 17 Continue Zosyn. Time spent 45 minutes GI Prophylaxis: H2 pierce VTE Mechanical Devices: Intermittant Pneumatic CD Resuscitation Status: CPR: Attempt Resuscitation Attending Statement The patient was seen and examined together with Dr. Lewis on 03/08/2017 and I agree with the history, exam and plan as outlined in the note above. Liam Lewis DO Mar 08, 2017 14:07 Luis Pantoja MD Mar 15, 2017 10:15 as an arterial line with a good pulse wave. Disposition: Patient status remains stable but prognosis guarded due to unknown events leading up to this arrest. Full code GI Prophylaxis: H2 pierce VTE Mechanical Devices: Intermittant Pneumatic CD Resuscitation Status: CPR: Attempt Resuscitation Liam Lewis DO Mar 08, 2017 14:07
--- NOTE | 2017-03-08 14:58 | PCM.PNMED ---
Subjective Date of Service Mar 08, 2017 Subjective Overnight patient was stable. She is currently maxed out on Versed, and also has high rates of fentanyl and propofol. Discussion with this morning was very useful in that he related that her mother had a rhythm problem that seemed to be genetic, and her granddaughter has a heart condition with an AICD placed. It sounds as if this condition has to do with prolonged QT syndrome. Exam Vital Signs Vital Sign - Last Date Time Temp Pulse Resp B/P Pulse Ox O2 Delivery O2 Flow Rate FiO2 03/08/17 11:49 59 97/57 100 50 03/08/17 08:24 Ventilator 03/08/17 08:21 34.2 20 Intake and Output 03/07/17 03/07/17 03/08/17 Cumulative From/Thru 15:00 23:00 07:00 03/06/17 15:58 - 03/08/17 06:23 Intake Total 2613 ml 5846 ml 50544 ml Output Total 680 ml 900 ml 3705 ml Balance 1933 ml 4946 ml 69904 ml Intake IV Total 2613 ml 5846 ml 56729 ml Output Urine Total 530 ml 750 ml 3380 ml Gastric Drainage Total 150 ml 150 ml 325 ml Exam General: Sedated HEENT: Pupils were equally round ; ET tube in place Lymph: No lymphadenopathy Cardio: Regular rate and rhythm no murmurs Respiratory: CTA bilaterally with crackles Abdomen: Soft, positive bowel sounds Extremities: No edema Psych: Sedated Neuro: Sedated Skin: No rash IVs and Medications Medications Reviewed: Medications were reviewed in detail Lab and Diagnostics Result Diagram: 03/07/17 1148 03/08/17 1222 X-Rays, CTs and MRIs Chest x-ray IMPRESSION: Tip of endotracheal tube is 1 cm above the benja, and should be pulled back 3-4 cm. Dictated by: Giovany Modi M.D. on 03/06/2017 at 15:[address] IMPRESSION: No acute intracranial abnormality is not identified on this CT without contrast. Dictated by: Ric Bobby M.D. on 03/06/2017 at 16:27 CTA chest 1. No acute pulmonary embolus. 2. Dependent air space opacities throughout the lungs suspicious for aspiration in the setting of recent cardiac arrest. 3. Bilateral, displaced anterior rib fractures presumably secondary to recent CPR. Dictated by: Sheela Garcia M.D. on 03/06/2017 at 16:[address] 1. No visualized fracture. 2. Pulmonary opacities bilaterally. Please see CT Chest 03/06/17 report for further details. Dictated by: Leticia Maza M.D. on 03/06/2017 at 15:[address] 1. Pulmonary opacities, partially visualized, possibly related to air space disease such as pneumonia or aspiration. 2. Air in the bladder, possibly related to antoine insertion. Other etiologies including infection cannot be excluded. 3. Bilateral rib fractures. Dictated by: Leticia Maza M.D. on 03/06/2017 at 15:59 Chest x-ray IMPRESSION: Central line in good position from a radiographic point of view. No radiographic complication is seen. Other tubes and lines are appropriate. Lungs are clear. Dictated by: Ric Bobby M.D. on 03/06/2017 at 17:51 12-lead ECG EKG 15:46: Prolonged QT with a possible ectopic atrial rhythm; Dr. Xiong reviewed and stated no STEMI Assessment & Plan 51-year-old female history hypertension, multiple pulmonary embolism and hepatic vein thrombosis, and alcohol abuse on chronic opioids and now Suboxone as of today who presents emergency department following a cardiac arrest. Currently cause of arrest is unknown but is concerning for opiate overdose with Suboxone and Percocet/oxycodone. Neurological: Patient is currently sedated with propofol, Versed, fentanyl. Continue warming protocol. After warm will allow 24 hours of stability before lifting sedation Cardio: It is becoming more likely that this patient had torsades causing her arrest with resuscitation by defibulation. Respiratory: Continued metabolic acidosis not at 7.23. Switched NS to LR as possible. Diuresing today. Abdomen: Prophylactic with famotidine; LFT's resolving. Will recheck in AM. Infectious: MRSA swab negative. White count is stable. Remains on Zosyn for known aspiration with confirming CT. Renal: Renal function normal Lines: Patient has a central line that has been signed off by radiology. Art line failed. Disposition: Patient here for at least 3-5 days. Pain Evaluation: Adequate Pain Control GI Prophylaxis: H2 pierce VTE Mechanical Devices: Intermittant Pneumatic CD Resuscitation Status: CPR: Attempt Resuscitation Time spent 40 minutes Attending Statement I interviewed and examined the patient on rounds today. Patient needs to detox then will require further evaluation of probable cardiac syncope. I agree with the assessment and plan as stated above. Onesimo Cheek DO Mar 08, 2017 14:58 Jean Ortiz MD Mar 08, 2017 18:15
--- NOTE | 2017-03-08 15:11 | NUR ---
P:Resp, Cardiac, Neuro, Nutrition, Social I,E: Pt continues on the vent, ABG was stable this am, no changes required. She has thick yellow sputum suctioned infrequently. Sats are 99-100% on 50%. Pt continues to have prolonged QT, MD is aware. She has IVCD at times. Lasix 20mg was given with brisk result pt has had > 1000cc UOP. Pt remains sedated at this time per protocol, as she is still on the vent and re-warming. Pupils are size3 and reactive to light. Per report she does wake up and pull against restraints. MD discussed starting tricke tube feeding this afternoon this will start via NG. Pt has supportive family who have been at the bedside on and off throughout the day. MD was able to update family on plan of care. Art line DC'd today as it was not reading or drawing. Site is [facility].
[2017-03-08] MEDS ORDERED: Ketorolac 15 mg/mL Inj IVPUSH ONE (15:30)
[2017-03-08] MEDS: Acetaminophen IV 1,000 MG in IV Premix 1 EACH IV PRN (17:35)
--- NOTE | 2017-03-08 17:46 | NUR ---
Pt reached 37C at approx 1600hrs Pt temp has continued to rise despite arctic sun controlling and actively cooling. Tylenol given IV for pain but will have pos effect on reducing fever also. Ice packs have been applied under pt armpits. Pt has been agitated and has increased RR up to 40's. MD is aware. bolus of fentanyl and versed given to help with this and RR is now back to 20 and pt is not restless at this time. Will continue to monitor and administer meds as needed. Temp is currently 38C.
[2017-03-09] VITALS (10 sets, daily range): BP systolic 111–144; BP diastolic 67–94; PULSE 53–80; RESP 20–22; O2SAT 97–100
[2017-03-09] MEDS: Piperacillin-Tazo 3.375 Gm Inj 3.375 GM in Dextrose 5% Minibag Plus 50 ML IV SCH ×3 (00:06→16:07)
[2017-03-09] MEDS: Chlorhexidine 0.12% 15 mL Oral Solution MT SCH ×6 (00:06→19:47)
[2017-03-09] MEDS: MIDAZOLAM IV SCH ×2 (02:13→12:35)
[2017-03-09] MEDS: SODIUM CHLORIDE 0.9% IV SCH ×2 (02:13→12:35)
[2017-03-09] MEDS: Acetaminophen IV 1,000 MG in IV Premix 1 EACH IV PRN ×2 (03:07→12:25)
[2017-03-09 03:19] LABS: BASOPHILS % (AUTO) 0.1 % (0-3); EOSINOPHILS % (AUTO) 0.6 % (0-5); MONOCYTES % (AUTO) 2.6 % (4-12); Mean Corpuscular Hemoglobin 35.1 pg (27.0-35.0); Mean Corpuscular Volume 103.5 fL (81-100); NEUTROPHILS % (AUTO) 88.1 % (40-74); Platelet Count 294 bil/L (150-400)
[2017-03-09 03:58] LABS: Magnesium 1.7 mg/dL (1.6-2.6); Phosphorus 2.2 mg/dL (2.5-4.9)
--- NOTE | 2017-03-09 05:04 | NUR ---
P) Fever/Respiratory Pt. continues febrile despite arctic sun cooling wraps, T-max 37.3c core temp, lungs with coarse breath sounds , scattered rales that mostly clear with suction, phlegm suctioned from ET tube now greenish, alfonso, yellow, and thick. Pt. has a weak cough. Pt.'s eyes open spontaneously but again no tracking noted and gaze deviates to ceiling, does not follow any commands as yet. Cardiac rhythm sinus with a prolonged QTc, longest was 0.72, no ectopy noted, requiring increasing amounts of norepinephrine to maintain BP with a MAP >80. I) Meds per 's orders, cont. to monitor, continuous rotation and turning q2h, floating heels. E) Currently resting quietly with eyes closed.
--- NOTE | 2017-03-09 05:05 | ABG ---
DateTimeAnalyzed 04:56:45 -_ pH ____7.365 - 7.350 7.450 pCO2 ___32.7__ -mmHg 35.0 45.0 pO2 ___70.5__ -mmHg 69.0 116 HCO3- ___18.7__ -mmol/L 22.0 26.0 ABE ___-6.1__ -mmol/L -2.0 2.0 tHb ___11.3__ -g/dL 12.0 18.0 O2Hb ___95.9__ -% COHb ____1.5__ -% 0.0 1.5 MetHb ____0.0__ -% 0.4 1.5 sO2 ___95.6__ -% FIO2 ___60.0__ -% PEEP ____6.0__ -cmH2O Set_RR 20 -b/min Vt __480.0__ -L Drawn By MK - Date/Time Notified____ 05:04:00 -_ Oxygen Device 1 VENTILATOR - K+ ____3.1__ -mmol/L 3.5 5.0 tO2 ___15.0__ -Vol% [facility] test _Positive -
[2017-03-09] MEDS: Norepineph 8,000 mCg/250 mL NS 8,000 MCG in IV Premix 1 EACH IV PRN (06:15)
[2017-03-09] MEDS ORDERED: Potassium Phos (mMol) Inj 15 MMOL in Dextrose 5% 250 ML IV ONE (06:15)
[2017-03-09] MEDS: Dextrose 5% 0.45% NaCl 1,000 ML IV SCH ×3 (06:32→19:47)
[2017-03-09] MEDS: fentaNYL 2,500 mCg/250 mL 2,500 MCG in IV Premix 1 EACH IV PRN ×2 (06:42→20:19)
[2017-03-09] MEDS ORDERED: Furosemide 10 mg/mL 4 mL Inj IVPUSH ONE (08:05)
[2017-03-09] MEDS: LacriLube S.O.P. 3.5 Gm Ophthalmic Ointment BOTH_EYES SCH ×2 (08:12→19:47)
[2017-03-09] MEDS: Pantoprazole 4 mg/mL 10 mL Inj IVPUSH SCH ×2 (08:12→16:07)
[2017-03-09] MEDS: Cisatracurium 200,000 mCg/100 mL NS IV SCH ×2 (08:12)
--- NOTE | 2017-03-09 11:20 | NUR ---
NUTRITION FOLLOW-UP ASSESS: Pt is a 51 YO female admitted to CCU following cardiac arrest. The cause of arrest is unknown but is concerning for opiate overdose with Suboxone and Percocet/oxycodone. She remains currently intubated and sedated, NPO x 3 D. Overnight patient was stable, maxed out on Versed, and also has high rates of fentanyl and propofol. Per discussion with , there appears to be a rhythm problem that seems to be genetic, related to a prolonged QT syndrome. She is being treated for aspiration pneumonia; rewarming has been completed. Order received to advance enteral feeding today. PMHX: HTN, PE, splenic cyst, alcohol abuse, chronic pain with opiate use, PE's, hepatic vein thrombosis. LABS: Reviewed. Chloride 111, CO2 17, Glu 106, Ca 8.1, Phos 2.2, ALT 71, PAB 15, Procalcitonin 0.36. MEDS:Reviewed. Lasix, norepi and propofol titrating down, fentanyl, versed, midazolam. GI: No BM reported. SKIN: No pressure injuries, per Catering Server. WT: 101,9 kg, BMI 36.0 kg/m2, admit wt 93kg, IBW 59.1kg DIET: NPO. ENTERAL FEEDING: Jevity 1.5, trophic rate 10 ml/hr. EST. NEEDS: VENT/BMI Kcals: 1860-2050kcal/day (20-22kcal/kg) Pro: 90-105g/day (1.5-1.8g/kg IBW) Fluids: ~2350ml/day (25ml/kg) NUTRITION DIAGNOSIS: 1) Inadequate oral intake related to decreased ability to consume sufficient energy as evidenced by current NPO status - IMPROVED WITH ENTERAL FEEDING. NUTRITION INTERVENTION: 1) Order received to advance enteral feeding as follows. Advance Jevity 1.5 to 20 mL/hr. Once tolerance established, recommend advance 10 mL every 6 hr. to goal rate 50ml/hr to provide 1650 kcal, 70 g pro (77% pro needs). 2) Will addjust goal rate based on daily propofol rate. Propofol is titrating down today; will advance goal rate tomorrow in the event propofol titrated off. 4) Will also add 3 packets [employer] liquid protein tomorrow once tolerance established to meet approx. protein needs. MONITOR / EVAL: NPO/vent, enteral feeding advance / tolerance, wt, GI, labs, POC, nutrition status. Will continue to monitor per high nutrition risk guidelines. Addendum: 03/10/17 at [address] Enteral feeding on hold today due to emesis last night. Will follow up to monitor restart / advance / tolerance per high nutrition risk guidelines.
--- NOTE | 2017-03-09 11:48 | PROG NOTE ---
[address] [address] PROGRESS NOTE PATIENT: ERIC WESLEY : 1965 MR#: [id number] ADMIT: 03/06/2017 JOB ID: [id number] DATE: 03/09/2017 PULMONARY CRITICAL CARE FOLLOW UP NOTE: PROBLEMS: 1. Polysubstance abuse. 2. Alcohol abuse. 3. Agitated altered mental status. 4. Status post cardiac arrest. 5. Aspiration pneumonitis. SUBJECTIVE: None. OBJECTIVE: Temperature 37.3. Pulse 52-63. Respiratory rate 20 with ventilator set at 20. Blood pressure 129/73 with a MAP of 91. O2 sat on FiO2 of 50%, PEEP of 5, is 97%. I and O shows 7.4 L in, 2.4 L out. General appearance: Sedated on ventilator. Eyes: Conjunctivae are pink. Some chemosis present. Pupils 1-2 mm. Nose and throat could not be examined. Chest: Fair breath sounds bilaterally. Coarse crackles throughout both lungs, maybe a bit more so on the right. Heart: Regular rhythm. Heart tones normal. Abdomen is soft. Nondistended. Quiet. Extremities: No pretibial edema. Hands and feet warm. Skin intact without rashes. LABORATORY DATA: Shows a white count of 22,600 with 88 polymorphonuclears, no bands, 7 lymphocytes. Hemoglobin 11.9, slowly decreasing. Platelet count 294,000, relatively stable. Sodium 141, potassium 3.6, chloride 111, CO2 17, BUN 5, creatinine 0.5, glucose 106. Calcium is 8.1 with an albumin of 2.9. Phosphorus mildly low at 2.2, lower limits of normal being 2.5 mg/dL. Magnesium low-normal at 1.7. Total bilirubin 0.6. AST normal at 38. ALT mildly elevated at 71 though decreasing. Alkaline phosphatase normal. Total protein 5.9, pre-albumin low at 15. Procalcitonin mildly elevated at 0.36. Blood cultures drawn today are pending. Sputum shows moderate polys. A few mixed yvonne. Arterial blood gases on FiO2 of 60%, PEEP of 6, rate of 20 and tidal volume of 480 shows a pO2 of 70, pCO2 of 32, pH 7.36. ASSESSMENT: 1. Cardiac arrest. Likely due to medications. However, we are dealing with a prolonged QT interval. Possibly congenital with mother dying in her early age and a sister with an intracardiac device. In any case, however, there is a substantial substance abuse, both opiates and alcohol. Currently on the hypothermia protocol. Heavily sedated or else she gets quite agitated. Actually her temperature is doing rather well as she enters the 24-48 hour interval where normothermia assumes importance. I think we can start to back off the norepinephrine currently running at 0.15 mcg/kg per minute seeking to maintain her MAP 80, maybe 75, as it is unclear that she had an arrest for more than a minute or so. 2. Aspiration pneumonitis. Likely causing our problem with oxygenation. She is doing reasonably well though still requiring relatively high concentrations of oxygen to maintain adequate pO2s. Only running pO2 of 70 with FiO2 of 0.6 and PEEP of 6. 3. Substance abuse. Likely has played a role here. She was extremely agitated at the time of evaluation in the emergency department. Not sure whether this represents a withdrawal syndrome or a sympathomimetic toxidrome. In any case, that is under control for the moment. PLAN: 1. Decrease norepinephrine aiming for a MAP of 75-80. 2. Decrease sedation to see if we can get a better evaluation of the patient's underlying neurologic status. Situation discussed with primary care ICU team. TIME SPENT: In critical care 55 minutes.
--- NOTE | 2017-03-09 14:25 | DRSVH ---
PROCEDURE: X-RAY CHEST ONE VIEW, PORTABLE ([id number]) INDICATIONS: intubated TECHNIQUE: One view of the chest was acquired. COMPARISON: [facility], CR, XR CHEST 1VW (PORTABLE), 03/08/2017, 5:05. FINDINGS: Surgical changes and devices: Stable position ETT, nasogastric tube and right IJ CVL. Lungs and pleura: Diffuse, widespread bilateral pulmonary interstitial and air space opacities are p resent increased from prior examination. Small pleural effusions are likely present. No pneumothora x. Mediastinum: Mediastinal contours appear normal. Heart size is enlarged. Bones and chest wall: No suspicious bony lesions. Overlying soft tissues appear unremarkable. IMPRESSION: 1. Increasing pulmonary edema and/or diffuse bilateral pneumonia. Dictated by: Long Lynch [facility] Interpreted: Sheela Garcia MD on 03/09/2017 at 9:39 Approved by: Sheela Garcia M.D. on 03/09/2017 at 14:24
--- NOTE | 2017-03-09 17:44 | NUR ---
Social Work Note: Initial Assessment Data& Assessment: EMR reviewed. Pt remains on the vent. FAIRING MAN met with pt family at bedside to collect initial assessment information, SW role explained. Discharge Planning Checklist provided. Katy Gatica is a 51 year old female admitted on 03/06/2017 for cardiac arrest. Pt has [employer] insurance coverage and sees Josemanuel Charles MD for primary care. Pt lives in [place] with her spouse and is independent at baseline with all ADL's. Pt has no DME needs and does not have HH or SNF hx. Pt does not have LTC insurance or VA benefits. FAIRING MAN to follow up with pt regarding DPOA/AD paperwork and ETOH use to offer resources pending MD order. Pt family denies any needs at this time. FAIRING MAN to continue to follow for pt needs and MD orders. Plan: Pt remains on the vent. Anticipating discharge home when medically ready pending medical progression and ambulation abilities at time of discharge. Pt family denies any needs at this time. FAIRING MAN to continue to follow for pt needs and MD orders. MAVIS Regalado Addendum: 03/09/17 at 1748 by KAVON CERVANTES Amended: Links added.
--- NOTE | 2017-03-09 17:54 | PCM.PNMED ---
Subjective Date of Service Mar 09, 2017 Subjective Patient is doing well. She is on pressors to maintain her map above 80 and currently is a 89. Nursing states that the patient is well sedated on Versed, propofol, and fentanyl. Exam Vital Signs Vital Sign - Last Date Time Temp Pulse Resp B/P Pulse Ox O2 Delivery O2 Flow Rate FiO2 03/09/17 16:00 55 124/72 100 50 03/09/17 08:00 36.8 20 Mechanical Ventilator Intake and Output 03/08/17 03/08/17 03/09/17 Cumulative From/Thru 15:00 23:00 07:00 03/06/17 15:58 - 03/09/17 06:26 Intake Total 1639 ml 2458 ml 99838 ml Output Total 1520 ml 2025 ml 7250 ml Balance 119 ml 433 ml 06005 ml Intake IV Total 1639 ml 2149 ml 38357 ml Tube Feeding 129 ml 129 ml Tube Irrigant 180 ml 180 ml Output Urine Total 1420 ml 2025 ml 6825 ml Gastric Drainage Total 100 ml 425 ml Exam General: Sedated HEENT: Pupils were equally round ; ET tube in place Lymph: No lymphadenopathy Cardio: Regular rate and rhythm no murmurs Respiratory: CTA bilaterally with crackles Abdomen: Soft, positive bowel sounds Extremities: No edema Psych: Sedated Neuro: Sedated Skin: No rash IVs and Medications Medications Reviewed: Medications were reviewed in detail Lab and Diagnostics Result Diagram: 03/09/17 0310 03/09/17 0310 X-Rays, CTs and MRIs Chest x-ray IMPRESSION: Tip of endotracheal tube is 1 cm above the benja, and should be pulled back 3-4 cm. Dictated by: Giovany Modi M.D. on 03/06/2017 at 15:[address] IMPRESSION: No acute intracranial abnormality is not identified on this CT without contrast. Dictated by: Ric Bobby M.D. on 03/06/2017 at 16:27 CTA chest 1. No acute pulmonary embolus. 2. Dependent air space opacities throughout the lungs suspicious for aspiration in the setting of recent cardiac arrest. 3. Bilateral, displaced anterior rib fractures presumably secondary to recent CPR. Dictated by: Sheela Garcia M.D. on 03/06/2017 at 16:[address] 1. No visualized fracture. 2. Pulmonary opacities bilaterally. Please see CT Chest 03/06/17 report for further details. Dictated by: Leticia Maza M.D. on 03/06/2017 at 15:[address] 1. Pulmonary opacities, partially visualized, possibly related to air space disease such as pneumonia or aspiration. 2. Air in the bladder, possibly related to antoine insertion. Other etiologies including infection cannot be excluded. 3. Bilateral rib fractures. Dictated by: Leticia Maza M.D. on 03/06/2017 at 15:59 Chest x-ray IMPRESSION: Central line in good position from a radiographic point of view. No radiographic complication is seen. Other tubes and lines are appropriate. Lungs are clear. Dictated by: Ric Bobby M.D. on 03/06/2017 at 17:51 12-lead ECG EKG 15:46: Prolonged QT with a possible ectopic atrial rhythm; Dr. Xiong reviewed and stated no STEMI Assessment & Plan 51-year-old female history hypertension, multiple pulmonary embolism and hepatic vein thrombosis, and alcohol abuse on chronic opioids and now Suboxone as of today who presents emergency department following a cardiac arrest. Currently cause of arrest is unknown but is concerning for opiate overdose with Suboxone and Percocet/oxycodone. Neurological: Patient is currently sedated and plan large amounts of sedatives including Versed, propofol, and fentanyl. Would like to get a good sense of her neurologic status and we will back off of the propofol and Versed, and we will start titrating down the fentanyl. Cardio: Family history is very suggestive of a torsades arrest. Other etiologies could be due to her drug history including Suboxone and overdose on Percocet. Could also be a possible connection to methamphetamine use, although at the moment this is unsubstantiated. A refresher, patient's ejection fraction was 35-40% with global hypokinesis and the left ventricle. May consider repeating if patient does not make further progress. Respiratory: Blood gas stable today with the patient borderline hypoxic. She remains on FiO2 of 0.6 and respiratory rate of 20, PEEP of 6. Attempted to wean down FiO2 this is been difficult, likely due to the amount of aspirate material during arrest. Abdomen: Prophylactic with famotidine; LFT's normalizing. Patient is on trickle feeds Infectious: White count has worsened since warming, which is wholly unexpected although pro calcitonin is also elevated at 0.36. This is all likely due to aspiration pneumonia which is being covered by Zosyn. We will continue Zosyn. Blood cultures obtained this morning. Repeat chest x-ray tomorrow. Renal: Resolving metabolic acidosis. Lines: Patient has a central line that has been signed off by radiology. Art line placed previously has failed. Disposition: Patient here for at least 3-5 days. GI Prophylaxis: H2 pierce VTE Mechanical Devices: Intermittant Pneumatic CD Resuscitation Status: CPR: Attempt Resuscitation Time spent 35 minutes Attending Statement I interviewed and examined the patient on rounds today. I agree with the assessment and plan as stated above. Onesimo Cheek DO Mar 09, 2017 16:19 Jean Ortiz MD Mar 10, 2017 14:22
--- NOTE | 2017-03-09 18:32 | NUR ---
Sedation vacation/fever Attempted to reduce sedation to see how pt tolerated it. Titrated propfol down to 15 and fentanyl down to 100 (see CCU flow sheet). Pt started getting shaky, increased RR from 35 to 40, HR SR 70s, temp started rising from 36.8 to 37.3. Not responding to sternal rub other than some possible eyelid twitching. No purposeful movement at this time. Md notified, put back on previous sedation. Temp continued to increase up to 38.5 gave IV tylenol 1g, placed ice packs in axilla as well as cooling pads still working and temp dropped back down to normothermia. Frequent oral care, suctioning and q2h turns continue. Pt's family at bedside most of the shift.
[2017-03-10] VITALS (12 sets, daily range): BP systolic 112–136; BP diastolic 56–90; PULSE 53–83; RESP 20–26; O2SAT 91–99
[2017-03-10] MEDS: Piperacillin-Tazo 3.375 Gm Inj 3.375 GM in Dextrose 5% Minibag Plus 50 ML IV SCH ×3 (01:20→17:37)
[2017-03-10] MEDS: Chlorhexidine 0.12% 15 mL Oral Solution MT SCH ×6 (01:20→20:57)
[2017-03-10] MEDS: Dextrose 5% 0.45% NaCl 1,000 ML IV SCH (03:49)
[2017-03-10 04:12] LABS: Mean Corpuscular Hemoglobin 35.2 pg (27.0-35.0); Mean Corpuscular Volume 103.1 fL (81-100); Platelet Count 311 bil/L (150-400)
[2017-03-10 04:30] LABS: BASOPHILS % (AUTO) 1 % (0-3); EOSINOPHILS % (AUTO) 2 % (0-5); MONOCYTES % (AUTO) 4 % (4-12); NEUTROPHILS % (AUTO) 80 % (40-74)
[2017-03-10 04:55] LABS: Magnesium 1.6 mg/dL (1.6-2.6); Phosphorus 2.5 mg/dL (2.5-4.9)
--- NOTE | 2017-03-10 04:56 | ABG ---
DateTimeAnalyzed 04:48:01 -_ pH ____7.391 - 7.350 7.450 pCO2 ___36.8__ -mmHg 35.0 45.0 pO2 ___67.1__ -mmHg 69.0 116 HCO3- ___22.4__ -mmol/L 22.0 26.0 ABE ___-2.3__ -mmol/L -2.0 2.0 tHb ___11.8__ -g/dL 12.0 18.0 O2Hb ___92.2__ -% COHb ____1.8__ -% 0.0 1.5 MetHb ____0.2__ -% 0.4 1.5 sO2 ___94.0__ -% FIO2 ___50.0__ -% PEEP ____5.0__ -cmH2O Set_RR 20 -b/min Vt __480.0__ -L Drawn By MK - Date/Time Notified____ 04:56:00 -_ Spontaneous_RR 20 -b/min Oxygen Device 1 VENTILATOR - K+ ____3.2__ -mmol/L 3.5 5.0 tO2 ___15.4__ -Vol% [facility] test _Positive -
[2017-03-10] MEDS: MIDAZOLAM IV SCH ×2 (05:12→19:58)
[2017-03-10] MEDS: SODIUM CHLORIDE 0.9% IV SCH ×2 (05:12→19:58)
--- NOTE | 2017-03-10 06:40 | NUR ---
Resp/Tube feeds: Pt had been tolerating tube feedings with residuals of 50mls, 80mls, and 180mls. Tube feed was stopped around 0430 after secretions coming ETT looked like tube feeds. Pt also had vomited tube feeds. NG was placed to low continuous suction. RT and RN continued to do frequent suctioning and continue to get mod to large amounts of craig to cream colored sputum. pt also was double stacking breaths and using abd accessory muscle to breath this was also noted with a steady raise in temp. Ice packs were applied to under arm and cold wash cloth to forehead and back of neck.
[2017-03-10] MEDS: Furosemide 10 mg/mL 2 mL Inj IVPUSH SCH (08:29)
[2017-03-10] MEDS: Potassium Chloride 20 mEq SR Tablet NGTUBE SCH ×2 (08:29→20:57)
[2017-03-10] MEDS: Pantoprazole 4 mg/mL 10 mL Inj IVPUSH SCH ×2 (08:29→17:37)
[2017-03-10] MEDS: Norepineph 8,000 mCg/250 mL NS 8,000 MCG in IV Premix 1 EACH IV PRN (08:30)
[2017-03-10] MEDS: LacriLube S.O.P. 3.5 Gm Ophthalmic Ointment BOTH_EYES SCH ×2 (08:31→20:58)
[2017-03-10] MEDS ORDERED: Acetaminophen IV 1,000 MG in IV Premix 1 EACH IV PRN (08:50)
--- NOTE | 2017-03-10 09:41 | DRSVH ---
PROCEDURE: X-RAY CHEST ONE VIEW, PORTABLE ([id number]) INDICATIONS: intubated TECHNIQUE: One view of the chest was acquired. COMPARISON: [facility], CR, XR CHEST 1VW (PORTABLE), 03/09/2017, 4:32. [facility], CR, XR CHEST 1VW (PORTABLE), 03/08/2017, 5:05. [facility], CR, XR CHEST 1VW (KIMBERLY BLE), 03/07/2017, 11:56. [facility], CR, XR CHEST 1VW (PORTABLE), 03/06/2017, 17:16. FINDINGS: Surgical changes and devices: Stable ET tube, enteric tube, and right IJ CVC. Lungs and pleura: Improving now small pleural effusions with bibasilar atelectasis. Improving bilate ral and mostly perihilar right greater than left pulmonary opacities consistent with improving infect ion. Mediastinum: Mediastinal contours appear normal. Heart size is normal. Bones and chest wall: No suspicious bony lesions. Overlying soft tissues appear unremarkable. IMPRESSION: Improving bilateral pulmonary opacities and pleural effusions. Stable support devices. Dictated by: Bubba Muñoz M.D. on 03/10/2017 at 9:37 Approved by: Bubba Muñoz M.D. on 03/10/2017 at 9:39
--- NOTE | 2017-03-10 12:05 | NUR ---
Resp/TF/Cardiac Vent settings remain the same: 50%, 5, 20, 480; transient desat this morning to mid 80s, suctioning light brown from ETT. NG continues to be to LCWS. 1200 assessment scant secretions from ETT. TF continue on hold at this time. Norepi weaned off this morning, MAPs in high-60s.
--- NOTE | 2017-03-10 14:18 | PCM.PNMED ---
Subjective Date of Service Mar 10, 2017 Subjective 51-year-old woman with history of alcohol and opioid abuse presents with cardiac arrest, complicated by toxic encephalopathy and pneumonia. The patient remains sedated on the ventilator. Hemodynamics are stable on norepinephrine. FiO2 remains 50%. Exam Vital Signs Vital Sign - Last Date Time Temp Pulse Resp B/P Pulse Ox O2 Delivery O2 Flow Rate FiO2 03/10/17 12:03 Ventilator 03/10/17 12:03 37.4 80 23 118/56 97 50 Intake and Output 03/09/17 03/09/17 03/10/17 Cumulative From/Thru 15:00 23:00 07:00 03/06/17 15:58 - 03/10/17 05:55 Intake Total 2986 ml 2613 ml 51929 ml Output Total 5100 ml 950 ml 73812 ml Balance -2114 ml 1663 ml 02972 ml Intake IV Total 2986 ml 2208 ml 90065 ml Tube Feeding 365 ml 494 ml Tube Irrigant 40 ml 220 ml Output Urine Total 5100 ml 825 ml 18748 ml Gastric Drainage Total 125 ml 550 ml Exam General: Obese woman sedated on ventilator HEENT: sclerae anicteric, oral mucosa moist Chest: clear to auscultation anterolaterally Cardiac: S1S2, distant, no apparent murmur Abdomen: BS present, soft Extremities: No pitting edema Neuro: Sedated, pupils reactive IVs and Medications Medications Reviewed: Medications were reviewed in detail Lab and Diagnostics Result Diagram: 03/10/17 0405 03/10/17 0405 X-Rays, CTs and MRIs Chest x-ray IMPRESSION: Tip of endotracheal tube is 1 cm above the benja, and should be pulled back 3-4 cm. Dictated by: Giovany Modi M.D. on 03/06/2017 at 15:[address] IMPRESSION: No acute intracranial abnormality is not identified on this CT without contrast. Dictated by: Ric Bobby M.D. on 03/06/2017 at 16:27 CTA chest 1. No acute pulmonary embolus. 2. Dependent air space opacities throughout the lungs suspicious for aspiration in the setting of recent cardiac arrest. 3. Bilateral, displaced anterior rib fractures presumably secondary to recent CPR. Dictated by: Sheela Garcia M.D. on 03/06/2017 at 16:[address] 1. No visualized fracture. 2. Pulmonary opacities bilaterally. Please see CT Chest 03/06/17 report for further details. Dictated by: Leticia Maza M.D. on 03/06/2017 at 15:[address] 1. Pulmonary opacities, partially visualized, possibly related to air space disease such as pneumonia or aspiration. 2. Air in the bladder, possibly related to antoine insertion. Other etiologies including infection cannot be excluded. 3. Bilateral rib fractures. Dictated by: Leticia Maza M.D. on 03/06/2017 at 15:59 Chest x-ray IMPRESSION: Central line in good position from a radiographic point of view. No radiographic complication is seen. Other tubes and lines are appropriate. Lungs are clear. Dictated by: Ric Bobby M.D. on 03/06/2017 at 17:51 ROCEDURE: X-RAY CHEST ONE VIEW, PORTABLE ([id number]) IMPRESSION: Improving bilateral pulmonary opacities and pleural effusions. Stable support devices. Dictated by: Bubba Muñoz M.D. on 03/10/2017 at 9:37 . 12-lead ECG EKG 15:46: Prolonged QT with a possible ectopic atrial rhythm; Dr. Xiong reviewed and stated no STEMI Cardiac Echo Impressions Echocardiogram Report Name: ERIC WESLEY MStudy Date: 03/2017 Interpretation Summary The left ventricle is normal in size. There is mild concentric left ventricular hypertrophy. The ejection fraction is estimated to be 35-40%. There is moderate global hypokinesis of the left ventricle. There are no focal wall motion abnormalities. The right ventricle grossly appears normal in size with probable normal systolic function. Right ventricular systolic pressure is estimated to be 18 mmHg plus the clinically estimated CVP which cannot be estimated on this exam. Inspiratory collapse cannot be assessed because of mechanical ventilation, thus CVP cannot be estimated.. No other echocardiographic abnormalities seen. . 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 Currently cause of arrest is unknown but family history is concerning for prolonged QT syndrome. Neurological: Patient is currently sedated and plan large amounts of sedatives including Versed, propofol, and fentanyl. - start titrating down the fentanyl. Cardio: Family history is very suggestive of prolonged QT syndrome. Other etiologies could be due to respiratory arrest due to Suboxone and overdose on Percocet. Could also be a possible connection to methamphetamine use, although at the moment this is unsubstantiated. Patient's ejection fraction was 35-40% with global hypokinesis and the left ventricle. - Continue to wean norepinephrine as tolerated Respiratory: Bilateral infiltrates consistent with aspiration pneumonia. Blood gas stable today with the patient borderline hypoxic. She remains on FiO2 of 0.5 and respiratory rate of 20, PEEP of 6. - Continue to treat aspiration pneumonia; Zosyn - Wean as tolerated - Pulmonary service to manage path to extubation Abdomen: Prophylactic with famotidine; LFT's normalizing. - Continue trickle feeds Infectious: White count was 14.9 on admission, peaked at 20.6 and is now improving. Pro calcitonin is also elevated at 0.36, 0.46. Likely due to aspiration pneumonia, covered by Zosyn. Blood cultures have been negative. - We will continue Zosyn. Renal: Creatinine has been stable. Urine output adequate - Continue to monitor Lines: Patient has a central line that has been signed off by radiology. Art line placed previously has failed. Disposition: Patient here for at least 3-5 days. GI Prophylaxis: H2 pierce VTE Mechanical Devices: Intermittant Pneumatic CD Resuscitation Status: CPR: Attempt Resuscitation Time spent 35 minutes Jean Ortiz MD Mar 10, 2017 14:18
--- NOTE | 2017-03-10 23:52 | NUR ---
ECG/Tremors: Pt has had saw tooth rhythmic pattern through out ECG since start of shift. Pt also was breathing at a rate of 28-34 and double stacking breaths on the vent and desat down to 89-91%. RT notified and into see pt suctioning done and propofol bolus given and rate increased to 30mcg/kg/min. pt also had temp of 37.8. After bolus the saw tooth pattern had stopped but returned approx 20mins later, but not as big. Resp rate dropped to 20 and pt was being controlled by vent. Pt temp continued to steadily drop at 2130 temp was 36.8. When assessing pt slight tremor was noted to bilateral arms and legs and blood sugar was 56. 1 AMP of D50 was given and blood sugar was rechecked at 24plzd=184 and 41lvjn=267. Thinking pt might be shivering due to cooling pads being and cold to touch the cooling machine was stopped and fluid drained from pads. 30mins later tremor still visible to arm and legs and in ECG. Another propofol bolus was given and tremors stopped. Dr Parsons was informed of blood sugar and seizure activity. No new orders received. Propofol was increased to 45mcg/kg/min and no signs of tremors have been seen. pt continues to be monitored closely.
[2017-03-11] VITALS (15 sets, daily range): BP systolic 95–133; BP diastolic 46–80; PULSE 58–82; RESP 20–24; O2SAT 92–99
[2017-03-11] MEDS: Piperacillin-Tazo 3.375 Gm Inj 3.375 GM in Dextrose 5% Minibag Plus 50 ML IV SCH ×3 (00:48→15:57)
[2017-03-11] MEDS: Chlorhexidine 0.12% 15 mL Oral Solution MT SCH ×7 (00:48→23:16)
[2017-03-11] MEDS ORDERED: Dextrose 10% 250 ML IV ONE ×2 (01:26→07:51)
--- NOTE | 2017-03-11 06:43 | NUR ---
blood sugar/sedation: Blood sugars were monitored closely through out the night and pt did receive additional glucose during the night. propofol was increased along with versed to help control tremors.
[2017-03-11] MEDS: Potassium Chloride 20 mEq SR Tablet NGTUBE SCH (08:30)
[2017-03-11] MEDS: Pantoprazole 4 mg/mL 10 mL Inj IVPUSH SCH ×2 (08:32→17:03)
[2017-03-11] MEDS: LacriLube S.O.P. 3.5 Gm Ophthalmic Ointment BOTH_EYES SCH ×2 (08:33→20:52)
[2017-03-11 09:13] LABS: BASOPHILS % (AUTO) 0.3 % (0-3); EOSINOPHILS % (AUTO) 1.7 % (0-5); MONOCYTES % (AUTO) 12.2 % (4-12); Mean Corpuscular Hemoglobin 34.5 pg (27.0-35.0); Mean Corpuscular Volume 100.9 fL (81-100); Platelet Count 328 bil/L (150-400)
[2017-03-11] MEDS: Furosemide 10 mg/mL 2 mL Inj IVPUSH SCH (09:29)
[2017-03-11 09:31] LABS: INR 1.06 ratio
[2017-03-11 09:52] LABS: Magnesium 1.5 mg/dL (1.6-2.6)
[2017-03-11] MEDS ORDERED: Dexmedetomidine Inj 400 MCG in 0.9% Sodium Chloride 100 ML IV SCH (10:26)
[2017-03-11] MEDS ORDERED: Magnesium Sulf 2 Gm/50mL Water 2 GM in IV Premix 1 EACH IV ONE (10:30)
[2017-03-11] MEDS ORDERED: Albuterol-Ipratropium 3 mL Inhalation Solution NEB PRN (10:30)
[2017-03-11] MEDS ORDERED: KCl 20 mEq/100 mL(CENTRAL) 20 MEQ in IV Premix 1 EACH IV ONE (10:30)
[2017-03-11] MEDS ORDERED: Dexmedetomidine 400 mCg/100 mL 400 MCG in IV Premix 1 EACH IV SCH (10:48)
[2017-03-11] MEDS ORDERED: Dextrose 10% 1,000 ML IV SCH (11:40)
--- NOTE | 2017-03-11 12:27 | PCM.PNMED ---
Subjective Date of Service Mar 11, 2017 Subjective Patient is essentially in the same condition she has been for the last 3 days. Nursing questions overnight about whether the patient was seizing and increased amounts of propofol were given until the shaking was subdued. Exam Vital Signs Vital Sign - Last Date Time Temp Pulse Resp B/P Pulse Ox O2 Delivery O2 Flow Rate FiO2 03/11/17 12:08 37.3 80 20 102/46 95 Mechanical Ventilator 50 Intake and Output 03/10/17 03/10/17 03/11/17 Cumulative From/Thru 15:00 23:00 07:00 03/06/17 15:58 - 03/11/17 06:07 Intake Total 752 ml 808 ml 17128 ml Output Total 3100 ml 1250 ml 35025 ml Balance -2348 ml -442 ml 9733 ml Intake IV Total 752 ml 808 ml 56538 ml Tube Feeding 494 ml Tube Irrigant 220 ml Output Urine Total 2650 ml 900 ml 92083 ml Gastric Drainage Total 450 ml 350 ml 1350 ml # Bowel Movements 0 0 Exam General: Sedated HEENT: Pupils were equally round and reactive ; ET tube in place Lymph: No lymphadenopathy Cardio: Regular rate and rhythm no murmurs Respiratory: CTA bilaterally with crackles Abdomen: Soft, negative for bowel sounds Extremities: No edema Psych: Sedated Neuro: Sedated Skin: No rash IVs and Medications Medications Reviewed: Medications were reviewed in detail Lab and Diagnostics Result Diagram: 03/11/17 0840 03/11/17 0840 X-Rays, CTs and MRIs Chest x-ray IMPRESSION: Tip of endotracheal tube is 1 cm above the benja, and should be pulled back 3-4 cm. Dictated by: Giovany Modi M.D. on 03/06/2017 at 15:[address] IMPRESSION: No acute intracranial abnormality is not identified on this CT without contrast. Dictated by: Ric Bobby M.D. on 03/06/2017 at 16:27 CTA chest 1. No acute pulmonary embolus. 2. Dependent air space opacities throughout the lungs suspicious for aspiration in the setting of recent cardiac arrest. 3. Bilateral, displaced anterior rib fractures presumably secondary to recent CPR. Dictated by: Sheela Garcia M.D. on 03/06/2017 at 16:[address] 1. No visualized fracture. 2. Pulmonary opacities bilaterally. Please see CT Chest 03/06/17 report for further details. Dictated by: Leticia Maza M.D. on 03/06/2017 at 15:[address] 1. Pulmonary opacities, partially visualized, possibly related to air space disease such as pneumonia or aspiration. 2. Air in the bladder, possibly related to antoine insertion. Other etiologies including infection cannot be excluded. 3. Bilateral rib fractures. Dictated by: Leticia Maza M.D. on 03/06/2017 at 15:59 Chest x-ray IMPRESSION: Central line in good position from a radiographic point of view. No radiographic complication is seen. Other tubes and lines are appropriate. Lungs are clear. Dictated by: Ric Bobby M.D. on 03/06/2017 at 17:51 ROCEDURE: X-RAY CHEST ONE VIEW, PORTABLE ([id number]) IMPRESSION: Improving bilateral pulmonary opacities and pleural effusions. Stable support devices. Dictated by: Bubba Muñoz M.D. on 03/10/2017 at 9:37 . 12-lead ECG EKG 15:46: Prolonged QT with a possible ectopic atrial rhythm; Dr. Xiong reviewed and stated no STEMI Cardiac Echo Impressions Echocardiogram Report Name: ERIC WSELEY MStudy Date: 03/2017 Interpretation Summary The left ventricle is normal in size. There is mild concentric left ventricular hypertrophy. The ejection fraction is estimated to be 35-40%. There is moderate global hypokinesis of the left ventricle. There are no focal wall motion abnormalities. The right ventricle grossly appears normal in size with probable normal systolic function. Right ventricular systolic pressure is estimated to be 18 mmHg plus the clinically estimated CVP which cannot be estimated on this exam. Inspiratory collapse cannot be assessed because of mechanical ventilation, thus CVP cannot be estimated.. No other echocardiographic abnormalities seen. . 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 Currently cause of arrest is unknown but family history is concerning for prolonged QT syndrome. Neurological: Medication induced encephalopathy versus anoxic brain injury; patient has made no neurological progress of the last 4 days, and reports that patient gets agitated when sedation is lightened. Last night there is concern the patient's having seizures although on examination this morning hears more to be chills. We wished to start the patient on Precedex and titrate down her sedation, however patient's prolonged QT. Today we plan to withdraw the propofol and increase the fentanyl, and maintain the Versed. If she remains sedated we will titrate down the fentanyl and Versed. - start titrating down propofol - EEG tomorrow - Pending sedation well reduce Versed as well. Cardio: Family history is very suggestive of prolonged QT syndrome. Other etiologies could be due to respiratory arrest due to Suboxone and overdose on Percocet. Could also be a possible connection to methamphetamine use, although at the moment this is unsubstantiated. Patient's ejection fraction was 35-40% with global hypokinesis and the left ventricle. - Continue to wean norepinephrine as tolerated; currently at 0.05 with map 65-75 Respiratory: Aspiration pneumonia with evidence on CT; Bilateral infiltrates consistent with aspiration pneumonia. FiO2 down to 0.45 and patient satting in the 90s. ABG this morning showed a mild hypoxia with a normal pH. - Continue to treat aspiration pneumonia; Zosyn - Wean as tolerated - Pulmonary service to manage path to extubation, and this will largely depend on her neurological status Abdomen: Prophylactic with famotidine; LFT's normalizing. - Continue trickle feeds - No bowel tones were heard - Relistor started Infectious: Aspiration pneumonia; Patient is responding to the antibiotics with a decreasing white count and Pro calcitonin. - We will continue Zosyn. Renal: Creatinine has been stable. Urine output adequate - Continue to monitor Lines: Patient has a central line that has been signed off by radiology. Art line placed previously has failed. Disposition: Patient here for at least 3-5 days. GI Prophylaxis: H2 pierce VTE Mechanical Devices: Intermittant Pneumatic CD Resuscitation Status: CPR: Attempt Resuscitation Time spent 45 minutes Attending Statement I examined the patient on rounds today. Attempting to wean sedatives and move toward extubation. I agree with the assessment and plan as stated above. Onesimo Cheek DO Mar 11, 2017 12:27 Jean Ortiz MD Mar 11, 2017 18:32
[2017-03-11] MEDS ORDERED: Methylnaltrexone 12 mg/0.6 mL Inj SUBQ ONE (12:45)
[2017-03-11] MEDS: fentaNYL 2,500 mCg/250 mL 2,500 MCG in IV Premix 1 EACH IV PRN (13:16)
--- NOTE | 2017-03-11 13:21 | PROG NOTE ---
[address] [address] PROGRESS NOTE PATIENT: ERIC WESLEY : 1965 MR#: [id number] ADMIT: 03/06/2017 JOB ID: [id number] DATE: 03/10/2017 PROBLEM: 1. Polysubstance abuse. 2. Alcohol abuse. 3. Agitated altered mental status. 4. Status post cardiac arrest. 5. Aspiration pneumonitis. 6. QT prolongation. SUBJECTIVE: None. OBJECTIVE: Temperature 37.4, though T-max is 37.8. Pulse 72-80. Respiratory rate 20-23, blood pressure 118/56. O2 sat on FiO2 50%, PEEP of 5 is 97%. I and O shows 5.4 L in, 7.1 L out. General appearance: No acute distress. Sedated on a ventilator. Eyes: Conjunctivae are pink. Pupils about 2 mm. Chest shows fairly good breath sounds. Left lung field is relatively clear. Right lung field has crackles in the lower half, both inspiratory and expiratory. The patient with spontaneous respirations; therefore, unable to obtain pulmonary mechanics. Peak pressure, however, in the low 20s. Heart: Regular rhythm. Heart tones seem normal. Abdomen soft. Nondistended. Quiet. Extremities: No pretibial edema. LABORATORY: Shows a white count of 16,100 down from 20,600 with moderate neutrophilia. Hemoglobin relatively stable at 11.3. Platelet count stable at 311,000. Sodium 143, potassium 3.5, chloride 111. CO2 is 21, BUN 6, creatinine 0.4. Lactic acid 1.3. Calcium 7.8 with albumin of 2.7. Phosphorus normal at 2.5. Magnesium low-normal at 1.6. Total bilirubin 0.9. AST 34, ALT minimally elevated at 49. Alkaline phos normal at 102. Procalcitonin relatively stable at 0.46. Repeat blood cultures at 24 hours showed no growth. Chest x-ray shows lessening of the opacities at the right and left base. Arterial blood gases on rate of 20, tidal volume of 480, FiO2 0.5 and a PEEP of 5, show pO2 of 67, pCO2 of 36, pH 7.39. ASSESSMENT: 1. Neurologically, the patient is still receiving Versed, propofol and fentanyl to control her behavior. Nursing reports that she gets agitated at times. Will continue to attempt to decrease sedation. Probably would try decreasing propofol as she seemed to do quite well with Versed, and with her opiate addiction, may be withdrawing from opiates. 2. Aspiration pneumonitis. Chest x-ray appears slightly better. Still hot weather with a quite wide (A-a DO2 gradient). Not making much progress in terms of better oxygenation. However, will continue to monitor fluids and continue to diurese. 3. Nutritional status. The patient currently receiving enteral nutrition. Tube feeding at a trophic rate. As tolerated we may be able to decrease that. See how she does. PLAN: 1. Continue current vent settings. 2. Try to taper sedatives as possible, possibly starting with propofol. 3. Continue diuresis with furosemide. Discussed the situation in detail with the patient's and daughter. Stressed the concern about her neurologic status. Certainly, she is not awaking though does require goodly doses of sedatives and opiates for control of what is described as an agitated behavior. May represent withdrawal syndromes. 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 Time spent so far in critical care 47 minutes.
--- NOTE | 2017-03-11 13:26 | PROG NOTE ---
[address] [address] PROGRESS NOTE PATIENT: ERIC WESLEY : 1965 MR#: [id number] ADMIT: 03/06/2017 JOB ID: [id number] DATE: 03/11/2017 PULMONARY CRITICAL CARE FOLLOWUP NOTE: PROBLEM: 1. Polysubstance abuse. 2. Status post cardiac arrest. 3. Aspiration pneumonitis. 4. Long QT interval. SUBJECTIVE: None. OBJECTIVE: Temperature 37.3. Pulse 72-80. Respiratory rate 20 with ventilator set at 20. Blood pressure 102/46. O2 sat on FiO2 of 50%, PEEP of 5 is 95%. I and O shows 3.3 L in, 4 L out. General appearance: Well developed, well nourished. Sedated, on mechanical ventilation. Eyes: Conjunctivae are pink. Pupils 1-2 mm. Chest: Fairly good breath sounds. Some scattered crackles. Some mild expiratory pulmonary adventitial sounds. Patient with spontaneous respirations and therefore unable to obtain pulmonary mechanics. However peak pressure with tidal volume of 480 is in the low 20s. Heart: Regular rhythm. Heart tones normal. Abdomen: Soft. Quiet. No apparent tenderness. Extremities: 1+ pretibial edema. LABORATORY DATA: Shows a white count of 14,500 with 67 polymorphonuclears, 18 lymphs, 12 monos, 1 eosinophil. Hemoglobin stable at 10.9. Platelet count stable at 320,000. Sodium 141, potassium 3.6 with the patient receiving supplemental potassium infusion, chloride 106, CO2 is 22, BUN 9, creatinine 0.39. Lactic acid 1.3. Calcium is 8.3 with an albumin of 2.8. Magnesium 1.5 with the patient to receive 2 g supplementation. Total bilirubin 0.7, AST 24, ALT 32, alkaline phos 101. ASSESSMENT: 1. Neurologic status. The patient remains quits quite sedated. Nurses report having to give pushes of propofol and occasionally Versed said to control agitated behavior. None particularly apparent at this time. Will continue to attempt to slowly taper sedatives. Seemed to me that Versed said was more effective than propofol. Nurses not sure that either one is particularly more effective than the other at this point. Therefore will try intermittently decreasing either one. Did consider adding Precedex but with the long QT interval that probably is not a good idea at this point. Not particularly waking up at this time. May need to repeat the CT of the head and possibly consider EEG for nonconvulsive status epilepticus in the morning. 2. Aspiration pneumonitis. Doing reasonably well. Oxygenation is fairly good. We can get gases today but saturation is doing reasonably well, with sats in the mid 90s on 45% to 50% O2. White cell count is coming down. I think the aspiration pneumonitis is under relatively good control. 3. Continuing to diurese the patient as she remains grossly overloaded at not quite 10 L positive. 4. I had a long discussion with the patient's . Concern is about her neurologic status. Remains sedated. Nurses continue to require high doses of sedation to keep her behavior under control. 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 Will continue to feel our way along and see how we do considering the above studies. Explained at this point we are unable to prognosticate about her ultimate neurologic state. PLAN: 1. Taper propofol and/or Versed as able. 2. Methylnaltrexone for intolerance of tube feeding. 3. DuoNeb 1 vial by nebulizer q.4 h. 4. Continue IV Zosyn. 5. Might consider repeat CT of the brain as well as a possible EEG for nonconvulsive status in the a.m. TIME: Time spent in critical care 60 minutes.
[2017-03-11 15:44] LABS: Magnesium 1.9 mg/dL (1.6-2.6)
[2017-03-11] MEDS: Albuterol-Ipratropium 3 mL Inhalation Solution NEB SCH ×4 (15:59→23:40)
[2017-03-11] MEDS: Acetaminophen IV 1,000 MG in IV Premix 1 EACH IV PRN ×2 (16:32→23:16)
[2017-03-11] MEDS ORDERED: KCl 40 mEq/100 mL Premix (K 3 - 3.7 & Creat < 2) IV ONE (16:40)
[2017-03-11] MEDS: Norepineph 8,000 mCg/250 mL NS 8,000 MCG in IV Premix 1 EACH IV PRN (17:38)
[2017-03-11] MEDS: Norepineph 8,000 mCg/250 mL NS 8,000 MCG in IV Premix 1 EACH IV SCH (17:50)
--- NOTE | 2017-03-11 20:08 | NUR ---
Blood glucose/temp/BP/electrolyte replacement/skin issues Low blood glucose this morning at 69 patient was given V bolus of D10 250 ml X1 per MD verbal order with blood glucose increased to 276 15min after infusion was completed. Following blood glucose between 75-80 - MD was made aware and ordered continues infusion of D10 at 25ml/h- blood glucose monitoring q 2h and glucose remained stable- please refer to CCU flow sheet for details. This evening patient developed a fever of 38.1. At the time SBP and MAP gradually started to decrease SBP to 85-90 and MAP 21-29-[id number] see CCU flow sheet. Consulted with MD patient was given a dose of 1gram IV Tylenol with temp decreasing only to 37.930min following med administration. Patient required levophed drip for BP support- BP/MAP normalized with drip titration MD aware. MD ordered blood culture this evening to follow up elevated temp. Change of ET tube secretions from clear to white and thin this morning to craig and moderately thick this afternoon- MD aware- no new orders received at the time. Magnesium and potassium replacement today per attending MD/Resident please see MAR for meds administrations ayaka on lab results. On initial assessment this morning found patient to have a large sheared/abraded blister on right medial buttock area with bleachable skin surrounding abraded, an irregular shape blister on left medial buttock also with bleachable surrounding skin. Both areas were covered with Mepilex dressings of appropriate sizes. This skin issued were not documented by previous shift/shifts. MD was made aware about this findings. Wound care follow up was ordered. Turning Q2 and PRN with good skin care- continue assessment.
[2017-03-11] MEDS: MIDAZOLAM IV SCH (22:05)
[2017-03-11] MEDS: SODIUM CHLORIDE 0.9% IV SCH (22:05)
[2017-03-12] VITALS (13 sets, daily range): BP systolic 108–158; BP diastolic 52–90; PULSE 78–88; RESP 18–20; O2SAT 95–99
[2017-03-12] MEDS: Piperacillin-Tazo 3.375 Gm Inj 3.375 GM in Dextrose 5% Minibag Plus 50 ML IV SCH ×3 (00:06→16:34)
[2017-03-12] MEDS ORDERED: KCl 40 mEq/100 mL Premix (K 3 - 3.7 & Creat < 2) IV ONE (01:45)
--- NOTE | 2017-03-12 01:59 | ABG ---
DateTimeAnalyzed 01:50:00 -_ pH ____7.435 - 7.350 7.450 pCO2 ___34.2__ -mmHg 35.0 45.0 pO2 ___53.4__ -mmHg 69.0 116 HCO3- ___22.6__ -mmol/L 22.0 26.0 ABE ___-0.8__ -mmol/L -2.0 2.0 tHb ___10.0__ -g/dL 12.0 18.0 O2Hb ___84.6__ -% COHb ____1.1__ -% 0.0 1.5 MetHb ____1.1__ -% 0.4 1.5 sO2 ___86.5__ -% FIO2 ___40.0__ -% PRVC 14 - PEEP ____5.0__ -cmH2O Vt __480.0__ -L Drawn By blf - Date/Time Notified____ 01:56:00 -_ Spontaneous_RR ___24.0__ -b/min Oxygen Device 1 VENTILATOR - Notified By blf - Notified Whom KELLY SWAN RN - B 758 -mmHg tO2 ___11.9__ -Vol% Eagle test _Positive -
--- NOTE | 2017-03-12 04:01 | NUR ---
Sedation / temp Able to titrate Propofol from 20mcgs/kg/min to 10, Versed remains at 2mg/hr, Fentanyl at 100mcgs/hr. Patient opens eyes to care, does not follow commands, minimal movement of extremities is noted. Patient febrile all shift. 38.1-38.6. First blood culture set by lab, second from central line. PRN Tylenol administered. Cool washcloths placed.
[2017-03-12] MEDS: Albuterol-Ipratropium 3 mL Inhalation Solution NEB SCH ×5 (04:15→20:32)
--- NOTE | 2017-03-12 05:26 | ABG ---
DateTimeAnalyzed 05:20:00 -_ pH ____7.466 - 7.350 7.450 pCO2 ___33.5__ -mmHg 35.0 45.0 pO2 ___69.0__ -mmHg 69.0 116 HCO3- ___23.8__ -mmol/L 22.0 26.0 ABE ____0.8__ -mmol/L -2.0 2.0 tHb ____9.6__ -g/dL 12.0 18.0 O2Hb ___91.4__ -% COHb ____1.2__ -% 0.0 1.5 MetHb ____0.8__ -% 0.4 1.5 sO2 ___93.3__ -% FIO2 ___50.0__ -% PRVC 20 - PEEP ____5.0__ -cmH2O Vt __480.0__ -L Drawn By blf - Date/Time Notified____ 05:26:00 -_ Spontaneous_RR ___20.0__ -b/min Oxygen Device 1 VENTILATOR - Notified By blf - Notified Whom Darlin Berclair RN - B 758 -mmHg tO2 ___12.4__ -Vol% Eagle test _Positive -
[2017-03-12] MEDS: Chlorhexidine 0.12% 15 mL Oral Solution MT SCH ×5 (05:38→20:54)
[2017-03-12 06:32] LABS: BASOPHILS % (AUTO) 0.2 % (0-3); EOSINOPHILS % (AUTO) 0.4 % (0-5); MONOCYTES % (AUTO) 16.9 % (4-12); Mean Corpuscular Hemoglobin 34.5 pg (27.0-35.0); Mean Corpuscular Volume 100.4 fL (81-100); NEUTROPHILS % (AUTO) 67.8 % (40-74); Platelet Count 352 bil/L (150-400)
[2017-03-12 06:50] LABS: Magnesium 1.9 mg/dL (1.6-2.6)
[2017-03-12] MEDS: Pantoprazole 4 mg/mL 10 mL Inj IVPUSH SCH ×2 (07:30→16:28)
[2017-03-12] MEDS: LacriLube S.O.P. 3.5 Gm Ophthalmic Ointment BOTH_EYES SCH ×2 (08:30→20:55)
--- NOTE | 2017-03-12 08:34 | DRSVH ---
PROCEDURE: X-RAY CHEST ONE VIEW, PORTABLE ([id number]) INDICATIONS: intubated TECHNIQUE: One view of the chest was acquired. COMPARISON: [facility], CR, XR CHEST 1VW (PORTABLE), 03/10/2017, 3:31. FINDINGS: Surgical changes and devices: Endotracheal and nasogastric tubes appear stable in position. Right ve ntricular catheter also appears stable in position with the tip at the cavoatrial junction. Lungs and pleura: There are increased left cardiac opacities with air bronchograms consistent with c onsolidation. There is pulmonary edema which appears slightly increased. A possible small left pleu ral effusion is present. No definite pneumothorax. Mediastinum: Mediastinal contours appear unchanged. Heart size is normal. Bones and chest wall: No suspicious bony lesions. Overlying soft tissues appear unremarkable. IMPRESSION: 1. Increased left retrocardiac opacities consistent with consolidation which may reflect pneumonia o r aspiration. 2. Slight increased pulmonary edema and possible small left pleural effusion. Dictated by: Josemanuel Luna M.D. on 03/12/2017 at 8:30 Approved by: Josemanuel Luna M.D. on 03/12/2017 at 8:32
[2017-03-12] MEDS: Furosemide 10 mg/mL 2 mL Inj IVPUSH SCH ×2 (09:20→20:54)
--- NOTE | 2017-03-12 11:22 | NUR ---
NUTRITION FOLLOW-UP ASSESS: 51 YO F admitted to CCU following cardiac arrest, etiology unknown. 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 She remains currently intubated and sedated. TF were on hold due to ileus, which has resolved and plan to restart TF today. Hypothermia protocol has been completed. Plan for PS trial today. PMHX: HTN, PE, splenic cyst, alcohol abuse, chronic pain with opiate use, PE's, hepatic vein thrombosis. LABS: Reviewed. Cr 0.46, Glu 127, Ca 8.0, T.bili 1.4, Alb 2.8 MEDS:Reviewed. Pressor, Lasic, Fentanyl, Propofol currently at minimal level providing few calories. GI: No BM reported. SKIN: No pressure injuries, per [employer]. WT: 95.3 kg, BMI 33.9 kg/m2, Admit wt 93.1 kg, IBW 59.1 kg DIET: NPO. ENTERAL FEEDING: (ON HOLD) Jevity 1.5, trophic rate 10 ml/hr. ESTIMATED NEEDS: VENT/BMI Calories: 1605-0889 kcal/day (20-22 kcal/kg BW) Protein: 90-105 g/day (1.5-1.8 g/kg IBW) Fluids: ~2350 ml/day (25 ml/kg) NUTRITION DIAGNOSIS: 1) Inadequate oral intake related to decreased ability to consume sufficient energy as evidenced by current NPO status - PERSISTS. NUTRITION INTERVENTION: 1) Recommend enteral nutrition of Jevity 1.5 at 10 mL/hr. Once tolerance established, recommend advance 10 mL every 6 hr. to goal rate 60 ml/hr. At goal TF will provide 1980 kcal, 84 g protein; meeting 100% calorie, 93% of protein needs. 2) Adjust TF based on daily propofol. 3) Once TF advancing to goal and tolerance established, consider adding 1 packets [employer] liquid protein per day to better meet pt's protein needs providing a total of 95 g protein; meeting 100% protein needs. MONITOR/EVALUATE: NPO/vent status, TF advance/tolerance, wt, GI, labs, POC, nutrition status. Follow per high nutrition risk guidelines. Addendum: 03/13/17 at [address] TF restarted yesterday but stopped around 3 am due to pt coughing up what appeared to be TF.
[2017-03-12] MEDS: fentaNYL 2,500 mCg/250 mL 2,500 MCG in IV Premix 1 EACH IV PRN (13:25)
--- NOTE | 2017-03-12 14:09 | NUR ---
Inpatient Wound Nurse Patient seen for evaluation of bilateral gluteal wounds. R buttock wound appears as deroofed blister, measures 4 cm L x 8 cm W, bright red tissue with skin rolled at proximal margin of wound. A closed blister is noted in R gluteal fold where tissue meets R posterior thigh, measuring 1 cm L x 8 cm W. A third blister is noted on L buttock, 4 cm L x 4 cm W, closed and fluid filled. Open wound was cleansed and blotted dry and covered with one sheet of Mepilex foam that covered entire open area and intact blister in gluteal/thigh fold that is distal of open wound. The L buttock blister was covered with 4 x 4 bordered Mepilex. Blisters were not reported on admission and no contributing information is useful for etiology. Per [facility] guidelines, blisters will be classified as Stage 2 pressure injuries. CWON will follow.
--- NOTE | 2017-03-12 15:08 | PCM.PNMED ---
Subjective Date of Service Mar 12, 2017 Subjective Overnight the patient was weaned down from her sedation. states that he thinks she is able to turn her head to his voice. Respiratory therapy states that they have been suctioning out thick brown secretions which also caused the patient to desaturate last night. Patient demonstrated a fever last night of 38.6. She is maintained around 38.2 since that fever. Exam Vital Signs Vital Sign - Last Date Time Temp Pulse Resp B/P Pulse Ox O2 Delivery O2 Flow Rate FiO2 03/12/17 13:46 85 147/67 96 50 03/12/17 08:30 38.2 18 Mechanical Ventilator Intake and Output 03/11/17 03/11/17 03/12/17 Cumulative From/Thru 15:00 23:00 07:00 03/06/17 15:58 - 03/12/17 05:44 Intake Total 1104 ml 935 ml 12245 ml Output Total 1625 ml 750 ml 63241 ml Balance -521 ml 185 ml 9397 ml Intake IV Total 1064 ml 935 ml 36518 ml Tube Feeding 494 ml Tube Irrigant 40 ml 260 ml Output Urine Total 1500 ml 750 ml 35148 ml Gastric Drainage Total 125 ml 1475 ml # Bowel Movements 0 Exam General: Moving all 4 extremities, not agitated Cardio: Regular rate and rhythm no murmurs Respiratory: CTA bilaterally with crackles, and some wheezes Abdomen: More Soft, positive bowel tones Extremities: Edema and upper extremities, especially around the hands IVs and Medications Medications Reviewed: Medications were reviewed in detail Lab and Diagnostics Result Diagram: 03/12/17 0615 03/12/17 0615 X-Rays, CTs and MRIs Chest x-ray IMPRESSION: Tip of endotracheal tube is 1 cm above the benja, and should be pulled back 3-4 cm. Dictated by: Giovany Modi M.D. on 03/06/2017 at 15:[address] IMPRESSION: No acute intracranial abnormality is not identified on this CT without contrast. Dictated by: Ric Bobby M.D. on 03/06/2017 at 16:27 CTA chest 1. No acute pulmonary embolus. 2. Dependent air space opacities throughout the lungs suspicious for aspiration in the setting of recent cardiac arrest. 3. Bilateral, displaced anterior rib fractures presumably secondary to recent CPR. Dictated by: Sheela Garcia M.D. on 03/06/2017 at 16:[address] 1. No visualized fracture. 2. Pulmonary opacities bilaterally. Please see CT Chest 03/06/17 report for further details. Dictated by: Leticia Maza M.D. on 03/06/2017 at 15:[address] 1. Pulmonary opacities, partially visualized, possibly related to air space disease such as pneumonia or aspiration. 2. Air in the bladder, possibly related to antoine insertion. Other etiologies including infection cannot be excluded. 3. Bilateral rib fractures. Dictated by: Leticia Maza M.D. on 03/06/2017 at 15:59 Chest x-ray IMPRESSION: Central line in good position from a radiographic point of view. No radiographic complication is seen. Other tubes and lines are appropriate. Lungs are clear. Dictated by: Ric Bobby M.D. on 03/06/2017 at 17:51 ROCEDURE: X-RAY CHEST ONE VIEW, PORTABLE ([id number]) IMPRESSION: Improving bilateral pulmonary opacities and pleural effusions. Stable support devices. Dictated by: Bubba Muñoz M.D. on 03/10/2017 at 9:37 . 12-lead ECG EKG 15:46: Prolonged QT with a possible ectopic atrial rhythm; Dr. Xiong reviewed and stated no STEMI Cardiac Echo Impressions Echocardiogram Report Name: ERIC WESLEY MStudy Date: 03/2017 Interpretation Summary The left ventricle is normal in size. There is mild concentric left ventricular hypertrophy. The ejection fraction is estimated to be 35-40%. There is moderate global hypokinesis of the left ventricle. There are no focal wall motion abnormalities. The right ventricle grossly appears normal in size with probable normal systolic function. Right ventricular systolic pressure is estimated to be 18 mmHg plus the clinically estimated CVP which cannot be estimated on this exam. Inspiratory collapse cannot be assessed because of mechanical ventilation, thus CVP cannot be estimated.. No other echocardiographic abnormalities seen. . 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 Currently cause of arrest is unknown but family history is concerning for prolonged QT syndrome. Problem list: 1. Cardiac arrest second to presumed torsades 2. Acute hypoxic respiratory failure 3. Aspiration pneumonia causing sepsis 4. Chronic opioid use 5. Acute encephalopathy Neurological: Medication induced encephalopathy versus anoxic brain injury; patient was titrated down on propofol, fentanyl, and Versed. Currently patient was moving all 4 extremities, only showing some neurologic function. Titrating off the Versed and increasing propofol slightly to compensate for any agitation. Patient cannot have Precedex due to prolonged QT syndrome. -Titrated off Versed -Increased propofol as needed -May consider CT of the brain if patient does not continue to improve -TSH tomorrow Infectious: Aspiration pneumonia; it appeared the patient was responding to the antibiotics but today the white count increased and the patient had fevers overnight. - We will continue Zosyn. - Sputum, blood, line cultures ordered for today. - UA ordered for tomorrow Cardio: Family history is very suggestive of prolonged QT syndrome. Other etiologies could be due to respiratory arrest due to Suboxone and overdose on Percocet. Patient's ejection fraction was 35-40% with global hypokinesis and the left ventricle. - Pressure stable off pressors support - Lasix 40 mg twice a day Respiratory: Aspiration pneumonia with evidence on CT; Bilateral infiltrates consistent with aspiration pneumonia. Patient remains borderline hypoxic even with 0.5 FiO2. There is concerning as the patient has made little progress. She does frequently attempt to override the event, especially to reduce sedation. - Continue to treat aspiration pneumonia; Zosyn - Wean as tolerated - Pulmonary service to manage path to extubation, and this will largely depend on her neurological status Abdomen: Prophylactic with famotidine; unsure what to make of the patient's increased bilirubin. If continues may seek additional imaging. Patient appeared to have ileus yesterday likely caused by the high amount of narcotics. Was given Relistor and today bowel sounds are returned. - Restart trickle feeds Renal: Creatinine has been stable. Urine output adequate - Continue to monitor - Urine analysis ordered with reflex culture Lines: Patient has a central line that has been signed off by radiology. Art line placed previously has failed. Disposition: Unknown discharge date GI Prophylaxis: H2 pierce VTE Mechanical Devices: Intermittant Pneumatic CD Resuscitation Status: CPR: Attempt Resuscitation Time spent 40 minute Attending Statement I interviewed and examined the patient on rounds today. Persistent acute respiratory failure with hypoxia. Gradual progress towards weaning. I agree with the assessment and plan as stated above. Onesimo Cheek DO Mar 12, 2017 15:08 Jean Ortiz MD Mar 13, 2017 07:16
[2017-03-12 16:13] LABS: APPEARANCE,URINE CLEAR (CLEAR,HAZY); COLOR,URINE YELLOW (YELLOW)
[2017-03-12 16:14] LABS: OCCULT BLOOD,URINE TRACE (NEGATIVE); UROBILINOGEN,URINE NORMAL (NORMAL)
[2017-03-12] MEDS: Norepineph 8,000 mCg/250 mL NS 8,000 MCG in IV Premix 1 EACH IV SCH (16:35)
--- NOTE | 2017-03-12 16:52 | PROG NOTE ---
[address] [address] PROGRESS NOTE PATIENT: ERIC WESLEY : 1965 MR#: [id number] ADMIT: 03/06/2017 JOB ID: [id number] DATE: 03/12/2017 The patient is a 51-year-old woman with history of pulmonary embolism, splenectomy, presenting on March 06 with cardiac arrest, status post hypothermia, with respiratory failure. INTERVAL HISTORY: Febrile overnight to 38.6. No other major events. Remains agitated despite sedation but not following commands according to family and nursing staff. REVIEW OF SYSTEMS: Could not be obtained since patient is intubated. PHYSICAL EXAMINATION: Vital signs: Reviewed. Febrile to 38.6, pulse 81, respirations 18, BP 116/61, sats 98% on 50% FiO2 and 5 cm of PEEP. General: Intubated, on sedation, but moving arms and legs. Eyes rolling backward. She is not tracking or following commands. Chest: Coarse breath sounds due to upper airway secretions, coughing. Abdomen: Soft nontender. LABORATORIES: Reviewed. Procalcitonin yesterday was 0.37. WBC is going up slightly to 15.9 today from 14.5 yesterday. Cultures: No growth on blood, sputum cultures so far. IMAGING: Chest x-ray reviewed and shows some right greater than left patchy infiltrates which are overall improved compared to a couple of days ago. ASSESSMENT AND RECOMMENDATIONS: 1. Status post cardiac arrest on March 06, 2017, completed hypothermia protocol. 2. ? anoxic encephalopathy. 3. Acute hypoxic respiratory failure on mechanical ventilation since March 06. 4. Family history of long QT syndrome ? 5. Aspiration pneumonia. 6. Fever, SIRS. RECOMMENDATIONS: This 51-year-old woman with prior history of pulmonary embolism, splenectomy, is presenting with cardiac arrest of unknown etiology and apparently has a family history of a long QT syndrome. She has completed hypothermia protocol and rewarming but remains somewhat encephalopathic. Part of this may be the numerous sedative meds that she has been on so we are still waiting for those to wear off and slowly weaning her sedation off. At present her best neurologic response seems to be agitations and moving all limbs but not really tracking or following commands. With retards to her fever, her procalcitonin was low yesterday. She has been on Zosyn for aspiration pneumonia since admission. I am going to repeat a procalcitonin today as well as blood and sputum cultures looking for other sources of infection. This could be a neurologic fever as well. She is on appropriate DVT and GI prophylaxis and she is a FULL CODE. Her and daughter were updated at the bedside. CRITICAL CARE TIME: 45 minutes.
[2017-03-12] MEDS: Sodium Chloride LOK Flush 10 mL Syringe IVFLUSH PRN (20:55)
[2017-03-13] VITALS (17 sets, daily range): BP systolic 121–149; BP diastolic 56–74; PULSE 79–89; RESP 19–29; O2SAT 92–96
[2017-03-13] MEDS ORDERED: KCl 40 mEq/100 mL Premix (K 3 - 3.7 & Creat < 2) IV ONE (00:30)
[2017-03-13] MEDS: Albuterol-Ipratropium 3 mL Inhalation Solution NEB SCH ×7 (00:37→23:53)
[2017-03-13] MEDS: Piperacillin-Tazo 3.375 Gm Inj 3.375 GM in Dextrose 5% Minibag Plus 50 ML IV SCH ×4 (01:14→23:32)
[2017-03-13] MEDS: Chlorhexidine 0.12% 15 mL Oral Solution MT SCH ×7 (01:14→23:40)
[2017-03-13] MEDS ORDERED: Acetaminophen IV 1,000 MG in IV Premix 1 EACH IV ONE (01:50)
[2017-03-13] MEDS: SODIUM CHLORIDE 0.9% IV SCH (01:54)
[2017-03-13] MEDS: MIDAZOLAM IV SCH (01:54)
--- NOTE | 2017-03-13 05:53 | ABG ---
DateTimeAnalyzed 05:47:00 -_ pH ____7.494 - 7.350 7.450 pCO2 ___33.7__ -mmHg 35.0 45.0 pO2 ___72.7__ -mmHg 69.0 116 HCO3- ___25.7__ -mmol/L 22.0 26.0 ABE ____2.9__ -mmol/L -2.0 2.0 tHb ____9.0__ -g/dL 12.0 18.0 O2Hb ___92.4__ -% COHb ____1.1__ -% 0.0 1.5 MetHb ____1.0__ -% 0.4 1.5 sO2 ___94.4__ -% FIO2 ___50.0__ -% PRVC 14 - PEEP ____5.0__ -cmH2O Vt __480.0__ -L Drawn By blf - Date/Time Notified____ 05:53:00 -_ Spontaneous_RR ___21.0__ -b/min Oxygen Device 1 VENTILATOR - Notified By blf - Notified Whom Summer Rowan RN - B 756 -mmHg tO2 ___11.8__ -Vol% [facility] test _Positive -
[2017-03-13 07:01] LABS: BASOPHILS % (AUTO) 0.1 % (0-3); EOSINOPHILS % (AUTO) 0 % (0-5); MONOCYTES % (AUTO) 11.5 % (4-12); Mean Corpuscular Hemoglobin 34.6 pg (27.0-35.0); Mean Corpuscular Volume 100.8 fL (81-100); NEUTROPHILS % (AUTO) 75.8 % (40-74); Platelet Count 411 bil/L (150-400)
--- NOTE | 2017-03-13 07:50 | NUR ---
NEURO PT VERY ACTIVE, WILL TURN TO VOICE, WILL OPEN EYES AND TRY TO FOCUS, PROPOFOL AT 5MCG/KG/MIN, FENTANYL 50 MCG/HR. SEE FLOW RECORDS
--- NOTE | 2017-03-13 07:52 | DRSVH ---
PROCEDURE: X-RAY CHEST ONE VIEW, PORTABLE ([id number]) INDICATIONS: intubated TECHNIQUE: One view of the chest was acquired. COMPARISON: [facility], CR, XR CHEST 1VW (PORTABLE), 03/12/2017, 7:28. FINDINGS: Surgical changes and devices: Right IJ CVC tip in the low SVC. Enteric tube with tip in the proximal stomach. ET tube with tip 6 CM above the benja. Lungs and pleura: Interval worsening of bibasilar pulmonary opacities with small left-sided pleural e ffusion. Mediastinum: Mediastinal contours appear normal. Heart size is normal. Bones and chest wall: No suspicious bony lesions. Overlying soft tissues appear unremarkable. IMPRESSION: 1. Worsening bibasilar opacities most consistent with infection. 2. Stable ET tube, enteric tube, and right IJ CVC. Dictated by: Bubba Muñoz M.D. on 03/13/2017 at 7:45 Approved by: Bubba Muñoz M.D. on 03/13/2017 at 7:47
[2017-03-13] MEDS: Pantoprazole 4 mg/mL 10 mL Inj IVPUSH SCH ×2 (08:00→16:30)
[2017-03-13 08:06] LABS: Phosphorus 3.5 mg/dL (2.5-4.9)
[2017-03-13] MEDS ORDERED: Methylnaltrexone 12 mg/0.6 mL Inj SUBQ SCH (08:30)
[2017-03-13] MEDS: LacriLube S.O.P. 3.5 Gm Ophthalmic Ointment BOTH_EYES SCH ×2 (08:30→20:30)
[2017-03-13] MEDS: Furosemide 10 mg/mL 2 mL Inj IVPUSH SCH ×2 (09:00→21:37)
--- NOTE | 2017-03-13 11:06 | DRSVH ---
PROCEDURE: US ABDOMEN, LIMITED ([id number]) INDICATIONS: Elevated bili and alk phos, WBC TECHNIQUE: Real-time focused scanning was performed of the abdomen, with image documentation. COMPARISON: [facility], US, VENOUS DUPLEX LOWER EXTREMITY LEFT, 10/05/2016, 9:06 AM. FINDINGS: Liver: Normal echogenicity. No hepatic masses. Gallbladder: Gallbladder size is prominent. There is no cholelithiasis or gallbladder sludge. Normal color wall thickness. No purple cystic fluid. Negative sonographic Aggarwal's sign. Biliary system: No intra-or extrahepatic biliary ductal dilatation. Pancreas: Normal where seen. Spleen: Surgically absent. Small right pleural effusion is incidentally noted. IMPRESSION: No sonographic evidence to support acute cholecystitis. If concern for cholecystitis persists recomme nd a HIDA scan with CCK injection. Right pleural effusion is incidentally noted. Dictated by: Bubba Muñoz M.D. on 03/13/2017 at 11:03 Approved by: Bubba Muñzo M.D. on 03/13/2017 at 11:05
--- NOTE | 2017-03-13 11:16 | PCM.PNMED ---
Subjective Date of Service Mar 13, 2017 Subjective Pulmonary Critical Care Progress Note Hospital day #8 Brief Hx of present illness. 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 Patient received good and nearly immediate CPR in field. Of note patient had just started using a Suboxone patch the same day. Patient is s/p rewarming for 4 days now and has been spiking intermittent fevers. Overnight: Patient spiked fever again of 39.0 Celsius, was cooled with ice packs and given IV tylenol with decrease to 37.5 C. Resp therapy suctioned craig/ yellow colored fluid consistent with color of Jevity from ET tube overnight. Trophic feeds were held. Patient currently completely of Versed, and pressors. Map stable at 81, with BP of 121/62. She is being diuresed for fluid overload and is down 3 L in past 48 hours. And Down 11 KG weight. Patient still up 6L cumulative. Lung sounds are good without adventitious sounds. Patient continues to be get Furosemid 20 mg BID IV. Of concern is patients up trending WBC's now 22.3 up from 15.9 yesterday. Procalc has been unimpressive to-date at 0.27. Also of concern is patients newly elevated bili 1.4-->1.7, and ALK phos 153. Her CXR this AM was notable for worsening of her bilateral opacification. Sputum was poly's and no organisms. Neurologically however we are getting some encouraging signs in that patient is tracking visually and responding to voice commands by grasping. VENT settings include: Pt. now on pressure support, FIO@ 50% and PEEP of 5, Vt of 480. ABG 7.494, PCO2 33.7, PO2 73. Zosyn remains now day #7 for aspiration prophylaxis. Patient remains sedated on Fentanyl 50 mcg, and Propofol 5. Exam Vital Signs Vital Sign - Last Date Time Temp Pulse Resp B/P Pulse Ox O2 Delivery O2 Flow Rate FiO2 03/13/17 07:34 82 25 139/69 96 50 03/13/17 04:12 37.5 Mechanical Ventilator Intake and Output 03/12/17 03/12/17 03/13/17 Cumulative From/Thru 15:00 23:00 07:00 03/06/17 15:58 - 03/13/17 02:52 Intake Total 262 ml 10582 ml Output Total 3450 ml 82768 ml Balance -3188 ml 6209 ml Intake IV Total 262 ml 80237 ml Tube Feeding 494 ml Tube Irrigant 260 ml Output Urine Total 3450 ml 77830 ml Gastric Drainage Total 1475 ml # Bowel Movements 0 Lab and Diagnostics Result Diagram: 03/13/17 0652 03/13/17 0652 X-Rays, CTs and MRIs Chest x-ray IMPRESSION: Tip of endotracheal tube is 1 cm above the benja, and should be pulled back 3-4 cm. Dictated by: Giovany Modi M.D. on 03/06/2017 at 15:[address] IMPRESSION: No acute intracranial abnormality is not identified on this CT without contrast. Dictated by: Ric Bobby M.D. on 03/06/2017 at 16:27 CTA chest 1. No acute pulmonary embolus. 2. Dependent air space opacities throughout the lungs suspicious for aspiration in the setting of recent cardiac arrest. 3. Bilateral, displaced anterior rib fractures presumably secondary to recent CPR. Dictated by: Sheela Garcia M.D. on 03/06/2017 at 16:[address] 1. No visualized fracture. 2. Pulmonary opacities bilaterally. Please see CT Chest 03/06/17 report for further details. Dictated by: Leticia Maza M.D. on 03/06/2017 at 15:[address] 1. Pulmonary opacities, partially visualized, possibly related to air space disease such as pneumonia or aspiration. 2. Air in the bladder, possibly related to antoine insertion. Other etiologies including infection cannot be excluded. 3. Bilateral rib fractures. Dictated by: Leticia Maza M.D. on 03/06/2017 at 15:59 Chest x-ray IMPRESSION: Central line in good position from a radiographic point of view. No radiographic complication is seen. Other tubes and lines are appropriate. Lungs are clear. Dictated by: Ric Bobby M.D. on 03/06/2017 at 17:51 ROCEDURE: X-RAY CHEST ONE VIEW, PORTABLE ([id number]) IMPRESSION: Improving bilateral pulmonary opacities and pleural effusions. Stable support devices. Dictated by: Bubba Muñoz M.D. on 03/10/2017 at 9:37 . 12-lead ECG EKG 15:46: Prolonged QT with a possible ectopic atrial rhythm; Dr. Xiong reviewed and stated no STEMI Cardiac Echo Impressions Echocardiogram Report Name: ERIC WESLEY MStudy Date: 03/2017 Interpretation Summary The left ventricle is normal in size. There is mild concentric left ventricular hypertrophy. The ejection fraction is estimated to be 35-40%. There is moderate global hypokinesis of the left ventricle. There are no focal wall motion abnormalities. The right ventricle grossly appears normal in size with probable normal systolic function. Right ventricular systolic pressure is estimated to be 18 mmHg plus the clinically estimated CVP which cannot be estimated on this exam. Inspiratory collapse cannot be assessed because of mechanical ventilation, thus CVP cannot be estimated.. No other echocardiographic abnormalities seen. . Assessment & Plan 51-year-old female history hypertension, multiple pulmonary embolism and hepatic vein thrombosis, and alcohol abuse on chronic opioids and started Suboxone on day of admit, who presented to the emergency department following a cardiac arrest. Currently cause of arrest is unknown but family history is concerning for prolonged QT syndrome. Problem list: 1. Cardiac arrest second to presumed torsades 2. Acute hypoxic respiratory failure 3. Aspiration pneumonia causing sepsis 4. Chronic opioid use 5. Acute encephalopathy Neurological: Medication induced encephalopathy versus anoxic brain injury; patient was titrated down on propofol, fentanyl, and Versed. Currently patient was moving all 4 extremities, only showing some neurologic function. Titrating off the Versed and increasing propofol slightly to compensate for any agitation. Patient cannot have Precedex due to prolonged QT syndrome. -Titrated off Versed -Increased propofol as needed -Cyclic fevers, with spike of Temp again at 39.0 C overnight, still unclear if this is central or infectious. -Patient responding now to verbal commands with gaze and hand squeeze -TSH was low at 0.346 -CT Head to be done today to evaluate for etiology of elevated WBC count as patient should be adequately prophylaxed with Zosyn for aspiration pneumonia. Infectious: Aspiration pneumonia; it appeared the patient was responding to the antibiotics but today the white count increased and the patient had fevers overnight. - We will continue Zosyn. - Sputum showed PMN's and no organisms, blood cx pending. - WBC's Trending up and 15.9-->22.3 overnight - CT chest abdomen pelvis with contrast today. - May consider bronchoscopy if Pratt CT with contrast does not reveal etiology of elevated WBC count - Will consider Meropenem pending CT results. Cardio: Family history is very suggestive of prolonged QT syndrome. Other etiologies could be due to respiratory arrest due to Suboxone and overdose on Percocet. Patient's ejection fraction was 35-40% with global hypokinesis and the left ventricle. - Pressure stable off pressors support - Lasix 40 mg twice a day Hematologic: - Prior report of evidence of Antiphospholipid antibody - Prior hx of PE's and portal vein thrombosis requiring anticoagulation. - Patient currently anticoagulated on SubQ Lovenox - Repeat Anti phospholipid antibody today, ANCA panel, Respiratory: Aspiration pneumonia with evidence on CT; Bilateral infiltrates consistent with aspiration pneumonia. Patient remains borderline hypoxic even with 0.5 FiO2. There is concerning as the patient has made little progress. She does frequently attempt to override the event, especially to reduce sedation. - Continue to treat aspiration pneumonia; Zosyn - Wean as tolerated - Pulmonary service to manage path to extubation, and this will largely depend on her neurological and respiratory status Abdomen: Prophylactic with famotidine; unsure what to make of the patient's increased bilirubin. If continues may seek additional imaging. Patient appeared to have ileus yesterday likely caused by the high amount of narcotics. Was given Relistor and today bowel sounds are returned. - Restart trickle feeds Renal: Creatinine has been stable. Urine output adequate - Continue to monitor - Urine analysis ordered with reflex culture Lines: Patient has a central line that has been signed off by radiology. Art line placed previously has failed. Disposition: Unknown discharge date GI Prophylaxis: H2 pierce VTE Mechanical Devices: Intermittant Pneumatic CD Resuscitation Status: CPR: Attempt Resuscitation Attending Statement I have seen and examined this patient with the resident physician. Vital signs , labs, imaging have been reviewed. I agree with the assessment and plan above. Please refer to my separately dictated progress note for any modifications to above. Dacia Mora M.D. Pulmonary and Critical Care medicine Pager [phone] Liam Lewis DO Mar 13, 2017 11:16 Dacia Mora MD Mar 14, 2017 07:28
--- NOTE | 2017-03-13 11:54 | PROG NOTE ---
[address] [address] PROGRESS NOTE PATIENT: ERIC WESLEY : 1965 MR#: [id number] ADMIT: 03/06/2017 JOB ID: [id number] DATE: 03/13/2017 PULMONARY CRITICAL CARE PROGRESS NOTE: IDENTIFICATION: The patient is a 51-year-old woman with history of ?antiphospholipid antibody syndrome status post splenectomy and family history of long QT syndrome presenting on March 06 with cardiac arrest status post hypothermia protocol, with acute respiratory failure on mechanical ventilation. The patient was seen and evaluated with resident physician, Liam Lewis, please refer to his separate detailed note for additional information. INTERVAL HISTORY: Continues to have high fevers 39, remains hemodynamically stable. Neurologically improved, following commands, nodding to questions, et cetera. REVIEW OF SYSTEMS: Unable to obtain since patient is intubated. PHYSICAL EXAMINATION: Vital signs reviewed. T-max 39, pulse 82, respirations 25, sats 96% on 50% FiO2. General intubated on sedation, but opens her eyes, tries to nod in response to questions. Chest clear to auscultation. Heart regular rate and rhythm. Abdomen is soft and nontender. LABORATORIES: Reviewed notable for WBC up to 22 from 15. Chemistry also reviewed. Procalcitonin 0.27. Cultures no growth on blood, sputum. Chest x-ray shows worsening patchy infiltrates, more so on the right. ASSESSMENT AND RECOMMENDATIONS: 1. Status post cardiac arrest on March 06, completed hypothermia protocol. 2. Acute hypoxic respiratory failure on mechanical ventilation since March 06. 3. History of antiphospholipid antibody syndrome on anticoagulation. 4. Aspiration pneumonia. 5. Fever, unexplained. 6. Family history of long QT syndrome. This 51-year-old woman with a complex past medical history including a family history of long QT syndrome, personal history of multiple thromboembolic events as well as antiphospholipid antibody syndrome for which she has been on anticoagulation presented with an acute cardiac arrest that was unexplained. We were concerned about anoxic encephalopathy, but neurologically she seems improved and is following commands today which is a great sign. However, her white count continues to rise and is up to 22 today, she continues to have fever as high as 39 with no obvious explanation. She has been on Zosyn since admission for an aspiration pneumonia and has practically completed a course of antibiotics. Chest x-ray shows worsening infiltrates. Blood and sputum cultures remain negative. Procalcitonin is low intermediate at 0.27, stable. In this setting, I think with her history of antiphospholipid antibody, we should rule out additional thromboses. We are going to go ahead with a CT of the head, chest, abdomen, and pelvis looking for a source of this fever and potentially another thrombosis. She should be back on anticoagulation which was held for hypothermia protocol. With regards to antibiotics, will continue Zosyn for now, but she has actually completed a course so this can be stopped after today. Another thing to consider would be a bronchoscopy if the other above workup does not reveal a source of fever. Family was updated at the bedside. She is on appropriate DVT and GI prophylaxis. TIME: Total care time is 60 minutes.
[2017-03-13 13:00] LABS: BASOPHILS % (AUTO) 0.2 % (0-3); EOSINOPHILS % (AUTO) 0.1 % (0-5); MONOCYTES % (AUTO) 10.8 % (4-12); Mean Corpuscular Hemoglobin 34.7 pg (27.0-35.0); Mean Corpuscular Volume 101.9 fL (81-100); NEUTROPHILS % (AUTO) 77.2 % (40-74); Platelet Count 435 bil/L (150-400)
--- NOTE | 2017-03-13 14:00 | NUR ---
SBT x4hr; mason well on Propofol 5mcg/kg/min & Fentanyl 50mcg/hr
--- NOTE | 2017-03-13 16:16 | NUR ---
Inpatient Wound Nurse Patient seen in follow up of gluteal wounds. These wounds appear improved from yesterday's assessment, denuded tissue is much less erythemic. Intact bulla on R gluteal/thigh fold is flattened and skin has remained intact. L gluteal wound is dark and crusted. Minimal drainage noted. Wounds were cleansed and blotted dry. Two smaller wounds were covered with 4x4 bordered Mepilex foam dressing. Larger wound was covered with sacral shaped bordered Mepilex foam dressing placed horizontally (instead of vertically, as designed) to capture width of wound. All of these dressings have silicone facing. CWON will see patient daily for dressing changes. Nursing staff may change dressings PRN, as they are likely to roll, wad, and become soiled with stool. Mepilex sheet foam may be used or bordered Mepilex as long as adhesive borders are kept off denuded areas.
--- NOTE | 2017-03-13 17:33 | NUR ---
Social Work: Continued Discharge Planning/Multidisciplinary Rounds D: Pt discussed in multidisciplinary rounds. Pt remains in CCU on mech. vent. Pt still requires hospitalization however is progressing towards possible extubation in the next several days. The pt may have a possible infection and will need to be evaluated for a pace maker placement once extubated. Case management continues to follow pt's progress to assess for discharge needs. Needs unknown at this time. A: Pt who is I and lives in [place] with her spouse at baseline P: Evolving; DIRECTOR OF RETAIL to continue to follow to assess for discharge needs and assist with safe discharge planning. MAVIS Beasley
[2017-03-13] MEDS: Norepineph 8,000 mCg/250 mL NS 8,000 MCG in IV Premix 1 EACH IV SCH (17:50)
--- NOTE | 2017-03-13 18:05 | DRSVH ---
PROCEDURE: CT BRAIN WITHOUT CONTRAST ([id number]) INDICATIONS: Fevers, AMS TECHNIQUE: Noncontrast 4.5 mm thick angled axial sections acquired from the foramen magnum to the vertex, with c oronal reformats. COMPARISON: [facility], CT, CT BRAIN WO CON, 03/06/2017, 16:04. FINDINGS: Image quality: Excellent. CSF spaces: Basal cisterns are patent. No extra-axial fluid collections. Ventricles are normal in size and shape. Brain: No midline shift. No intracranial masses or hemorrhage. There is mild cerebral volume loss f or age. Mild periventricular white matter chronic small vessel ischemic changes are noted.. Skull and face: Calvarium and visualized facial bones are intact, without suspicious lesions. Sinuses: Opacification of ethmoid, axillary and sphenoid sinuses bilaterally. There is mucosal thicke arnulfo frontal sinuses. Air-fluid levels are noted in maxillary sinuses bilaterally. The mastoids are c lear. IMPRESSION: 1. No acute intracranial abnormalities. 2. Pansinusitis. Dictated by: Eric Carvajal M.D. on 03/13/2017 at 18:00 Approved by: Eric Carvajal M.D. on 03/13/2017 at 18:03
--- NOTE | 2017-03-13 18:19 | DRSVH ---
PROCEDURE: CT CHEST, ABDOMEN AND PELVIS [facility] CONTRAST ([id number]) INDICATIONS: Fevers, AMS TECHNIQUE: After the administration of oral and intravenous contrast, 5 mm thick sections acquired from the lung apices to the symphysis. 5 mm coronal and sagittal reformats were performed, with additional 7 mm c oronal MIP reformats through the lungs. For radiation dose reduction, the following was used: autom ated exposure control, adjustment of mA and/or kV according to patient size. COMPARISON: [facility], CT, CT [facility]BD PEL[facility] W CON[facility], 03/06/2017, 16:04. [facility], CR, XR CHEST 1VW (PORTABLE), 03/13/2017, 2:02. FINDINGS: Image quality: Excellent. CHEST: Lungs and pleura: Bilateral airspace opacities are present consistent with pneumonia. There are small bilateral pleural effusions and bibasilar consolidation/atelectasis.. No pleural effusions or pneum othorax. Central and peripheral airways appear patent and normal in caliber. Mediastinum: There is an intrathecal tube and a nasogastric tube. Heart size is normal. No pericard ial effusion. Mildly enlarged mediastinal and hilar lymph nodes are present. Thoracic aorta and cent ral pulmonary arteries are normal in size. Esophagus is normal in caliber. No hiatal hernia. Chest wall: Multiple anterior rib fractures are again noted. No axillary or supraclavicular adenopat hy by size criteria. Thyroid gland is normal. ABDOMEN: Solid organs: Liver is normal in size and enhancement. Spleen is absent. Gallbladder is normal. Bi liary system is non dilated. Pancreas enhances normally. No adrenal nodules. Kidneys demonstrate n ormal size and enhancement, without hydronephrosis. Peritoneum and bowel: Bowel loops demonstrate normal caliber. Sigmoid colon may be thickened althou gh the appearance could be caused by nondistention. No free air. There is a small amount of free flu id. Nodes and vessels: No retroperitoneal or mesenteric adenopathy by size criteria. Aorta and inferior vena cava are normal in size. Miscellaneous: No ventral hernias. PELVIS: Genitourinary: Bladder wall thickness is normal. There is a Espinosa catheter in the bladder. Miscellaneous: No inguinal hernias or adenopathy. Bones: Sclerotic appearance of pelvis is most likely secondary to osteitis pubis. Lower lumbar spine fusion. No vertebral body compression fractures. IMPRESSION: 1. Bilateral airspace opacities and bibasilar consolidations consistent with pneumonia. 2. Small bilateral perfusion is in bibasilar atelectasis. 3. Mild mediastinal and hilar lymphadenopathy. 4. Appearance of wall thickening in sigmoid colon. Differential diagnoses include early colitis versu s artifact given lack of distention. A small amount of free fluid is present. 5. Anterior rib fractures bilaterally. Dictated by: Eric Carvajal M.D. on 03/13/2017 at 18:04 Approved by: Eric Carvajal M.D. on 03/13/2017 at 18:17
--- NOTE | 2017-03-13 18:20 | NUR ---
CT Brain, Chest, Abd, Pelvis completed w/ po & IV contrast
--- NOTE | 2017-03-13 18:40 | NUR ---
Small bowel movement; large amts flatus
--- NOTE | 2017-03-13 19:11 | PCM.PNMED ---
Subjective Date of Service Mar 13, 2017 Subjective Overnight patient continued to have fevers. She is currently on Zosyn which should be sufficient coverage unless this is atypical or staph. She does have a history of antiphospholipid antibodies and discussion during ICU rounds focused somewhat on her fever and white count being due to vasculitis rather than infection. Patient does have aspiration pneumonia no doubt, this should be adequately covered with Zosyn. Exam Vital Signs Vital Sign - Last Date Time Temp Pulse Resp B/P Pulse Ox O2 Delivery O2 Flow Rate FiO2 03/13/17 17:49 80 137/74 50 03/13/17 11:47 24 96 03/13/17 04:12 37.5 Mechanical Ventilator Intake and Output 03/12/17 03/12/17 03/13/17 Cumulative From/Thru 15:00 23:00 07:00 03/06/17 15:58 - 03/13/17 02:52 Intake Total 262 ml 16403 ml Output Total 3450 ml 49533 ml Balance -3188 ml 6209 ml Intake IV Total 262 ml 11696 ml Tube Feeding 494 ml Tube Irrigant 260 ml Output Urine Total 3450 ml 44240 ml Gastric Drainage Total 1475 ml # Bowel Movements 0 Exam General: Moving all 4 extremities cooperative and following commands Cardio: Regular rate and rhythm no murmurs Respiratory: CTA bilaterally with crackles, and some wheezes Abdomen: More Soft, positive bowel tones Extremities: Edema and upper extremities, especially around the hands IVs and Medications Medications Reviewed: Medications were reviewed in detail Lab and Diagnostics Result Diagram: 03/13/17 1257 03/13/17 0652 X-Rays, CTs and MRIs Chest x-ray IMPRESSION: Tip of endotracheal tube is 1 cm above the benja, and should be pulled back 3-4 cm. Dictated by: Giovany Modi M.D. on 03/06/2017 at 15:[address] IMPRESSION: No acute intracranial abnormality is not identified on this CT without contrast. Dictated by: Ric Bobby M.D. on 03/06/2017 at 16:27 CTA chest 1. No acute pulmonary embolus. 2. Dependent air space opacities throughout the lungs suspicious for aspiration in the setting of recent cardiac arrest. 3. Bilateral, displaced anterior rib fractures presumably secondary to recent CPR. Dictated by: Sheela Garcia M.D. on 03/06/2017 at 16:[address] 1. No visualized fracture. 2. Pulmonary opacities bilaterally. Please see CT Chest 03/06/17 report for further details. Dictated by: Leticia Maza M.D. on 03/06/2017 at 15:[address] 1. Pulmonary opacities, partially visualized, possibly related to air space disease such as pneumonia or aspiration. 2. Air in the bladder, possibly related to antoine insertion. Other etiologies including infection cannot be excluded. 3. Bilateral rib fractures. Dictated by: Leticia Maza M.D. on 03/06/2017 at 15:59 Chest x-ray IMPRESSION: Central line in good position from a radiographic point of view. No radiographic complication is seen. Other tubes and lines are appropriate. Lungs are clear. Dictated by: Ric Bobby M.D. on 03/06/2017 at 17:51 ROCEDURE: X-RAY CHEST ONE VIEW, PORTABLE ([id number]) IMPRESSION: Improving bilateral pulmonary opacities and pleural effusions. Stable support devices. Dictated by: Bubba Muñoz M.D. on 03/10/2017 at 9:37 . 12-lead ECG EKG 15:46: Prolonged QT with a possible ectopic atrial rhythm; Dr. Xiong reviewed and stated no STEMI Cardiac Echo Impressions Echocardiogram Report Name: ERIC WESLEY MStudy Date: 03/2017 Interpretation Summary The left ventricle is normal in size. There is mild concentric left ventricular hypertrophy. The ejection fraction is estimated to be 35-40%. There is moderate global hypokinesis of the left ventricle. There are no focal wall motion abnormalities. The right ventricle grossly appears normal in size with probable normal systolic function. Right ventricular systolic pressure is estimated to be 18 mmHg plus the clinically estimated CVP which cannot be estimated on this exam. Inspiratory collapse cannot be assessed because of mechanical ventilation, thus CVP cannot be estimated.. No other echocardiographic abnormalities seen. . 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 Currently cause of arrest is unknown but family history is concerning for prolonged QT syndrome. Problem list: 1. Cardiac arrest second to presumed torsades 2. Acute hypoxic respiratory failure 3. Aspiration pneumonia causing sepsis 4. Chronic opioid use 5. Acute encephalopathy 6. Antiphospholipid syndrome Neurological: Patient continues to improve as showing that she can follow commands and cooperate. Open eyes and turning towards voice. -Continue to titrate off sedatives -CT brain Infectious: Aspiration pneumonia vs vasculitis vs fever of unknown origin; persistent white count and continued fever are worrisome for ongoing infection not treated with Zosyn. Patient has history of antiphospholipid syndrome which could be part of it larger vasculitis. Patient's pro-calcitonin is also remain negative which is added to the query on why this patient continues to have fever and leukocytosis. Patient's elevation in bilirubin and alkaline phosphatase and a possible biliary infection. - We will continue Zosyn. - Cultures pending from yesterday - Pratt scan with contrast - Right upper quadrant ultrasound Cardio: Family history is very suggestive of prolonged QT syndrome. Other etiologies could be due to respiratory arrest due to Suboxone and overdose on Percocet. Patient's ejection fraction was 35-40% with global hypokinesis and the left ventricle. - Continue Lasix 40 mg twice a day Respiratory: Aspiration pneumonia with evidence on CT; Bilateral infiltrates consistent with aspiration pneumonia. Patient remains borderline hypoxic even with 0.5 FiO2. There is concerning as the patient has made little progress. She does frequently attempt to override the event, especially to reduce sedation. With regards to the patient been extubated, it is worrisome to extubate with FiO2 of 0.5 and a fever of unknown origin. The patient continues to progress will continue to discuss with pulmonary. - Continue to treat aspiration pneumonia; Zosyn - Wean as tolerated - Pulmonary service to manage path to extubation, and this will largely depend on her neurological status Abdomen: Prophylactic with famotidine; unsure what to make of the patient's increased bilirubin. If continues may seek additional imaging. Patient appeared to have ileus yesterday likely caused by the high amount of narcotics. Was given Relistor and today bowel sounds are returned. - Restart trickle feeds - Right upper quadrant ultrasound Renal: Creatinine has been stable. Urine output adequate - Continue to monitor - Urine analysis negative Lines: Patient has a central line that has been signed off by radiology. Art line placed previously has failed. Status: No current timetable for extubation at discharge GI Prophylaxis: H2 pierce VTE Mechanical Devices: Intermittant Pneumatic CD Resuscitation Status: CPR: Attempt Resuscitation Time spent 40 minutes, and patient assessment in review of data with consultants on the unit Attending Statement I examined the patient on rounds today. I agree with the assessment and plan as stated above. Onesimo Cheek DO Mar 13, 2017 19:11 Jean Ortiz MD Mar 15, 2017 07:43
[2017-03-13] MEDS: fentaNYL 2,500 mCg/250 mL 2,500 MCG in IV Premix 1 EACH IV PRN (20:01)
[2017-03-13] MEDS ORDERED: Acetaminophen 32.5 mg/mL 20 mL Liquid TUBE PRN (22:50)
[2017-03-14] VITALS (15 sets, daily range): BP systolic 135–151; BP diastolic 72–87; PULSE 63–81; RESP 12–29; O2SAT 94–99
[2017-03-14] MEDS: SODIUM CHLORIDE 0.9% IV SCH ×2 (01:54→20:21)
[2017-03-14] MEDS: MIDAZOLAM IV SCH ×2 (01:54→20:21)
[2017-03-14] MEDS: Chlorhexidine 0.12% 15 mL Oral Solution MT SCH ×5 (03:55→20:21)
--- NOTE | 2017-03-14 05:29 | ABG ---
DateTimeAnalyzed 05:20:18 -_ pH ____7.513 - 7.350 7.450 pCO2 ___39.2__ -mmHg 35.0 45.0 pO2 ___74.6__ -mmHg 69.0 116 HCO3- ___31.5__ -mmol/L 22.0 26.0 ABE ____7.8__ -mmol/L -2.0 2.0 tHb ____8.8__ -g/dL 12.0 18.0 O2Hb ___94.9__ -% COHb ____1.8__ -% 0.0 1.5 MetHb ____0.0__ -% 0.4 1.5 sO2 ___96.2__ -% FIO2 ___50.0__ -% PEEP ____5.0__ -cmH2O Set_RR 12 -b/min Vt __480.0__ -L Drawn By AF - Date/Time Notified____ 05:29:00 -_ Spontaneous_RR 12 -b/min Oxygen Device 1 VENTILATOR - Notified By AF - K+ ____3.0__ -mmol/L 3.5 5.0 tO2 ___11.8__ -Vol% Eagle test _Positive -
[2017-03-14] MEDS: Albuterol-Ipratropium 3 mL Inhalation Solution NEB SCH ×5 (05:41→21:03)
[2017-03-14 05:55] LABS: BASOPHILS % (AUTO) 0.2 % (0-3); EOSINOPHILS % (AUTO) 0.3 % (0-5); MONOCYTES % (AUTO) 9.5 % (4-12); Mean Corpuscular Hemoglobin 34.9 pg (27.0-35.0); Mean Corpuscular Volume 101.6 fL (81-100); Platelet Count 512 bil/L (150-400)
[2017-03-14 06:20] LABS: Magnesium 2.1 mg/dL (1.6-2.6); Phosphorus 3.7 mg/dL (2.5-4.9)
[2017-03-14] MEDS: Ondansetron 2 mg/mL 2 mL Inj IVPUSH PRN ×2 (06:32→15:05)
--- NOTE | 2017-03-14 07:22 | NUR ---
Vomiting/LOC/Temp Pt waking up with stimuli. She at times tries to communicate verbally. Pt opens eyes with stimuli and nods at times to answer question. Pt was restless last night in bed and swinging legs on the sides of the bed. Propofol down to 10 mcg/kg/min Temp max 38.3. Tylenol and Ice bag given with some effectiveness noted. Residual of 30 cc noted this am. Pt noted to be coughing intermittently with thin, craig and white sputum. She had episode of medium and large vomiting of bile, green drainage this am. Stopped tubing feeding at this time. NG placed on low continuous suction at this time. Suction prn and frequent oral care done. Small bm noted. Pt noted to be passing lots of gas all night. Several complete bed change done. Zofran given this am. Telemetry SR in 70s. 02sat in mid 90s on Ventilator 50%/5/480 setting.
[2017-03-14] MEDS ORDERED: KCl 20 mEq/100 mL(CENTRAL) 20 MEQ in IV Premix 1 EACH IV ONE (07:30)
[2017-03-14] MEDS: Pantoprazole 4 mg/mL 10 mL Inj IVPUSH SCH ×2 (08:07→16:12)
[2017-03-14] MEDS: Piperacillin-Tazo 3.375 Gm Inj 3.375 GM in Dextrose 5% Minibag Plus 50 ML IV SCH (08:07)
[2017-03-14] MEDS: LacriLube S.O.P. 3.5 Gm Ophthalmic Ointment BOTH_EYES SCH ×2 (08:08→20:21)
[2017-03-14] MEDS: Furosemide 10 mg/mL 2 mL Inj IVPUSH SCH (08:15)
--- NOTE | 2017-03-14 08:37 | DRSVH ---
PROCEDURE: X-RAY CHEST ONE VIEW, PORTABLE ([id number]) INDICATIONS: intubated TECHNIQUE: One view of the chest was acquired. COMPARISON: [facility], CR, XR CHEST 1VW (PORTABLE), 03/13/2017, 2:02. FINDINGS: Surgical changes and devices: Right IJ CVC tip in the low SVC. ET tube with tip 3 CM above the benja . Enteric tube with tip below the diaphragm. Lungs and pleura: Improving right basilar pulmonary opacities. Worsening left basilar pulmonary opac ities. Stable left apical pulmonary opacities. Small left pleural effusion.. Mediastinum: Mediastinal contours appear normal. Heart size is normal. Bones and chest wall: No suspicious bony lesions. Overlying soft tissues appear unremarkable. The patient's known rib fractures are below the resolution of this study. IMPRESSION: Mixed worsening and improvement of bilateral pneumonia. Stable support devices. Dictated by: Bubba Muñoz M.D. on 03/14/2017 at 8:34 Approved by: Bubba Muñoz M.D. on 03/14/2017 at 8:35
[2017-03-14] MEDS ORDERED: Lidocaine PF 2% 10 mL Inj ONE (10:27)
[2017-03-14] MEDS ORDERED: Lidocaine PF 2% 10 mL Inj INHALATION ONE (10:50)
[2017-03-14] MEDS ORDERED: Lidocaine PF 2% 10 mL Inj MUC_MEMBRM ONE (10:50)
--- NOTE | 2017-03-14 11:15 | PCM.PNMED ---
Subjective Date of Service Mar 14, 2017 Subjective Pulmonary Critical Care Progress Note Hospital day #9 Brief Hx of present illness. 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 Patient received good and nearly immediate CPR in field. Of note patient had just started using a Suboxone patch the same day. Patient is s/p rewarming. Overnight: Patient spiked fever again of 38.0 Celsius, and given IV tylenol. Patient had 3 episodes of emesis that was suctioned returning grean cloudy fluid. Patient has strong gag reflex to ET tube. Trophic feeds stopped as patient does not seem to be benefiting from them. CT head returned negative except for pansinusitis, CT chest abdomen pelvis was significant for worsening b /l lung field consolidation and opacification. Abdominal US was negative for signs of cholecystitis. Bilib and Alk phos continue to trend up. This AM Pt WBC count is down to 19.5 from 22 yesterday. Procalc has been unimpressive and 0.27 for two consecutive days now. She remains on Zosyn for antibiosis total of 8 days. Patients Anticoagulation panel and ANCA are still pending. MISAEL returned negative. Patient continues to be get Furosemid 20 mg BID IV. Procalc has been unimpressive to-date at 0.27. Her CXR this AM showing mixed worsening and improvement of her bilateral opacifications. Neurologically patient is tracking visually and responding to voice commands by grasping and working with PT. VENT settings include: Pt. now on pressure support, FIO@ 50% and PEEP of 5, Vt of 480. ABG indicating a metabolic alkalosis 7.513, PCO2 39.2 , PO2 74.6, HCO3- 31.5. Patient remains sedated on Fentanyl 50 mcg, and Propofol 5. Exam Vital Signs Vital Sign - Last Date Time Temp Pulse Resp B/P Pulse Ox O2 Delivery O2 Flow Rate FiO2 03/14/17 09:40 76 140/87 50 03/14/17 08:00 37.7 29 98 Mechanical Ventilator Intake and Output 03/13/17 03/13/17 03/14/17 Cumulative From/Thru 15:00 23:00 07:00 03/06/17 15:58 - 03/14/17 06:10 Intake Total 348 ml 1152 ml 957 ml 60654 ml Output Total 900 ml 1600 ml 1580 ml 55998 ml Balance -552 ml -448 ml -623 ml 4586 ml Intake Oral 800 ml 0 ml 800 ml IV Total 348 ml 352 ml 854 ml 61596 ml Tube Feeding 83 ml 577 ml Tube Irrigant 20 ml 280 ml Output Urine Total 900 ml 1600 ml 1500 ml 09083 ml Gastric Drainage Total 80 ml 1555 ml # Bowel Movements 0 1 1 2 Exam General: Sedated and Intubated, alert and responds to verbal commands, patient tracks visually. HEENT: Eyes PERLLA, no erythema, Neck no adenopathy Heart: Regular rate and rhythm no murmurs, S1, S2 present Lungs: CTA bilaterally, mild crackles Abdomen: Soft,non distended, active bowel sounds present Extremities: No edema, pulses are equal b/l Neuro: Sedated but arrousable and motions with hands, able to track visually, working with physical therapy. Skin: Warm, Dry, bilateral skin erosions on buttock, 6 cm linear blister on anterior of left thigh, rash beneath right IJ bandage consistent with tape rash. IVs and Medications Medications Reviewed: Medications were reviewed in detail Lab and Diagnostics Result Diagram: 03/14/17 0535 03/14/17 0535 X-Rays, CTs and MRIs Chest x-ray IMPRESSION: Tip of endotracheal tube is 1 cm above the benja, and should be pulled back 3-4 cm. Dictated by: Giovany Modi M.D. on 03/06/2017 at 15:[address] IMPRESSION: No acute intracranial abnormality is not identified on this CT without contrast. Dictated by: Ric Bobby M.D. on 03/06/2017 at 16:27 CTA chest 1. No acute pulmonary embolus. 2. Dependent air space opacities throughout the lungs suspicious for aspiration in the setting of recent cardiac arrest. 3. Bilateral, displaced anterior rib fractures presumably secondary to recent CPR. Dictated by: Sheela Garcia M.D. on 03/06/2017 at 16:[address] 1. No visualized fracture. 2. Pulmonary opacities bilaterally. Please see CT Chest 03/06/17 report for further details. Dictated by: Leticia Maza M.D. on 03/06/2017 at 15:[address] 1. Pulmonary opacities, partially visualized, possibly related to air space disease such as pneumonia or aspiration. 2. Air in the bladder, possibly related to antoine insertion. Other etiologies including infection cannot be excluded. 3. Bilateral rib fractures. Dictated by: Leticia Maza M.D. on 03/06/2017 at 15:59 Chest x-ray IMPRESSION: Central line in good position from a radiographic point of view. No radiographic complication is seen. Other tubes and lines are appropriate. Lungs are clear. Dictated by: Ric Bobby M.D. on 03/06/2017 at 17:51 ROCEDURE: X-RAY CHEST ONE VIEW, PORTABLE ([id number]) IMPRESSION: Improving bilateral pulmonary opacities and pleural effusions. Stable support devices. Dictated by: Bubba Muñoz M.D. on 03/10/2017 at 9:37 . 12-lead ECG EKG 15:46: Prolonged QT with a possible ectopic atrial rhythm; Dr. Xiong reviewed and stated no STEMI Cardiac Echo Impressions Echocardiogram Report Name: ERIC WESLEY MStudy Date: 03/2017 Interpretation Summary The left ventricle is normal in size. There is mild concentric left ventricular hypertrophy. The ejection fraction is estimated to be 35-40%. There is moderate global hypokinesis of the left ventricle. There are no focal wall motion abnormalities. The right ventricle grossly appears normal in size with probable normal systolic function. Right ventricular systolic pressure is estimated to be 18 mmHg plus the clinically estimated CVP which cannot be estimated on this exam. Inspiratory collapse cannot be assessed because of mechanical ventilation, thus CVP cannot be estimated.. No other echocardiographic abnormalities seen. . 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 Currently cause of arrest is unknown but family history is concerning for prolonged QT syndrome. Problem list: 1. Cardiac arrest second to presumed torsades 2. Acute hypoxic respiratory failure 3. Aspiration pneumonia causing sepsis 4. Chronic opioid use 5. Acute encephalopathy 6. Antiphospholipid syndrome Neurological: Patient continues to improve as showing that she can follow commands and cooperate. Open eyes and turning towards voice. Is now working with PT. -Continue to titrate off sedatives -CT brain significant for pansinusitis, negative for thrombosis Infectious: Aspiration pneumonia vs vasculitis vs fever of unknown origin; persistent white count and continued fever are worrisome for ongoing infection not treated with Zosyn. Patient has history of antiphospholipid syndrome which could be part of it larger vasculitis. Patient's pro-calcitonin is also remain negative which is added to the query on why this patient continues to have fever and leukocytosis. Patient's elevation in bilirubin and alkaline phosphatase and a possible biliary infection. - We will continue Zosyn. - Blood Cultures gram (+) cocci, coag negative staph, Biofire (+) Methicilin resistant gene - Pratt scan with contrast significant for worsening b/l lung consolidation, and mild plerual effusions - Right upper quadrant ultrasound negative for cholecystitis - Start Linezolid Q12 to cover for staph complicated infection - Start Meropenem 2 gm Q8 Cardio: Family history is very suggestive of prolonged QT syndrome. Other etiologies could be due to respiratory arrest due to Suboxone and overdose on Percocet. Patient's ejection fraction was 35-40% with global hypokinesis and the left ventricle. - Decrease from 40 to Lasix 20 mg BID Respiratory: Aspiration pneumonia with evidence on CT; Bilateral infiltrates consistent with aspiration pneumonia. Patient remains borderline hypoxic even with 0.5 FiO2. There is concerning as the patient has made little progress. She does frequently attempt to override the event, especially to reduce sedation. With regards to the patient been extubated, it is worrisome to extubate with FiO2 of 0.5 and a fever of unknown origin. The patient continues to progress will continue to discuss with pulmonary. - Continue to treat aspiration pneumonia; Zosyn - Wean as tolerated - ANCA panel pending - MISAEL negative - Bronchoscopy today with BAL, no plans to extubate patient until respiratory infectious process improves. Abdomen: Prophylactic with famotidine; unsure what to make of the patient's increased bilirubin. If continues may seek additional imaging. Patient appeared to have ileus yesterday likely caused by the high amount of narcotics. Was given Relistor and today bowel sounds are returned. - Stop and hold trickle feeds, as patient continues to not tolerate feeds. - Right upper quadrant ultrasound negative for cholecystitis. Renal: Creatinine has been stable. Urine output adequate - Continue to monitor - Urine analysis negative Hx Hypercoaguable episodes with hx of PE and Portal thrombosis. - Hx of Antiphospholipid antibody. - Lupus anticoagulant pending. - MISAEL negative - Lovenox 90 mg Q12H Lines: Patient has a central line that has been signed off by radiology. Art line placed previously has failed. Status: No current timetable for extubation at discharge GI Prophylaxis: H2 pierce VTE Mechanical Devices: Intermittant Pneumatic CD Resuscitation Status: CPR: Attempt Resuscitation Attending Statement I have seen and examined this patient with the resident physician. Vital signs , labs, imaging have been reviewed. I agree with the assessment and plan above. Please refer to my separately dictated progress note for any modifications to above. Dacia Mora M.D. Pulmonary and Critical Care medicine Pager [phone] Liam Lewis DO Mar 14, 2017 11:15 Dacia Mora MD Mar 16, 2017 08:10
[2017-03-14] MEDS: Linezolid Inj 600 MG in IV Premix 1 EACH IV SCH ×2 (11:20→20:27)
[2017-03-14] MEDS: Meropenem 1 Gm/100 mL NS Minibag Plus IV SCH ×4 (12:26→20:27)
[2017-03-14] MEDS ORDERED: Linezolid Inj 600 MG in IV Premix 1 EACH IV SCH (13:00)
--- NOTE | 2017-03-14 13:06 | NUR ---
NUTRITION FOLLOW-UP: ASSESS: 51 YO F admitted to CCU following cardiac arrest, etiology unknown. 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 She remains intubated and sedated. Enteral feeding on hold due to ileus; patient vomited enteral feeding last evening. Hypothermia protocol has been completed. Pressure support trials continue; however her respiratory status has not significantly improved. Her mentation is significantly improved, however. Bronchoscopy scheduled for today to determine potential cause of infection. PMHX: HTN, PE, splenic cyst, alcohol abuse, chronic pain with opiate use, PE's, hepatic vein thrombosis. LABS: Reviewed. K+ 3.1, Cr 0.45, Glu 107, Total Bili 2.0, Alk Phos 180, PAB 9, Procalcitonin 0.27. MEDS:Reviewed. Relistor, Lasix, Fentanyl. Propofol currently at minimal level providing few calories. GI: BM x 1 today. SKIN: Per Solar Sales Representative And Assessor, gluteal wounds appear improved from yesterday's assessment, denuded tissue is much less erythemic. Intact bulla on R gluteal/thigh fold is flattened and skin has remained intact. L gluteal wound is dark and crusted. Minimal drainage noted. WT: 86.7 kg, BMI 30.0 kg/m2, Admit wt 93.1 kg, IBW 59.1 kg DIET: NPO. ENTERAL FEEDING: (ON HOLD) Jevity 1.5, trophic rate 10 ml/hr. ESTIMATED NEEDS: VENT/BMI Calories: 5732-6247 kcal/day (20-22 kcal/kg BW) Protein: 90-105 g/day (1.5-1.8 g/kg IBW) Fluids: ~2350 ml/day (25 ml/kg) NUTRITION DIAGNOSIS: 1) Inadequate oral intake related to decreased ability to consume sufficient energy as evidenced by current NPO status - PERSISTS. NUTRITION INTERVENTION: 1) Recommend restart enteral feeding, as appropriate. Recommend Jevity 1.5 at 10 mL/hr. Once tolerance established, recommend advance 10 mL every 6 hr. to goal rate 60 ml/hr. At goal TF will provide 1980 kcal, 84 g protein; meeting 100% calorie, 93% of protein needs. 2) Adjust goal rate enteral feeding based on daily propofol. 3) Once enteral feeding advancing to goal and tolerance established, consider adding 1 packets [employer] liquid protein per day to better meet pt's protein needs providing a total of 95 g protein; meeting 100% protein needs. MONITOR/EVALUATE: NPO/vent status, enteral feeding restart / tolerance, wt, GI, labs, POC, nutrition status. Follow per high nutrition risk guidelines.
--- NOTE | 2017-03-14 13:31 | PROG NOTE ---
[address] [address] PROGRESS NOTE PATIENT: ERIC WESLEY : 1965 MR#: [id number] ADMIT: 03/06/2017 JOB ID: [id number] DATE: 03/14/2017 PULMONARY CRITICAL CARE PROGRESS NOTE: The patient is a 51-year-old woman with history of antiphospholipid antibody syndrome status post splenectomy and family history of long QT syndrome presenting on March 06 with cardiac arrest, status post hypothermia protocol, with acute respiratory failure on mechanical ventilation. The patient was seen and evaluated with resident physician, Liam Lewis. Please refer to his separate detailed note for additional information. The following is a brief attending note. INTERVAL HISTORY: Continues to have high fevers although neurologically she continues to improve. REVIEW OF SYSTEMS: Unable to obtain. PHYSICAL EXAMINATION: Vital signs reviewed. T-max of 38.2, FiO2 of 50% and PEEP of 5 cm. General: Intubated, but alert, following commands. Chest: Bilateral coarse crackles. LABORATORIES: Reviewed. WBC 19.5 from 21.4 yesterday. Platelets are going up 512. Chemistry reviewed. Notable for potassium of 3.1. Procalcitonin remains low at 0.27. IMAGING: Chest x-ray shows worsening bilateral patchy areas of consolidation. CT of the chest, abdomen and pelvis was reviewed. Notably in the chest CT she has multilobar consolidation seen bilaterally. These involve the bilateral apices, right middle lobe and lingula and bilateral lower lobes. Head CT shows pansinusitis but no acute intracranial findings. No other acute findings on abdomen and pelvis except for some mild colonic thickening. ASSESSMENT AND RECOMMENDATIONS: 1. Status post cardiac arrest on March 06, completed hypothermia protocol. 2. Complete hypothermia protocol with good neurologic recovery. 3. Acute hypoxic respiratory failure on mechanical ventilation since March 06. 4. History of anti phospholipid antibody syndrome on anticoagulation. 5. Aspiration pneumonia. 6. Fever, SIRS, unexplained. 7. Family history of long QT syndrome. This 51-year-old woman with a complex past medical history, including supposed history of antiphospholipid antibody syndrome with multiple thromboembolic events, on chronic anticoagulation as well as family history of long QT presented with acute cardiac arrest in the field with unknown rhythm. She has completed hypothermia protocol and has had good neurologic recovery but continues to have fevers and now worsening bilateral infiltrates concerning for pneumonia. White count remains elevated and procalcitonin, however, is quite low. Cultures so far are negative except for another blood culture with ? coag-negative Staph versus MRSA. In combination with worsening bilateral infiltrates, I think this is enough indication to pursue a bronchoscopy at this point. We went ahead with bronchoscopy and did bilateral lavages and sent the sample for cultures. I have broadened her antibiotics from Zosyn alone to linezolid and meropenem immediately post bronchoscopy. Depending on bronchoscopy culture results, we can decide if we want to narrow these antibiotics further. Another possibility to consider would be of fungal pneumonia although I do think this is unlikely. If her fever trend and sepsis trend does not improve with this, then we should seriously consider the addition of micafungin. We are going to increase her Lovenox back up to therapeutic dose 90 mg q.12 hours for antiphospholipid antibody syndrome and multiple prior thromboses. She is on appropriate GI prophylaxis. She is doing well on spontaneous breathing trials. but I would not like to extubate her until we have a better handle on this pulmonary process and on sepsis type symptoms. All of this was discussed with her and daughter at the bedside. TIME: Critical care time is 60 minutes.
--- NOTE | 2017-03-14 14:02 | ENDO ---
[address] [address] ENDOSCOPY PROCEDURE PATIENT: ERIC WESLEY : 1965 MR#: [id number] ADMIT: 03/06/2017 JOB ID: [id number] DATE: 03/14/2017 PROCEDURE: Bronchoscopy. PERFORMED BY: Dacia Mora M.D., Pulmonary Medicine. INDICATION: Bilateral pulmonary infiltrates, rule out pneumonia. DESCRIPTION OF PROCEDURE: Informed consent was obtained from the patient's after risks and benefits of the procedure were discussed with him. The patient was on mechanical ventilation during this procedure. She was turned to 100% oxygen prior to the bronchoscopy beginning. She received IV sedation with propofol and fentanyl which were both increased for the procedure. The scope was passed through the ET tube. Additional lidocaine was administered topically into the airways, trachea and bilateral right and left-sided airways were completely inspected and normal in appearance. There were no abnormal secretions or mucosal lesions. We proceeded to do a bronchoalveolar lavage in the right middle lobe. Initially this sample was slightly bloody but a subsequent lavage in a separate trap was done to rule out diffuse alveolar hemorrhage. This showed that the lavage fluid which was initially pinkish in color suggesting bleeding actually cleared more likely to be proximal airway bleeding rather than alveolar bleeding. We also did a lavage on the left in the lingula and this sample once again was faintly pink tinged but not consistent with alveolar hemorrhage. COMPLICATIONS: None. The patient had a lot of coughing during the procedure. SAMPLES: BAL from right middle lobe and lingula, pale pink colored was pooled. FINDINGS: Normal airways. No evidence of alveolar hemorrhage. MEDICATIONS: She was on propofol and fentanyl infusions during the procedure. She received lidocaine about 8 mL. Saline was used for lavage-240 cc. MTDD
--- NOTE | 2017-03-14 14:49 | NUR ---
Inpatient Wound Nurse Patient seen in follow up of gluteal wounds. These wounds continue to improve with consistent use of Mepilex foam dressing with silicone facing. Denuded tissue on R buttock is pink and moist. Intact bulla on R gluteal/thigh fold is flattened and skin has remained intact. L gluteal wound is dark and crusted, size is stabilized. Minimal drainage noted from all wounds. Wounds were cleansed and blotted dry, one Mepilex foam dressing applied to bilateral buttock wounds and one 4x4 Mepilex foam dressing applied to crease wound. Patient appears comfortable on P500 mattress. Unlikely that these are pressure ulcers but have been recorded as such as cautionary measure. Pressure ulcers typically do not progress as blisters and then improve so significantly in 24 hour period. Also, it should be noted, that under R IVJ line Tegaderm, patient's skin was erythemic and crusted in mirrored pattern of Tegaderm contact. Erythemic squares are noted near scapula where ECG electrodes had been placed. Patient and her family deny history of sensitivity, and unlikely that Arctic Sun was in contact with buttocks, but is likely that [place] Sun was in contact with R hip and R buttock/posterior thigh crease. Nursing staff may change dressings PRN. Mepilex sheet foam may be used or bordered Mepilex dressings as long as adhesive borders are kept off denuded areas. CWON will see patient daily for dressing changes.
[2017-03-14] MEDS: 0.9% Sodium Chloride 1,000 ML IV SCH (16:08)
--- NOTE | 2017-03-14 17:18 | NUR ---
Neuro/NG/Nausea/Activity: Opens eyes spontaneously, tracks with eyes, NORWOOD, able to follow commands and attempts to speak. Becomes restless and pulls at restraints at times. NG tube to suction draining green/yellow fluid. Patient continues to be nauseated and retching, Zofran 8mg IVP was administered with good effect. MD notified of continued nausea and concern for Zofran administration with prolonged QTC. Reglan 10mg IVP PRN now available if needed. Continue to hold tube feeds and NS 100mL/hr now infusing for maintenance fluids. Patient was able to sit at EOB, stand and walk in place with PT. Pt able to point at letters on chart and requested pain medication for rib pain. Propofol gtt infusing at 20mcg/kg/min and Fentanyl 50mg/hr. VSS. Frequent rounding in place.
[2017-03-14] MEDS: Norepineph 8,000 mCg/250 mL NS 8,000 MCG in IV Premix 1 EACH IV SCH (17:24)
[2017-03-14] MEDS ORDERED: KCl 40 mEq/100 mL Premix (K 3 - 3.7 & Creat < 2) IV ONE ×2 (17:45→23:45)
--- NOTE | 2017-03-14 19:02 | PCM.PNMED ---
Subjective Date of Service Mar 14, 2017 Subjective With regards to neurological status the patient is doing quite well. She is able to communicate even though she is intubated. She does appear to be tired but did well the SBT. Her infectious workup included a PCR on blood which returned positive for the mecA gene indicating MRSA presence. Currently there is no idea how the patient became positive for MRSA as previous investigation was negative, and there are no obvious signs outside of some early decubitus ulcers. She does have worsening bilateral infiltrates abdomen present since beginning and are felt to be due to aspiration. During ICU rounds this was discussed and patient will go for prolonged to confirm whether this is the source. Exam Vital Signs Vital Sign - Last Date Time Temp Pulse Resp B/P Pulse Ox O2 Delivery O2 Flow Rate FiO2 03/14/17 17:12 Ventilator 03/14/17 17:03 68 140/87 60 03/14/17 16:33 37.4 12 99 Intake and Output 03/13/17 03/13/17 03/14/17 Cumulative From/Thru 15:00 23:00 07:00 03/06/17 15:58 - 03/14/17 06:10 Intake Total 348 ml 1152 ml 957 ml 11421 ml Output Total 900 ml 1600 ml 1580 ml 62737 ml Balance -552 ml -448 ml -623 ml 4586 ml Intake Oral 800 ml 0 ml 800 ml IV Total 348 ml 352 ml 854 ml 62623 ml Tube Feeding 83 ml 577 ml Tube Irrigant 20 ml 280 ml Output Urine Total 900 ml 1600 ml 1500 ml 20069 ml Gastric Drainage Total 80 ml 1555 ml # Bowel Movements 0 1 1 2 Exam General: Moving all 4 extremities cooperative and following commands; up and with physical therapy Cardio: Regular rate and rhythm no murmurs Respiratory: CTA bilaterally with crackles, and some wheezes Abdomen: More Soft, positive bowel tones Extremities: Using all 4 extremities with physical therapy IVs and Medications Medications Reviewed: Medications were reviewed in detail Lab and Diagnostics Result Diagram: 03/14/17 0535 03/14/17 1545 X-Rays, CTs and MRIs Chest x-ray IMPRESSION: Tip of endotracheal tube is 1 cm above the benja, and should be pulled back 3-4 cm. Dictated by: Giovany Modi M.D. on 03/06/2017 at 15:[address] IMPRESSION: No acute intracranial abnormality is not identified on this CT without contrast. Dictated by: Ric Bobby M.D. on 03/06/2017 at 16:27 CTA chest 1. No acute pulmonary embolus. 2. Dependent air space opacities throughout the lungs suspicious for aspiration in the setting of recent cardiac arrest. 3. Bilateral, displaced anterior rib fractures presumably secondary to recent CPR. Dictated by: Sheela Garcia M.D. on 03/06/2017 at 16:[address] 1. No visualized fracture. 2. Pulmonary opacities bilaterally. Please see CT Chest 03/06/17 report for further details. Dictated by: Leticia Maza M.D. on 03/06/2017 at 15:[address] 1. Pulmonary opacities, partially visualized, possibly related to air space disease such as pneumonia or aspiration. 2. Air in the bladder, possibly related to antoine insertion. Other etiologies including infection cannot be excluded. 3. Bilateral rib fractures. Dictated by: Leticia Maza M.D. on 03/06/2017 at 15:59 Chest x-ray IMPRESSION: Central line in good position from a radiographic point of view. No radiographic complication is seen. Other tubes and lines are appropriate. Lungs are clear. Dictated by: Ric Bobby M.D. on 03/06/2017 at 17:51 ROCEDURE: X-RAY CHEST ONE VIEW, PORTABLE ([id number]) IMPRESSION: Improving bilateral pulmonary opacities and pleural effusions. Stable support devices. Dictated by: Bubba Muñoz M.D. on 03/10/2017 at 9:37 . 12-lead ECG EKG 15:46: Prolonged QT with a possible ectopic atrial rhythm; Dr. Xiong reviewed and stated no STEMI Cardiac Echo Impressions Echocardiogram Report Name: ERIC WESLEY MStudy Date: 03/2017 Interpretation Summary The left ventricle is normal in size. There is mild concentric left ventricular hypertrophy. The ejection fraction is estimated to be 35-40%. There is moderate global hypokinesis of the left ventricle. There are no focal wall motion abnormalities. The right ventricle grossly appears normal in size with probable normal systolic function. Right ventricular systolic pressure is estimated to be 18 mmHg plus the clinically estimated CVP which cannot be estimated on this exam. Inspiratory collapse cannot be assessed because of mechanical ventilation, thus CVP cannot be estimated.. No other echocardiographic abnormalities seen. . 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 Currently cause of arrest is unknown but family history is concerning for prolonged QT syndrome. Problem list: 1. Cardiac arrest second to presumed torsades 2. Acute hypoxic respiratory failure 3. Aspiration pneumonia causing sepsis 4. Chronic opioid use 5. Acute encephalopathy 6. Antiphospholipid syndrome Neurological: Patient closing in on her neurologic baseline. This afternoon the patient looked exhausted from SBT and physical therapy. She wished to be re -sedated. -Sedate overnight with propofol Infectious: Aspiration pneumonia with positive mecA gene on PCR suspicious for MRSA infection. Patient's chest CT is worsening. If MRSA is present is either due to her pulmonary infiltrates which were initially from aspiration, or possibly due to skin ulcers on her back. -Stop Zosyn - Start Linezolid Q12 to cover for staph complicated infection - Start Meropenem 2 gm Q8 Cardio: Family history is very suggestive of prolonged QT syndrome. Other etiologies could be due to respiratory arrest due to Suboxone and overdose on Percocet. Patient's ejection fraction was 35-40% with global hypokinesis and the left ventricle. - Decrease from 40 to Lasix 20 mg BID Respiratory: Pulmonary function continues to improve and patient is up walking about with physical therapy while still on the vent. Her SBT went well today. If not for infection could consider extubation. MISAEL negative for vasculitis. Anca still pending -Stop Zosyn and changed to meropenem and linezolid -Bronchoscopy today to establish source of MRSA Abdomen: Continue prophylactics. Patient is a recent short history of obstipation due to narcotics which resolved with Relistor. She was throwing up overnight and for that reason we will hold tube feeds tonight -Hold tube feeds -Monitor for obstipation Renal: Creatinine has been stable. Urine output adequate - Continue to monitor - Urine analysis negative Hx Hypercoaguable episodes with hx of PE and Portal thrombosis. - Hx of Antiphospholipid antibody. - Lupus anticoagulant pending. - MISAEL negative - Lovenox 90 mg Q12H Status: Likely discharge in 1-2 days pending patient's response to new antibiotics and our ability to locate where possible MRSA infection could have come from. GI Prophylaxis: H2 pierce VTE Mechanical Devices: Intermittant Pneumatic CD Resuscitation Status: CPR: Attempt Resuscitation Attending Statement The patient was seen and examined together with on March 14 and I agree with the history, exam findings, and plan as outlined in the note above. I did participate in all aspects of the services provided today, including documentation and the plan of care. We will continue to support her with mechanical ventilation after her cardiac arrest and apparent long QT syndrome. The patient also continues to have intermittent fevers and continues to be treated with IV antibiotics for possible pneumonia. We will await Marck results from her bronchoscopy earlier today as well. Onesimo Cheek DO Mar 14, 2017 19:02 Eagle Perez MD Mar 15, 2017 13:37
[2017-03-15] VITALS (16 sets, daily range): BP systolic 129–158; BP diastolic 63–88; PULSE 56–78; RESP 12–28; O2SAT 92–98
[2017-03-15] MEDS: Albuterol-Ipratropium 3 mL Inhalation Solution NEB SCH ×6 (00:09→20:27)
[2017-03-15] MEDS: Chlorhexidine 0.12% 15 mL Oral Solution MT SCH ×4 (00:18→11:22)
[2017-03-15] MEDS: 0.9% Sodium Chloride 1,000 ML IV SCH ×2 (01:27→11:19)
[2017-03-15] MEDS: fentaNYL 2,500 mCg/250 mL 2,500 MCG in IV Premix 1 EACH IV PRN (03:05)
[2017-03-15] MEDS: Meropenem 1 Gm/100 mL NS Minibag Plus IV SCH ×6 (03:06→20:14)
[2017-03-15 04:29] LABS: BASOPHILS % (AUTO) 0.3 % (0-3); EOSINOPHILS % (AUTO) 0.9 % (0-5); MONOCYTES % (AUTO) 8.5 % (4-12); Mean Corpuscular Hemoglobin 34.2 pg (27.0-35.0); Mean Corpuscular Volume 104.4 fL (81-100); NEUTROPHILS % (AUTO) 72.4 % (40-74); Platelet Count 607 bil/L (150-400)
--- NOTE | 2017-03-15 04:41 | ABG ---
DateTimeAnalyzed 04:34:00 -_ pH ____7.433 - 7.350 7.450 pCO2 ___42.4__ -mmHg 35.0 45.0 pO2 112 -mmHg 69.0 116 HCO3- ___27.8__ -mmol/L 22.0 26.0 ABE ____3.7__ -mmol/L -2.0 2.0 tHb ____7.7__ -g/dL 12.0 18.0 O2Hb ___96.0__ -% COHb ____1.0__ -% 0.0 1.5 MetHb ____0.7__ -% 0.4 1.5 sO2 ___97.7__ -% FIO2 ___50.0__ -% PRVC 12 - PEEP ____5.0__ -cmH2O Set_RR ___12.0__ -b/min Vt __480.0__ -L Drawn By MM - Date/Time Notified____ 04:40:00 -_ Spontaneous_RR ___12.0__ -b/min Oxygen Device 1 VENTILATOR - Notified By MM - Notified Whom DR JOSE - B 761 -mmHg tO2 ___10.6__ -Vol% [facility] test N/A -
[2017-03-15 06:00] LABS: dRVVT 39.5 sec (0.0-47.0)
[2017-03-15] MEDS: LacriLube S.O.P. 3.5 Gm Ophthalmic Ointment BOTH_EYES SCH (07:44)
[2017-03-15] MEDS: Ondansetron 2 mg/mL 2 mL Inj IVPUSH PRN ×2 (07:52→13:25)
[2017-03-15] MEDS: Pantoprazole 4 mg/mL 10 mL Inj IVPUSH SCH ×2 (07:52→16:45)
[2017-03-15] MEDS: Linezolid Inj 600 MG in IV Premix 1 EACH IV SCH ×2 (07:52→20:13)
--- NOTE | 2017-03-15 08:54 | DRSVH ---
PROCEDURE: X-RAY CHEST ONE VIEW, PORTABLE ([id number]) INDICATIONS: intubated TECHNIQUE: One view of the chest was acquired. COMPARISON: [facility], CR, XR CHEST 1VW (PORTABLE), 03/14/2017, 3:28. [facility], CR, XR CHEST 1VW (PORTABLE), 03/13/2017, 2:02. [facility], CR, XR CHEST 1VW (KIMBERLY BLE), 03/12/2017, 7:28. FINDINGS: Surgical changes and devices: Tubes and catheters are in stable and expected positions. Lungs and pleura: No pleural effusions or pneumothorax. Multifocal patchy bilateral mid and lower alysha ng airspace densities are unchanged. Mediastinum: Mediastinal contours appear normal. Heart size is normal. Bones and chest wall: No suspicious bony lesions. Overlying soft tissues appear unremarkable. IMPRESSION: No change in multifocal pneumonia. Continued plain film surveillance is recommended to en sure resolution, and to exclude underlying or central malignancy. Dictated by: Mirna Modi M.D. on 03/15/2017 at 8:53 Approved by: Mirna Modi M.D. on 03/15/2017 at 8:53
--- NOTE | 2017-03-15 10:13 | ABG ---
DateTimeAnalyzed 10:03:29 -_ pH ____7.427 - 7.350 7.450 pCO2 ___46.2__ -mmHg 35.0 45.0 pO2 ___87.5__ -mmHg 69.0 116 HCO3- ___30.4__ -mmol/L 22.0 26.0 ABE ____5.6__ -mmol/L -2.0 2.0 tHb ____8.0__ -g/dL 12.0 18.0 O2Hb ___96.0__ -% COHb ____1.8__ -% 0.0 1.5 MetHb ____0.0__ -% 0.4 1.5 sO2 ___97.7__ -% FIO2 ___50.0__ -% Pressure_Support ____5.0__ -cmH2O PEEP ____5.0__ -cmH2O Vt __409.0__ -L Drawn By NB - Date/Time Notified____ 10:13:00 -_ Spontaneous_RR 16 -b/min Oxygen Device 1 VENTILATOR - Notified By RC - Notified Whom ___PARIMI - K+ ____3.7__ -mmol/L 3.5 5.0 tO2 ___11.0__ -Vol% [facility] test _Positive -
--- NOTE | 2017-03-15 10:48 | PCM.PNMED ---
Subjective Date of Service Mar 15, 2017 Subjective Pulmonary Critical Care Progress Note Hospital day #10 Brief Hx of present illness. 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 Patient received good and nearly immediate CPR in field. Of note patient had just started using a Suboxone patch the same day. Patient is s/p rewarming, and has had cyclic fevers since rewarming protocol began. Now with CXR evidence of b/l pneumonia, and CT evidence of worsening b/l lung consolidations, and pansinusitis. Patient had bronchoscopy with BAL and we await results of lavage fluid cultures.Patient has had increasing bili and alk phos over past 2 days for unknown reasons. Abdominal US was negative for signs of cholecystitis. Overnight: Patient had no more fevers. Some episodes of retching early yesterday amenable with Reglan have not recurred. Trophic feeds remain off for 24 hours now. Bilib slightly improved today 1.6 and Alk phos slightly up at 188 as well as elevated AST 53 today. WBC count continues to improve at 15.0 down from 22. Procalc has been unimpressive todate 0.27. Zosyn for antibiosis total of 8 days. Patients Anticoagulation panel and ANCA are still pending. MISAEL returned negative. Patient continues to be get Furosemid 20 mg BID IV. Procalc has been unimpressive to-date at 0.27. Her CXR this AM showing mixed worsening and improvement of her bilateral opacifications. Neurologically patient is tracking visually and responding to voice commands by grasping and working with PT. ABG pH 7.42, PCO2 46.2, 87.5. Pt now extubated as of now. MISAEL and Lupus anticoagulant returned negative today. It does not appear patient has a hypercoaguable state from antiphospholipid antibody. Exam Vital Signs Vital Sign - Last Date Time Temp Pulse Resp B/P Pulse Ox O2 Delivery O2 Flow Rate FiO2 03/15/17 05:01 67 03/15/17 04:30 37.0 12 133/68 98 Mechanical Ventilator 50 Intake and Output 03/14/17 03/14/17 03/15/17 Cumulative From/Thru 15:00 23:00 07:00 03/06/17 15:58 - 03/15/17 05:45 Intake Total 1331 ml 1970 ml 93319 ml Output Total 1350 ml 475 ml 09859 ml Balance -19 ml 1495 ml 6062 ml Intake Oral 0 ml 800 ml IV Total 1331 ml 1970 ml 63867 ml Tube Feeding 577 ml Tube Irrigant 280 ml Output Urine Total 1100 ml 325 ml 35137 ml Gastric Drainage Total 250 ml 150 ml 1955 ml # Bowel Movements 0 2 Exam General: Sedated and Intubated during exam, alert and responds to verbal commands, patient tracks visually, using alphabet table to spell out words. HEENT: Eyes PERLLA, no erythema, Neck no adenopathy Heart: Regular rate and rhythm no murmurs, S1, S2 present Lungs: CTA bilaterally, mild crackles Abdomen: Soft,non distended, active bowel sounds present Extremities: No edema, pulses are equal b/l Neuro: Sedated but arrousable and motions with hands, able to track visually, working with physical therapy. Skin: Warm, Dry, bilateral skin erosions on buttock, 6 cm linear blister on anterior of left thigh, rash beneath right IJ bandage consistent with tape rash appears improved. IVs and Medications Medications Reviewed: Medications were reviewed in detail Lab and Diagnostics Result Diagram: 03/15/1741903/15/17419 X-Rays, CTs and MRIs Chest x-ray IMPRESSION: Tip of endotracheal tube is 1 cm above the benja, and should be pulled back 3-4 cm. Dictated by: Giovany Modi M.D. on 03/06/2017 at 15:[address] IMPRESSION: No acute intracranial abnormality is not identified on this CT without contrast. Dictated by: Ric Bobby M.D. on 03/06/2017 at 16:27 CTA chest 1. No acute pulmonary embolus. 2. Dependent air space opacities throughout the lungs suspicious for aspiration in the setting of recent cardiac arrest. 3. Bilateral, displaced anterior rib fractures presumably secondary to recent CPR. Dictated by: Sheela Garcia M.D. on 03/06/2017 at 16:[address] 1. No visualized fracture. 2. Pulmonary opacities bilaterally. Please see CT Chest 03/06/17 report for further details. Dictated by: Leticia Maza M.D. on 03/06/2017 at 15:[address] 1. Pulmonary opacities, partially visualized, possibly related to air space disease such as pneumonia or aspiration. 2. Air in the bladder, possibly related to antoine insertion. Other etiologies including infection cannot be excluded. 3. Bilateral rib fractures. Dictated by: Leticia Maza M.D. on 03/06/2017 at 15:59 Chest x-ray IMPRESSION: Central line in good position from a radiographic point of view. No radiographic complication is seen. Other tubes and lines are appropriate. Lungs are clear. Dictated by: Ric Bobby M.D. on 03/06/2017 at 17:51 ROCEDURE: X-RAY CHEST ONE VIEW, PORTABLE ([id number]) IMPRESSION: Improving bilateral pulmonary opacities and pleural effusions. Stable support devices. Dictated by: Bubba Muñoz M.D. on 03/10/2017 at 9:37 . 12-lead ECG EKG 15:46: Prolonged QT with a possible ectopic atrial rhythm; Dr. Xiong reviewed and stated no STEMI Cardiac Echo Impressions Echocardiogram Report Name: ERIC WESLEY MStudy Date: 03/2017 Interpretation Summary The left ventricle is normal in size. There is mild concentric left ventricular hypertrophy. The ejection fraction is estimated to be 35-40%. There is moderate global hypokinesis of the left ventricle. There are no focal wall motion abnormalities. The right ventricle grossly appears normal in size with probable normal systolic function. Right ventricular systolic pressure is estimated to be 18 mmHg plus the clinically estimated CVP which cannot be estimated on this exam. Inspiratory collapse cannot be assessed because of mechanical ventilation, thus CVP cannot be estimated.. No other echocardiographic abnormalities seen. . 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 Currently cause of arrest is unknown but family history is concerning for prolonged QT syndrome. Problem list: 1. Cardiac arrest second to presumed torsades 2. Acute hypoxic respiratory failure 3. Aspiration pneumonia causing sepsis 4. Chronic opioid use 5. Acute encephalopathy 6. Antiphospholipid syndrome Neurological: Patient closing in on her neurologic baseline. This afternoon the patient looked exhausted from SBT and physical therapy. She wished to be re -sedated. -Lighltly sedated during morning exam, is quite interactive neurologically interacting with lorie by motioning and spelling out with words with alphabet. Infectious: Aspiration pneumonia with positive mecA gene on PCR suspicious for MRSA infection. Patient's chest CT is worsening. If MRSA is present is either due to her pulmonary infiltrates which were initially from aspiration, or possibly due to skin ulcers on her back. - WBC trending down 22-->15.0 and no further fevers over last 24 hours - Bacterial cx for coag negative staph likely just contaminant. - CXR 03/15 No change in multifocal pneumonia. - Stopped Zosyn - Continue Linezolid Q12 for now - Continue Meropenem 2 gm Q8 for now Cardio: Family history is very suggestive of prolonged QT syndrome. Other etiologies could be due to respiratory arrest due to Suboxone and overdose on Percocet. Patient's ejection fraction was 35-40% with global hypokinesis and the left ventricle. - Personal and strong family hx of Long QT. Mother suddenly at early age related to cardiac issue. - Stopped Lasix 20 mg BID - Avoiding QT prolonging agents. - Echo with LVEF of 30% and global hypokinesis. - Patient candidate for ICD given her long QT per cardiology consult Dr. Muse - Will touch base again with cardiology regarding if patient requires cath procedure given echo results. - Will obtain prior Echo studies as well as work up for antiphospholipid syndrome from [facility] (see documentation below regarding hypercoaguable state). Respiratory: Pulmonary function continues to improve and patient is up walking about with physical therapy while still on the vent. Her SBT went well today. If not for infection could consider extubation. MISAEL negative for vasculitis. Anca still pending -Stop Zosyn and changed to meropenem and linezolid -Bronchoscopy and BAL yesterday with culture results pending. No signs of diffuse alveolar hemorrhage. No bronchiolar signs of acute infectious process. -ABG this AM pH 7.42, PCO2 46.2, PO2 87.5 on FIO2 50 and PEEP 5 -Patient did well with SBT and patient was extubated this morning. -Swallow eval ordered -Incentive spirometery Abdomen: Continue prophylactics. Patient is a recent short history of obstipation due to narcotics which resolved with Relistor. She was throwing up overnight and for that reason we will hold tube feeds tonight -continue to hold tube feeds pending swallow eval -Monitor for obstipation Renal: Creatinine has been stable. Urine output adequate - Continue to monitor - Urine analysis negative Hx Hypercoaguable episodes with hx of PE and Portal thrombosis. - Per patient on 03/15/2017 and patients daughter. Pt. has hx of Antiphospholipid antibody after worked up at [facility] Anca Petit. The following is a time line of events leading up to this diagnoses. 1.) Patient underwent splenectomy secondary to large splenic cyst by Dr. Kuo at [facility] 2 years ago. 2.) Patient then underwent low back surgery 1.5 years ago at [facility] secondary to back pain related to the mass effect caused by splenic mass. No blood clotting issues had occurred during those procedures. 3. ) Patients first clot occurred in November of 2016 involving the portal vein and patient was treated at [facility] for this. 4.) In December of 2016 just prior to patients discharge from [facility] patient was diagnosed with PE. Patient was placed on warfarin. 5.) Dr. Askew Hematology was consulted and patient was worked up for hypercoaguable state. Patient was found to be positive for Antiphospholipid antibody syndrome. - Here at [facility] Lupus anticoagulant negative. - Here at [facility] MISAEL negative - Will plan to continue patients therapeutic dose of subq lovenox at 90 mg BID given for her hx of clotting inspite of negative workup. - Will inquire with patient on more details to her hx of clots as stated above. - Will obtain prior Echo studies as well as work up for antiphospholipid syndrome from [facility]. Status: Likely discharge in 1-2 days pending patient's response to new antibiotics and our ability to locate where possible MRSA infection could have come from. GI Prophylaxis: H2 pierce VTE Mechanical Devices: Intermittant Pneumatic CD Resuscitation Status: CPR: Attempt Resuscitation Laim Lewis DO Mar 15, 2017 10:48
--- NOTE | 2017-03-15 10:49 | NUR ---
Extubation/Pain Pt placed on 12/01 PST at 0750, tolerated well. Extubated by RT, with this RN at bedside at 1025. Pt now on 9L oxymask with SpO2 99%, RR 21; will titrate O2 down as able. Pt communicating appropriately, no evidence of resp distress at this time. Able to report pain 6/10 to ribs, fentanyl bolus given (while pt was on gtt and intubated this morning). No c/o pain at this time, will continue to assess and treat prn. at bedside. Addendum: 03/15/17 at 1141 by SNOW WELLINGTON RN PT/CORPORATE PLANNER Pt in to see pt, see note. Pt up to chair at 1120. [employer]ATE [employer]NER elpidio done, see note. Pt ice chips and swabs at this time; speech therapist to see pt again tomorrow.
--- NOTE | 2017-03-15 12:10 | PROG NOTE ---
[address] [address] PROGRESS NOTE PATIENT: ERIC WESLEY : 1965 MR#: [id number] ADMIT: 03/06/2017 JOB ID: [id number] DATE: 03/15/2017 PULMONARY CRITICAL CARE PROGRESS NOTE: The patient was seen and evaluated with resident physician, Haim Adams DO. Please refer to his separate detailed note for additional information. The following is a brief attending note. The patient is a 51-year-old woman with history of recurrent thromboembolic events, antiphospholipid antibody syndrome, opiate dependence and family history of long QT syndrome who presented on March 06 with cardiac arrest, completed hypothermia protocol with good neurologic recovery and has remained on the ventilator with respiratory failure since that time. INTERVAL HISTORY: She has been afebrile overnight. She underwent a bronchoscopy yesterday which was uneventful. She is doing very well on a spontaneous breathing trial today on pressure support 5/5. REVIEW OF SYSTEMS: Could not be obtained since she is intubated. PHYSICAL EXAMINATION: Vital signs: T-max 37.4 in the last 24 hours. Afebrile since noon yesterday. FiO2 of 50%. Sats 98% on 5 cm of PEEP. General: Slightly lethargic but opens her eyes, nods in response to questions. Chest: Clear to auscultation bilaterally. Heart: Regular rate and rhythm. LABORATORIES: Reviewed. WBC down to 15 from a peak of 22, a couple of days ago. Hemoglobin is also down to 7.8 with hematocrit of 23. Platelets are up to 607 and this is still trending up. Chemistry reviewed. Procalcitonin was not checked today but yesterday was 0.27. Cultures from BAL negative to date. Imaging shows improvement in worsening bilateral multilobar consolidation. Arterial blood gas this morning shows pH 7.42, pCO2 of 46, pO2 of 87, bicarb of 30. This is on her spontaneous breathing trial. ASSESSMENT AND RECOMMENDATIONS: 1. Cardiac arrest in the field on March 06, completed hypothermia with good neurologic recovery. 2. Acute hypoxic respiratory failure on mechanical ventilation since March 06 -- plan to extubate today. 3. History of antiphospholipid antibody syndrome with recurrent thromboembolic event, on chronic anticoagulation. 4. Aspiration pneumonia -- completed treatment. 5. Multilobar pulmonary infiltrates -- suspected ventilator-associated pneumonia. Pending cultures. 6. Family history of long QT syndrome. RECOMMENDATIONS: This is a 51-year-old woman with a complex past medical history including multiple thromboembolic events and antiphospholipid antibody syndrome, on chronic anticoagulation, as well as a family history of long QT syndrome, narcotic use as an outpatient. Presented with acute unexplained cardiac arrest in the field. She has had good neurologic response with hypothermia protocol. Over the last few days she had been having high fevers, rising white blood cell count and signs of sepsis with worsening pulmonary infiltrates. Yesterday, we did a bronchoscopy to rule out ventilator-associated pneumonia and broaden her antibiotics from Zosyn alone to linezolid plus meropenem. With this, her white blood cell count has come down, she is no longer febrile and her respiratory status seems somewhat more stable. She has done extremely well on a spontaneous breathing trial today, so I am going to go ahead and extubate her. We will continue linezolid and meropenem until we get further results on the bronchoscopy. She is on therapeutic dose Lovenox 90 mg subcu 12 hours. She is on appropriate GI prophylaxis. CRITICAL CARE TIME: 60 minutes.
[2017-03-15] MEDS: HYDROmorphone 0.5 mg/0.5 mL iSecure Syringe IVPUSH PRN ×3 (13:20→21:48)
--- NOTE | 2017-03-15 13:21 | NUR ---
Evaluation completed. Please go to "Notes" then click on "Assessments and Notes" (bottom left corner of screen). Then select appropriate discipline tab on top of screen.
--- NOTE | 2017-03-15 13:21 | NUR ---
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 She was successfully extubated this afternoon; enteral feeding has been on hold for most of her admission due to nausea / vomiting. She failed her swallow evaluation today. Her mentation is significantly improved, however. PMHX: HTN, PE, splenic cyst, alcohol abuse, chronic pain with opiate use, PE's, hepatic vein thrombosis. LABS: Reviewed. Na 145, Cr 0.48, Glu 100, Total Bili 1.6, AST 53, Alk Phos 188, PAB 9. MEDS:Reviewed. Lasix. GI: BM x 1 (03/14). SKIN: Per [employer], gluteal wounds appear improved from last assessment, denuded tissue is much less erythemic. Intact bulla on R gluteal/thigh fold is flattened and skin has remained intact. L gluteal wound is dark and crusted. Minimal drainage noted. WT: 87.1 kg, BMI 30.0 kg/m2, Admit wt 93.1 kg, IBW 59.1 kg DIET: NPO. ENTERAL FEEDING: (ON HOLD) Jevity 1.5, trophic rate 10 ml/hr. ESTIMATED NEEDS: VENT/BMI Calories: 2114-4039 kcal/day (20-22 kcal/kg BW) Protein: 90-105 g/day (1.5-1.8 g/kg IBW) Fluids: ~2350 ml/day (25 ml/kg) NUTRITION DIAGNOSIS: 1) Inadequate oral intake related to decreased ability to consume sufficient energy as evidenced by current NPO status - PERSISTS. 2) Chewing / swallowing difficulties related to recent extubation, as evidenced by inability to pass swallow evaluation today. NUTRITION INTERVENTION: 1) In the event diet unable to be advanced today, strongly recommend initiation of enteral feeding tomorrow to mitigate significantly malnourished status. Recommend Jevity 1.5 at 10 mL/hr. Once tolerance established, recommend advance 10 mL every 6 hr. to goal rate 60 ml/hr. At goal TF will provide 1980 kcal, 84 g protein; meeting 100% calorie, 93% of protein needs. 2) Once enteral feeding advancing to goal and tolerance established, consider adding 1 packets Pro[employer] liquid protein per day to better meet pt's protein needs providing a total of 95 g protein; meeting 100% protein needs. MONITOR/EVALUATE: NPO status, enteral feeding restart / tolerance, wt, GI, labs, POC, nutrition status. Follow per high nutrition risk guidelines.
--- NOTE | 2017-03-15 13:39 | NUR ---
Inpatient Wound Nurse Patient seen for follow up of gluteal wounds. As bordered Mepilex was gently pulled away from patient's skin, exact imprint of dressing was noted to leave an erythemic pattern. Patient again denied history of sensitivity or allergy but her daughter, who was in room at time of wound care, stated that she herself has skin allergies and surmises that patient does, as well, and is unaware. Wounds continue improved, both in size and tissue integrity. Wound in R /buttock/thigh crease is completely closed, crusted, intact and without drainage, no additional dressing was applied after removal. A Covidien Antimicrobial Gentle Border Sacral Foam dressing was applied that covered wounds on bliateral buttocks. This dressing is not on the supply cart and is a sample from [facility] that CWON was given. If effective, more of these will be used on patient. Patient was encouraged to side-lie and assisted into L tilt. CWON will see patient tomorrow and assess efficacy of Covidien dressing.
[2017-03-15] MEDS ORDERED: HYDROmorphone 1 mg/mL Inj IVPUSH ONE (14:10)
[2017-03-15 14:13] LABS: Antiproteinase 3 (PR-3) Abs <3.5 U/mL (0.0-3.5); Perinuclear (P-ANCA) <1:20 titer (Neg:<1:20)
[2017-03-15] MEDS: MetoCLOpramide 5 mg/mL 2 mL Inj IVPUSH PRN ×2 (14:29→20:54)
--- NOTE | 2017-03-15 15:05 | DRSVH ---
Formerly [facility] [address] [place] [address] Echocardiogram Report Name: ERIC WESLEY MStudy Date: 02/27 Height: 66 in Hospital Exam Location: [facility] Weight: 192 lb Gender: Female BSA: 2.0 m2 : 1965 Age: 51 yrs BP: 147/72 mmHg Reason For Study: Cardiac arrest Ordering Physician: HOSPITALIST [facility] Performed By: [facility] Staff Referring Physician: Mounika Summers Interpretation Summary 1. Normal left ventricular size, wall thickness and systolic function. 2. Normal right ventricular size and systolic function 3. No evidence for significant valvular pathology. compared to the previous study, the EF has improved Procedure: A two-dimensional transthoracic echocardiogram with color flow and Doppler was performed in limited views only. The study quality was technically adequate. The patient was in normal sinus rhythm during the exam. Left Ventricle: The left ventricle is normal in size, wall thickness, and systolic function without any focal wall motion abnormalities. No obvious focal wall motion abnormalities. Right Ventricle: The right ventricle is normal in size and function. Mitral Valve: The mitral valve leaflets appear thickened, but open well. There is mild mitral regurgitation. This is unchanged compared to the previous study. Aortic Valve: The aortic valve is trileaflet. The aortic valve opens well. There is trace aortic regurgitation. This is unchanged compared to the previous study. Tricuspid Valve: The tricuspid valve leaflets are thin and pliable. This is unchanged compared to the previous study. There is a trace or physiologic amount of tricuspid regurgitation. Pericardium/ Pleura There is no pericardial effusion. There is no pleural effusion. MMode/2D Measurements & Calculations LVIDd: 5.0 cm LVAd ap4 LVAd ap2 LV mosley. diameter/BSA LVIDs: 3.9 cm (cm/m^2): 2.6 FS: 23.1 % : 24.3 2m : 28.3 cm IVSd: 1.1 cm LVLd ap2 LVPWd: 0.87 cm EDV(MOD-sp2) EDV(sp2-el) : 89.5 ml LV sys. diameter/BSA (cm/m^2): 2.0 Reading Physician:03:04 PM
[2017-03-15] MEDS: Dextrose 5% 0.45% NaCl 1,000 ML IV SCH (16:55)
--- NOTE | 2017-03-15 17:34 | NUR ---
1600-pt. refused I.S. tx. too sleepy. Asked for instruct later today. 1730- family at bedside, not available. will attempt later.
--- NOTE | 2017-03-15 17:43 | PCM.PNMED ---
Subjective Date of Service Mar 15, 2017 Subjective Did well overnight. Extubated today. Doing well with physical therapy. Swallow screen pending. Exam Vital Signs Vital Sign - Last Date Time Temp Pulse Resp B/P Pulse Ox O2 Delivery O2 Flow Rate FiO2 03/15/17 16:20 Supplement Oxygen 03/15/17 16:20 37.4 78 148/88 95 6.00 03/15/17 16:00 18 03/15/17 10:25 50 Intake and Output 03/14/17 03/14/17 03/15/17 Cumulative From/Thru 15:00 23:00 07:00 03/06/17 15:58 - 03/15/17 05:45 Intake Total 1331 ml 1970 ml 74811 ml Output Total 1350 ml 475 ml 12015 ml Balance -19 ml 1495 ml 6062 ml Intake Oral 0 ml 800 ml IV Total 1331 ml 1970 ml 83162 ml Tube Feeding 577 ml Tube Irrigant 280 ml Output Urine Total 1100 ml 325 ml 84823 ml Gastric Drainage Total 250 ml 150 ml 1955 ml # Bowel Movements 0 2 Exam General: Tired appearing female of appropriate age in no acute distress HEENT: PERRLA, EOMI, nonicteric, membranes moist Cardio: Regular rate and rhythm no murmurs rubs or gallops Respiratory: CTA bilaterally, coarse breath sounds Abdomen: Soft, positive bowel sounds, nontender, nondistended Extremities: No edema,sensation intact Psych: Appropriate mood and affect Neuro: CN II through XII grossly intact, sensation intact throughout Skin: No rash IVs and Medications Medications Reviewed: Medications were reviewed in detail Lab and Diagnostics Result Diagram: 03/15/1741903/15/17 042 X-Rays, CTs and MRIs Chest x-ray IMPRESSION: Tip of endotracheal tube is 1 cm above the benja, and should be pulled back 3-4 cm. Dictated by: Giovany Modi M.D. on 03/06/2017 at 15:[address] IMPRESSION: No acute intracranial abnormality is not identified on this CT without contrast. Dictated by: Ric Bobby M.D. on 03/06/2017 at 16:27 CTA chest 1. No acute pulmonary embolus. 2. Dependent air space opacities throughout the lungs suspicious for aspiration in the setting of recent cardiac arrest. 3. Bilateral, displaced anterior rib fractures presumably secondary to recent CPR. Dictated by: Sheela Garcia M.D. on 03/06/2017 at 16:[address] 1. No visualized fracture. 2. Pulmonary opacities bilaterally. Please see CT Chest 03/06/17 report for further details. Dictated by: Leticia Maza M.D. on 03/06/2017 at 15:[address] 1. Pulmonary opacities, partially visualized, possibly related to air space disease such as pneumonia or aspiration. 2. Air in the bladder, possibly related to antoine insertion. Other etiologies including infection cannot be excluded. 3. Bilateral rib fractures. Dictated by: Leticia Maza M.D. on 03/06/2017 at 15:59 Chest x-ray IMPRESSION: Central line in good position from a radiographic point of view. No radiographic complication is seen. Other tubes and lines are appropriate. Lungs are clear. Dictated by: Ric Bobby M.D. on 03/06/2017 at 17:51 ROCEDURE: X-RAY CHEST ONE VIEW, PORTABLE ([id number]) IMPRESSION: Improving bilateral pulmonary opacities and pleural effusions. Stable support devices. Dictated by: Bubba Muñoz M.D. on 03/10/2017 at 9:37 . 12-lead ECG EKG 15:46: Prolonged QT with a possible ectopic atrial rhythm; Dr. Xiong reviewed and stated no STEMI Cardiac Echo Impressions Echocardiogram Report Name: ERIC WESLEY MStudy Date: 03/2017 Interpretation Summary The left ventricle is normal in size. There is mild concentric left ventricular hypertrophy. The ejection fraction is estimated to be 35-40%. There is moderate global hypokinesis of the left ventricle. There are no focal wall motion abnormalities. The right ventricle grossly appears normal in size with probable normal systolic function. Right ventricular systolic pressure is estimated to be 18 mmHg plus the clinically estimated CVP which cannot be estimated on this exam. Inspiratory collapse cannot be assessed because of mechanical ventilation, thus CVP cannot be estimated.. No other echocardiographic abnormalities seen. . 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 Currently cause of arrest is unknown but family history is concerning for prolonged QT syndrome. Problem list: 1. Cardiac arrest second to presumed torsades 2. Acute hypoxic respiratory failure 3. Aspiration pneumonia causing sepsis 4. Chronic opioid use 5. Acute encephalopathy 6. Antiphospholipid syndrome Neurological: Patient is fully awake and communicating well. Infectious: Ongoing pneumonia questionable for coag-negative staph. The mecA gene on PCR yesterday is likely due to staph epidermidis. The Bronch from yesterday is still pending. - CXR 03/15 No change in multifocal pneumonia. - Continue Linezolid Q12 for now - Continue Meropenem 2 gm Q8 for now Cardio: Family history is very suggestive of prolonged QT syndrome. Other etiologies could be due to respiratory arrest due to Suboxone and overdose on Percocet. Patient's ejection fraction was 35-40% with global hypokinesis and the left ventricle. - Personal and strong family hx of Long QT. Mother suddenly at early age related to cardiac issue. - Stopped Lasix 20 mg BID - Avoiding QT prolonging agents. - Echo with LVEF of 30% and global hypokinesis. - Discussed case with Dr. Salazar today who will be unavailable next week to place AICD. States that the patient will need one before going home and that this can be done on Sunday by another EP. Respiratory: Pulmonary function continues to improve and patient patient was extubated today. Vascular workup negative -meropenem and linezolid -extubated this morning. -Swallow eval ordered -Incentive spirometery Abdomen: Continue prophylactics. Patient is a recent short history of obstipation due to narcotics which resolved with Relistor. She was throwing up overnight and for that reason we will hold tube feeds tonight -continue to hold tube feeds pending swallow eval -Monitor for obstipation Renal: Creatinine has been stable. Urine output adequate - Continue to monitor - Urine analysis negative Patient status: Patient will not be able to go home until a AICD is placed which can not happen any sooner than Sunday. GI Prophylaxis: H2 pierce VTE Mechanical Devices: Intermittant Pneumatic CD Resuscitation Status: CPR: Attempt Resuscitation Attending Statement The patient was seen and examined together with on March 15 and I agree with the history, exam findings, and plan as outlined in the note above. I did participate in all aspects of the services provided today, including documentation and the plan of care. She is doing well after extubation. She will have a ICD implanted next several days for her primary V. fib arrest which appears related to a long QT. We will continue to wean her oxygen in the interim and ambulate her. Onesimo Cheek DO Mar 15, 2017 17:43 Eagle Perez MD Mar 16, 2017 14:13
--- NOTE | 2017-03-15 18:48 | NUR ---
Pain Patient complained of back and chest /sternal pain this evening. She stated her pain to be 5-8/10. Patient was medicated with dilauded 1mg IV with pain decreeing to 1-3/10 and below her limit of pain tolerance of 4/10.
[2017-03-15] MEDS ORDERED: Acetaminophen IV 1,000 MG in IV Premix 1 EACH IV ONE (20:05)
[2017-03-15] MEDS: Lidocaine Topical 5% Patch TOPICAL SCH (20:48)
[2017-03-16] VITALS (14 sets, daily range): BP systolic 128–159; BP diastolic 70–89; PULSE 52–69; RESP 18–26; O2SAT 84–100
[2017-03-16] MEDS: Albuterol-Ipratropium 3 mL Inhalation Solution NEB SCH ×6 (00:25→20:00)
[2017-03-16] MEDS: Sodium Chloride LOK Flush 10 mL Syringe IVFLUSH PRN ×4 (02:19→06:23)
[2017-03-16] MEDS: HYDROmorphone 0.5 mg/0.5 mL iSecure Syringe IVPUSH PRN ×6 (02:19→22:35)
[2017-03-16] MEDS: Meropenem 1 Gm/100 mL NS Minibag Plus IV SCH ×6 (02:24→20:40)
[2017-03-16] MEDS: MetoCLOpramide 5 mg/mL 2 mL Inj IVPUSH PRN ×4 (04:44→22:35)
[2017-03-16] MEDS: Dextrose 5% 0.45% NaCl 1,000 ML IV SCH ×2 (04:45→16:19)
--- NOTE | 2017-03-16 05:55 | NUR ---
Oxygenation/Pain/Nausea Pt desaturates while sleeping. Pt maintains SpO2 >93% on 8L Oxymask while upright and awake. While sleeping requires 13L Oxymask. One time IV APAP 1000mg given for muscle/back pain with some relief. LET patch also placed on the patient's middle back. Reglan and Dilaudid given per schedule as soon as available. Pt state her pain remains 7 or 8/10. Pt's FELDT score 0-2/10. Pt looks comfortable. Pt is also able to position herself in bed and turn side to side. Pt needs assistance to boost herself up in bed multiple times throughout the night. Pt's nausea returns just as it is time for her next dose of Reglan IV.
[2017-03-16 06:24] LABS: BASOPHILS % (AUTO) 0.5 % (0-3); EOSINOPHILS % (AUTO) 1.2 % (0-5); MONOCYTES % (AUTO) 7.3 % (4-12); Mean Corpuscular Hemoglobin 34.2 pg (27.0-35.0); Mean Corpuscular Volume 105.4 fL (81-100); NEUTROPHILS % (AUTO) 72.4 % (40-74); Platelet Count 700 bil/L (150-400)
--- NOTE | 2017-03-16 06:45 | PCM.PNMED ---
Subjective Date of Service Mar 16, 2017 Subjective Pt desaturated during the night while sleeping but recovered with increased O2 up to 13L. Pain controlled with current pain regimen. Exam Vital Signs Vital Sign - Last Date Time Temp Pulse Resp B/P Pulse Ox O2 Delivery O2 Flow Rate FiO2 03/16/17 03:56 54 23 93 OxyMask 14.00 03/16/17 03:07 36.7 128/75 03/15/17 10:25 50 Intake and Output 03/15/17 03/15/17 03/16/17 Cumulative From/Thru 15:00 23:00 07:00 03/06/17 15:58 - 03/16/17 05:52 Intake Total 1722 ml 1863 ml 63561 ml Output Total 350 ml 500 ml 10908 ml Balance 1372 ml 1363 ml 8797 ml Intake Oral 50 ml 200 ml 1050 ml IV Total 1672 ml 1663 ml 59259 ml Tube Feeding 577 ml Tube Irrigant 280 ml Output Urine Total 350 ml 500 ml 10676 ml Gastric Drainage Total 1955 ml # Bowel Movements 1 0 3 IVs and Medications Medications Reviewed: Medications were reviewed in detail Lab and Diagnostics Result Diagram: 03/15/17 0420 03/15/17 0420 X-Rays, CTs and MRIs Chest x-ray IMPRESSION: Tip of endotracheal tube is 1 cm above the benja, and should be pulled back 3-4 cm. Dictated by: Giovany Modi M.D. on 03/06/2017 at 15:[address] IMPRESSION: No acute intracranial abnormality is not identified on this CT without contrast. Dictated by: Ric Bobby M.D. on 03/06/2017 at 16:27 CTA chest 1. No acute pulmonary embolus. 2. Dependent air space opacities throughout the lungs suspicious for aspiration in the setting of recent cardiac arrest. 3. Bilateral, displaced anterior rib fractures presumably secondary to recent CPR. Dictated by: Sheela Garcia M.D. on 03/06/2017 at 16:[address] 1. No visualized fracture. 2. Pulmonary opacities bilaterally. Please see CT Chest 03/06/17 report for further details. Dictated by: Leticia Maza M.D. on 03/06/2017 at 15:[address] 1. Pulmonary opacities, partially visualized, possibly related to air space disease such as pneumonia or aspiration. 2. Air in the bladder, possibly related to antoine insertion. Other etiologies including infection cannot be excluded. 3. Bilateral rib fractures. Dictated by: Leticia Maza M.D. on 03/06/2017 at 15:59 Chest x-ray IMPRESSION: Central line in good position from a radiographic point of view. No radiographic complication is seen. Other tubes and lines are appropriate. Lungs are clear. Dictated by: Ric Bobby M.D. on 03/06/2017 at 17:51 ROCEDURE: X-RAY CHEST ONE VIEW, PORTABLE ([id number]) IMPRESSION: Improving bilateral pulmonary opacities and pleural effusions. Stable support devices. Dictated by: Bubba Muñoz M.D. on 03/10/2017 at 9:37 . 12-lead ECG EKG 15:46: Prolonged QT with a possible ectopic atrial rhythm; Dr. Xiong reviewed and stated no STEMI Cardiac Echo Impressions Echocardiogram Report Name: ERIC WESLEY MStudy Date: 03/2017 Interpretation Summary The left ventricle is normal in size. There is mild concentric left ventricular hypertrophy. The ejection fraction is estimated to be 35-40%. There is moderate global hypokinesis of the left ventricle. There are no focal wall motion abnormalities. The right ventricle grossly appears normal in size with probable normal systolic function. Right ventricular systolic pressure is estimated to be 18 mmHg plus the clinically estimated CVP which cannot be estimated on this exam. Inspiratory collapse cannot be assessed because of mechanical ventilation, thus CVP cannot be estimated.. No other echocardiographic abnormalities seen. . 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 Currently cause of arrest is unknown but family history is concerning for prolonged QT syndrome. Cardiac arrest second to presumed torsades; poa; resolving -Likely torsades -Repeat ECHo yesterday showed recovery of ventricular function -Will need AICD placed; likely to happen sunday as cardiology wishes for additional recovery prior to placement Acute hypoxic respiratory failure; poa; improving -Off the vent yesterday after 8-9 days on vent -Continues to require oxygen likely due to ongoing pneumonia -Continue O2 support Aspiration pneumonia causing sepsis; poa; ongoing -Continued on meropenem and linezolid -Incentive spirometry Chronic opioid use -Initially reported that the pt was trying to get off opiates with the use of suboxone. However, she states she was wearing a fentanyl patch -Continue pain that is controlled with dilaudid for now -Investigate further about home opiate use and SW for assessment -Previously obstipated Acute encephalopathy; poa; resolved Reported Antiphospholipid syndrome -Initially reported that she had antiphospholipid syndrome but records from [facility] [place] indicate she was negative -She did have recent hepatic vein thrombosis and DVT with PE; currently appear to be spontaneous -Will change lovenox ot prophylaxis Patient status: Patient will not be able to go home until a AICD is placed which can not happen any sooner than Sunday. GI Prophylaxis: H2 pierce VTE Mechanical Devices: Intermittant Pneumatic CD Resuscitation Status: CPR: Attempt Resuscitation Onesimo Cheek DO Mar 16, 2017 06:44
[2017-03-16] MEDS: Linezolid Inj 600 MG in IV Premix 1 EACH IV SCH ×2 (09:54→20:42)
[2017-03-16] MEDS: Pantoprazole 4 mg/mL 10 mL Inj IVPUSH SCH ×2 (09:54→16:19)
[2017-03-16] MEDS: Lidocaine Topical 5% Patch TOPICAL SCH (09:55)
--- NOTE | 2017-03-16 11:38 | PROG NOTE ---
[address] [address] PROGRESS NOTE PATIENT: ERIC WESLEY : 1965 MR#: [id number] ADMIT: 03/06/2017 JOB ID: [id number] DATE: 03/16/2017 CARDIOLOGY PROGRESS NOTE: SUBJECTIVE: The patient is a 51-year-old female with a history of chronic pain on chronic narcotics with heavy alcohol use and a history of surgical resection of a large splenic cyst in 2014 complicated by abscess with subsequent hepatic vein thrombosis and possible pulmonary embolism. There was some concern for a positive antiphospholipid antibody and she was on warfarin, although apparently this diagnosis has been refuted. She was admitted on March 07, 2017 with an [id number] cardiac arrest with fairly prompt resuscitation and was found to have fairly prominent long QT intervals that on review dated back to 2014. 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 She was intubated in the field and had a probable aspiration pneumonia which has been fairly prolonged. Her initial echocardiogram showed an ejection fraction of 35%-40% with moderate global hypokinesis, although a repeat echocardiogram from yesterday now shows normal LV systolic function. She has had good neurologic recovery and was able to be extubated yesterday, although had some desaturation last night requiring high-dose oxygen, and again had an O2 of a O2 saturation of 84% on room air this morning. Yet, she denies any subjective sense of dyspnea. Her main complaint is of rib pain from the CPR but denies any other chest discomfort. She denies any previous history of syncope or presyncope. She continues to have a cough productive of a sputum although she has not examined it. PHYSICAL EXAMINATION: Mildly obese, middle-aged female sitting comfortably in no distress with oxygen mask. She is afebrile today, with her last febrile episode yesterday at noon at 37.6. Her heart rate has been in the 50s and 60s today and her blood pressure was 155/81 with an O2 saturation at 84% on room air and at 95% on an OxyMask at 6 L. She has had a positive fluid balance over the last two days of around 4 L. Weight was not recorded this morning but her weight yesterday was near her admission weight. Lungs: Coarse breath sounds with some bronchial breath sounds at the left base. No appreciable rales or wheeze. CV: Regular rate and rhythm, without any appreciable murmurs or gallops. There is no obvious JVD, although she has a PICC line in the right jugular. Abdomen: Mildly obese, but soft nondistended nontender. : Espinosa catheter in place. Extremities: Warm, without any edema. LABORATORY: Her white count has incrementally declined from 22,000 on March 13, 2017 down to 13,300 this morning. Her hematocrit has remained relatively steady at 25% with a platelet count of 700, slowly increasing. Her potassium this morning was 3.7 with a BUN of 20 and a creatinine of 0.4. Bilirubin was 1.3 L with a mildly elevated ALT at 39, slightly higher than the last several days but lower compared to admission. Troponins were initially of moderately elevated but now have normalized. Albumin is low at 2.9. ECG: Shows sinus rhythm at 56 beats per minute with prolonged QT of 566 but otherwise is normal. IMPRESSION: 1. 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 I agree with Dr. Muse that this most likely represents a genetic channelopathy and thus her risk of recurrent arrhythmias is relatively high. Given this, an implantable defibrillator is certainly indicated but needs to be deferred until she is completely free of any signs of infection. She continues to have a slight white count with a productive cough and hopefully these will continue to improve. My hope is that she can proceed with defibrillator implantation on Sunday with Dr. Nguyen, but this remains speculative, depending upon her clinical course. Following this she will require one additional hospital day and then can be discharged with followup with Dr. Muse. Once a defibrillator is placed, low-dose beta blockade can be initiated if her blood pressure remains elevated. In the meantime I would avoid long QT prolonging medications and I would strive to maintain her potassium at greater than 4.0. This will be deferred to the hospitalist. 2. Anemia. Likely anemia of chronic disease with thrombocytosis. 3. Transient cardiomyopathy. This has resolved on her most recent echocardiogram. I would continue to monitor her weight. 4. Aspiration pneumonia with persistent hypoxia. Hopefully, this will likewise improved. I would like to see her oxygenating well on room air before implanting her defibrillator. PLAN: 1. Continue to monitor for signs of infection. 2. Avoid long QT prolonging drugs and maintaining a potassium greater than 4.0. 3. Continue to track her weight on a daily basis. 4. I will follow at a distance for now. Once she appears to be free of any infection, scheduling can be pursued for her defibrillator. TIME: I spent 47 minutes reviewing the patient's medical record, examining the patient, answering her and her family's questions.
--- NOTE | 2017-03-16 12:03 | NUR ---
Inpatient Wound Nurse Patient seen for follow up of gluteal wounds. The Covidien Antimicrobial Gentle Border Sacral Foam dressing applied yesterday appears to leave less irritation on patient's periwound skin than the Mepilex brand was causing. Wounds appear improved; R glut blister is decreased in size and tissue is much duller with decreased raw appearance. L blister is closed and without drainage. Patient was encouraged to ambulate and side-lie, avoid lying flat on her back or seated when sensed pain. Patient was reminded not to "scoot" or drage bottom over surfaces to avoid additional damage. CWON will see patient on Sunday, nursing staff may change dressing PRN. The last sample of Covidien Antimicrobial Gentle Border Sacral Foam dressing was left in patient's room. Wound noted to L wrist, 4 cm L x 2 cm W, over anterior radial area, crusted and closed, appears as bruise and friction wound which is assumed to be related to wrist restraints applied when patient was intubated. Patient's daughter stated that patient tried to move the L hand much of the time it was restrained. Wound was cleansed, blotted dry, and then covered with 4x4 bordered Mepilex gauze dressing with silicone facing. This dressing can be changed PRN.
--- NOTE | 2017-03-16 16:19 | PATH ---
SURGICAL PATHOLOGY Attending Physician:Dacia Mora MD CASE STATUS: Signed Out PATIENT NAME: ERIC WESLEY PID: [id number] : 1965 DATE COLLECTED:03/14/2017 00:00 SPECIMEN: Bronchio-Alveolar Lavage Bilateral Pooled CLINICAL HISTORY: Bronchio-Alveolar Lavage Bilateral Pooled ICD-10 code not given FINAL DIAGNOSIS: Bronchoalveolar Lavage Fluid: Negative for malignant cells. Alveolar macrophages and blood cells identified. ICD10: R91.8 GROSS DESCRIPTION: Received fresh on 03/15/2017 is approximately 60 cc of clear pink fluid. Prepared are one cell block and one ThinPrep slide.Vo ICD-9 CODES: CPT CODES: 1: 78138, 91875 Electronically Signed Out Melissa Mojica MD [facility] [address], [place] [address] Technical component performed at [facility], [facility] [address], [place], [address]
--- NOTE | 2017-03-16 16:35 | PROG NOTE ---
[address] [address] PROGRESS NOTE PATIENT: ERIC WESLEY : 1965 MR#: [id number] ADMIT: 03/06/2017 JOB ID: [id number] DATE: 03/16/2017 PULMONARY PROGRESS NOTE: This patient is a 51-year-old woman with history of recurrent thromboembolic events, opiate dependence, and family history of long QT syndrome, who presented to the hospital on March 06 with [id number] cardiac arrest, completed hypothermia with good neurologic recovery. INTERVAL HISTORY: She was extubated yesterday and moved out of the ICU overnight. She has been doing reasonably well, although she says she spent all night coughing and her chest hurts more. She has not been bringing up any sputum. No further fevers. REVIEW OF SYSTEMS: As above. PHYSICAL EXAMINATION: Vital signs reviewed. T-max 37.7, pulse 63, respirations 20, BP 157/80, sats 98% on 6 L Oxymask. General: Sitting in bed, comfortable, answering questions appropriately. Chest is clear to auscultation anteriorly. LABORATORY DATA: Labs reviewed. WBC down to 13 from 15, hemoglobin 8.2, platelets 700. Chemistry also reviewed and within normal limits. CULTURES: Cultures from BAL, so far no growth. IMAGING: Her last chest x-ray was from yesterday and showed improvement in bilateral infiltrates. ASSESSMENT AND RECOMMENDATIONS: 1. Status post cpc-ty-myqltbbi cardiac arrest on March 06, completed hypothermia with good neurologic recovery. 2. Acute hypoxic respiratory failure. Intubated from March 06 until March 15. 3. Recurrent thromboembolic events, on chronic anticoagulation. 4. Multilobar pneumonia - improving. 5. Sepsis - improving. 6. Family history of long QT syndrome. A 51-year-old woman with complex past medical history described above, who was extubated yesterday and has moved out of the ICU. With regards to pulmonary infiltrates, these seem to be improving on linezolid plus meropenem but we really have not identified an organism. Her white blood cell count and fever curve have all improved with broadening antibiotics, so I think we were dealing with sepsis, but once again, it would be good to have a growth on bronchoscopy cultures that confirms this. Spoke with Cardiology who is tentatively planning a defibrillator placement on Sunday as long as we are confident that she is free of infection. I would recommend repeating a chest x-ray over the weekend to ensure that her infiltrates are continuing to improve. She is on therapeutic dose Lovenox 90 mcg subcu q.12 h. She is on 6 L oxygen and stable from a respiratory standpoint, working with Physical Therapy. I am on-call over the weekend and will check back on her. I will put in for a chest x-ray, as well over the weekend.
--- NOTE | 2017-03-16 18:41 | NUR ---
Pain/QTc/Nausea Pt reporting pain in the ribs/chest/back that increases with coughing/deep breathing, Pt given PRN 1mg IV dilaudid ~Q4 throughout shift which Pt reported as effective. Pt encouraged to continue doing deep breathing/coughing exercises as tolerated while bracing chest. Pt's QTc increased to 566 on EKG this am per semiconductor lab technician, MD made aware, PRN zofran had already been D/C'd and replaced with reglan prior to this shift. Pt reporting nausea throughout shift, given PRN reglan ~Q6 which Pt reported as effective for ~2 hours. Pt also started on a puree diet after Pt seen by speech therapy today. Pt tolerating PO intake and reported that nausea slightly improved since resuming PO intake.
[2017-03-17] VITALS (13 sets, daily range): BP systolic 148–172; BP diastolic 82–90; PULSE 59–71; RESP 18–24; O2SAT 88–96
[2017-03-17] MEDS: Albuterol-Ipratropium 3 mL Inhalation Solution NEB SCH ×7 (01:00→22:56)
[2017-03-17] MEDS: HYDROmorphone 0.5 mg/0.5 mL iSecure Syringe IVPUSH PRN ×5 (02:18→22:59)
[2017-03-17] MEDS: MetoCLOpramide 5 mg/mL 2 mL Inj IVPUSH PRN ×3 (02:18→23:47)
[2017-03-17 03:01] LABS: BASOPHILS % (AUTO) 0.3 % (0-3); EOSINOPHILS % (AUTO) 0.8 % (0-5); MONOCYTES % (AUTO) 8.1 % (4-12); Mean Corpuscular Hemoglobin 34.5 pg (27.0-35.0); Mean Corpuscular Volume 104.4 fL (81-100); NEUTROPHILS % (AUTO) 69.8 % (40-74); Platelet Count 762 bil/L (150-400)
[2017-03-17 03:27] LABS: Magnesium 1.9 mg/dL (1.6-2.6)
[2017-03-17] MEDS: Meropenem 1 Gm/100 mL NS Minibag Plus IV SCH ×6 (03:45→20:11)
[2017-03-17] MEDS: Dextrose 5% 0.45% NaCl 1,000 ML IV SCH ×2 (06:45→20:26)
--- NOTE | 2017-03-17 06:51 | NUR ---
Respiratory/Pain a/o x3, o2 via NC @ 6L. SPO2 decreased into low/mid 90's, neb treatment given and oxymask applied throughout NOC. Pt. able to maintain SPO2 in upper 80's to 90's. C/O intermittent pain in lateral chest and back and nausea. Relieved with position changes, splinting, and 1mg. Dilauded given every 4 hours, prn. Up to BSC, with 2 person assist - tolerated well and maintained SPO2. Moderate formed BM. Resting comfortably, with eyes closed after receiving medication/s. Report given to on coming RN.
[2017-03-17] MEDS: Lidocaine Topical 5% Patch TOPICAL SCH (08:30)
--- NOTE | 2017-03-17 08:35 | DRSVH ---
PROCEDURE: X-RAY CHEST ONE VIEW, PORTABLE ([id number]) INDICATIONS: pneumonia TECHNIQUE: One view of the chest was acquired. COMPARISON: [facility], CR, XR CHEST 1VW (PORTABLE), 03/15/2017, 4:46. [facility], CR, XR CHEST 1VW (PORTABLE), 03/14/2017, 3:28. FINDINGS: Surgical changes and devices: Internal jugular central line from right sided approach extends into th e distal SVC. Lungs and pleura: No pleural effusions or pneumothorax. Lungs are abnormal with patchy pneumonia pa ttern most dense at the retrocardiac left lower lobe. Mediastinum: Mediastinal contours appear normal. Heart size is normal. Bones and chest wall: No suspicious bony lesions. Overlying soft tissues appear unremarkable. IMPRESSION: Dense left lower lobe pneumonia pattern, patchy additional pneumonia elsewhere, central l ine remains in normal position, endotracheal tube has been removed. Dictated by: Chandra Aguero M.D. on 03/17/2017 at 8:33 Approved by: Chandra Aguero M.D. on 03/17/2017 at 8:34
[2017-03-17] MEDS: Linezolid Inj 600 MG in IV Premix 1 EACH IV SCH ×2 (08:43→20:10)
[2017-03-17] MEDS: Pantoprazole 4 mg/mL 10 mL Inj IVPUSH SCH ×2 (08:44→16:25)
--- NOTE | 2017-03-17 13:02 | NUR ---
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 She was successfully extubated 03/15; enteral feeding was on hold for most of her admission due to nausea / vomiting. She failed her first swallow evaluation; diet advanced to pureed yesterday. Today is the first day that she feels that her nausea is improved with PO intake. ICD placement planned for Sunday. PMHX: HTN, PE, splenic cyst, alcohol abuse, chronic pain with opiate use, PE's, hepatic vein thrombosis. LABS: Reviewed. K+ 3.4, Cr 0.41, Glu 115, ALT 46, Alk Phos 173, Alb 2.9. MEDS:Reviewed. GI: BM x 1 today. SKIN: Per [facility], wounds appear improved. R glut blister is decreased in size and tissue is much duller with decreased raw appearance. L blister is closed and without drainage. WT: 90.95 kg, BMI 32.0 kg/m2, Admit wt 93.1 kg, IBW 59.1 kg DIET: Pureed. Minimal PO intake since admission x 11 D, improved today with diet advance. ENTERAL FEEDING: (DISCONTINUED) Jevity 1.5, trophic rate 10 ml/hr. ESTIMATED NEEDS: BMI Calories: 5310-2274 kcal/day (20-22 kcal/kg BW) Protein: 90-105 g/day (1.5-1.8 g/kg IBW) Fluids: ~2350 ml/day (25 ml/kg) NUTRITION DIAGNOSIS: 1) Inadequate oral intake related to decreased ability to consume sufficient energy as evidenced by current NPO status - IMPROVED. 2) Chewing / swallowing difficulties related to recent extubation, as evidenced by inability to pass swallow evaluation today - IMPROVED. NUTRITION INTERVENTION: 1) Will add supplements to trays to mitigate further malnutrition. MONITOR/EVALUATE: Diet advance / tolerance, PO intake, wt, GI, labs, POC, nutrition status. Follow per high nutrition risk guidelines.
[2017-03-17] MEDS: oxyCODONE-Acetamin 5-325 mg Tablet PO PRN ×2 (13:56→20:10)
--- NOTE | 2017-03-17 14:16 | PCM.PNMED ---
Subjective Date of Service Mar 17, 2017 Subjective She is a little weaker today. She still on 5 L of oxygen not really having much of a cough. She is having a lot of chest pain with coughing especially. Some with movement and position changes. No palpitations. She denies any nausea or diarrhea. She still has a Antoine catheter in. No overnight events noted Exam Vital Signs Vital Sign - Last Date Time Temp Pulse Resp B/P Pulse Ox O2 Delivery O2 Flow Rate FiO2 03/17/17 12:44 36.9 69 20 148/82 89 Nasal Cannula 6.00 03/15/17 10:25 50 Intake and Output 03/16/17 03/16/17 03/17/17 Cumulative From/Thru 15:00 23:00 07:00 03/06/17 15:58 - 03/17/17 06:48 Intake Total 1723 ml 1506 ml 43931 ml Output Total 500 ml 350 ml 06487 ml Balance 1223 ml 1156 ml 74985 ml Intake Oral 350 ml 200 ml 1600 ml IV Total 1373 ml 1306 ml 03782 ml Tube Feeding 577 ml Tube Irrigant 280 ml Output Urine Total 500 ml 350 ml 18776 ml Gastric Drainage Total 1955 ml # Bowel Movements 1 4 Exam Alert and oriented -3, no distress. Fluent speech Anicteric sclera. Lungs are clear with normal rate and effort Heart is regular without murmur gallop or rub Abdomen soft nontender, flat Extremities are free of edema. Skin is free of rash or lesions. She is on oxygen mask. IVs and Medications Medications Reviewed: Medications were reviewed in detail Lab and Diagnostics Result Diagram: 03/17/17 0240 03/17/17 0240 X-Rays, CTs and MRIs Chest x-ray IMPRESSION: Tip of endotracheal tube is 1 cm above the benja, and should be pulled back 3-4 cm. Dictated by: Giovany Modi M.D. on 03/06/2017 at 15:[address] IMPRESSION: No acute intracranial abnormality is not identified on this CT without contrast. Dictated by: Ric Bobby M.D. on 03/06/2017 at 16:27 CTA chest 1. No acute pulmonary embolus. 2. Dependent air space opacities throughout the lungs suspicious for aspiration in the setting of recent cardiac arrest. 3. Bilateral, displaced anterior rib fractures presumably secondary to recent CPR. Dictated by: Sheela Garcia M.D. on 03/06/2017 at 16:[address] 1. No visualized fracture. 2. Pulmonary opacities bilaterally. Please see CT Chest 03/06/17 report for further details. Dictated by: Leticia Maza M.D. on 03/06/2017 at 15:[address] 1. Pulmonary opacities, partially visualized, possibly related to air space disease such as pneumonia or aspiration. 2. Air in the bladder, possibly related to antoine insertion. Other etiologies including infection cannot be excluded. 3. Bilateral rib fractures. Dictated by: Leticia Maza M.D. on 03/06/2017 at 15:59 Chest x-ray IMPRESSION: Central line in good position from a radiographic point of view. No radiographic complication is seen. Other tubes and lines are appropriate. Lungs are clear. Dictated by: Ric Bobby M.D. on 03/06/2017 at 17:51 ROCEDURE: X-RAY CHEST ONE VIEW, PORTABLE ([id number]) IMPRESSION: Improving bilateral pulmonary opacities and pleural effusions. Stable support devices. Dictated by: Bubba Muñoz M.D. on 03/10/2017 at 9:37 . 12-lead ECG EKG 15:46: Prolonged QT with a possible ectopic atrial rhythm; Dr. Xiong reviewed and stated no STEMI Cardiac Echo Impressions Echocardiogram Report Name: ERIC WESLEY MStudy Date: 03/2017 Interpretation Summary The left ventricle is normal in size. There is mild concentric left ventricular hypertrophy. The ejection fraction is estimated to be 35-40%. There is moderate global hypokinesis of the left ventricle. There are no focal wall motion abnormalities. The right ventricle grossly appears normal in size with probable normal systolic function. Right ventricular systolic pressure is estimated to be 18 mmHg plus the clinically estimated CVP which cannot be estimated on this exam. Inspiratory collapse cannot be assessed because of mechanical ventilation, thus CVP cannot be estimated.. No other echocardiographic abnormalities seen. . 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 Currently cause of arrest is unknown but family history is concerning for prolonged QT syndrome. Cardiac arrest second to presumed torsades and long QT syndrome; poa; stable -Likely torsades -Repeat ECHo yesterday showed recovery of ventricular function -Will need AICD placed; likely to happen sunday as cardiology wishes for additional recovery prior to placement Acute hypoxic respiratory failure; poa; improving. -Off the vent yesterday after 8-9 days on vent -Continues to require oxygen likely due to ongoing pneumonia -Continue O2 support She continues to require about 5 L of oxygen. A repeat chest x-ray indicates a persistent dense right lower lobe consolidation. Aspiration pneumonia causing sepsis; poa; improving. -Continued on meropenem and linezolid -Incentive spirometry Chronic opioid dependence, POA and stable. -Initially reported that the pt was trying to get off opiates with the use of suboxone. However, she states she was wearing a fentanyl patch -Continue pain that is controlled with dilaudid for now -Investigate further about home opiate use and SW for assessment -Previously obstipated Muscular skeletal chest pain, POA and active. This relates to her CPR and presumed rib fractures. We will continue propofol and add oral pain medications. Acute encephalopathy; poa; resolved Remote pulmonary embolism and portal vein thrombosis. Patient status: Patient will not be able to go home until a AICD is placed which can not happen any sooner than Sunday. GI Prophylaxis: H2 pierce VTE Mechanical Devices: Intermittant Pneumatic CD Resuscitation Status: CPR: Attempt Resuscitation Eagle Perez MD Mar 17, 2017 14:15
--- NOTE | 2017-03-17 19:09 | NUR ---
Pain/Activity Pt continues to report pain in ribs, predominantly in her back, Pt given PRN dilaudid Q4 which Pt reports as effective for a few hours, MD increased frequency of dilaudid to Q2 and added PRN percocet to eMAR. RN spoke with Pt about using PO pain medication and saving IV dilaudid as back up for breakthrough pain. Pt received PO pain medication and able to work with PT, Pt requested breakthrough IV dilaudid afterwards which she reported as effective. Pt sat on edge of bed for meals and was up to BR with min assist.
[2017-03-18] VITALS (12 sets, daily range): BP systolic 144–186; BP diastolic 81–95; PULSE 60–70; RESP 18–24; O2SAT 90–99
[2017-03-18] MEDS: oxyCODONE-Acetamin 5-325 mg Tablet PO PRN ×5 (02:29→22:09)
[2017-03-18] MEDS: Albuterol-Ipratropium 3 mL Inhalation Solution NEB SCH ×5 (04:00→20:26)
[2017-03-18] MEDS: Meropenem 1 Gm/100 mL NS Minibag Plus IV SCH ×6 (05:19→20:06)
--- NOTE | 2017-03-18 06:51 | NUR ---
Activity/Pain Remains A/O, increase activity this shift. OOB to BSC, 1 PA to manage lines. Continues to exp. pain that is generalized in back and lateral chest regions. Scheduled Percocet, with Dilaudid for breakthrough pain. Pt. experienced 2 episodes of what she described as waking up with a panic attack, unable to catch breath. VSS, no change in respiratory status was associated, reorientation quickly. Tele: in 60s. Report given to on coming RN.
[2017-03-18] MEDS: Lidocaine Topical 5% Patch TOPICAL SCH (07:34)
[2017-03-18] MEDS: Linezolid Inj 600 MG in IV Premix 1 EACH IV SCH ×2 (07:48→20:07)
[2017-03-18] MEDS: Pantoprazole 4 mg/mL 10 mL Inj IVPUSH SCH ×2 (07:48→16:49)
[2017-03-18] MEDS: Nystatin 100,000 Unit/Gm 15 Gm Powder TOPICAL SCH ×2 (09:13→20:07)
[2017-03-18] MEDS: Dextrose 5% 0.45% NaCl 1,000 ML IV SCH (10:46)
[2017-03-18] MEDS: HYDROmorphone 0.5 mg/0.5 mL iSecure Syringe IVPUSH PRN ×3 (10:58→20:08)
--- NOTE | 2017-03-18 11:44 | PCM.PNMED ---
Subjective Date of Service Mar 18, 2017 Subjective She is doing better. She was able to ambulate with physical therapy on oxygen today. Her strength is improving. Mentally she is feeling very good and focus. She denies confusion. No nausea. No abdominal pain or chest pain. No diarrhea. Presumptive ICD placement on Sunday or Sunday depending on schedule. No overnight events noted. Exam Vital Signs Vital Sign - Last Date Time Temp Pulse Resp B/P Pulse Ox O2 Delivery O2 Flow Rate FiO2 03/18/17 10:09 70 03/18/17 07:46 92 Nasal Cannula 6.00 03/18/17 07:42 36.7 24 166/95 03/17/17 22:57 Intake and Output 03/17/17 03/17/17 03/18/17 Cumulative From/Thru 15:00 23:00 07:00 03/06/17 15:58 - 03/18/17 05:24 Intake Total 1575 ml 1503 ml 69639 ml Output Total 1050 ml 750 ml 19005 ml Balance 525 ml 753 ml 67991 ml Intake Oral 350 ml 200 ml 2150 ml IV Total 1225 ml 1303 ml 09528 ml Tube Feeding 577 ml Tube Irrigant 280 ml Output Urine Total 1050 ml 750 ml 09768 ml Gastric Drainage Total 1955 ml # Bowel Movements 0 4 Exam Alert and oriented -3, no distress. Fluent speech Anicteric sclera. Lungs are clear with normal rate and effort Heart is regular without murmur gallop or rub Abdomen soft nontender, flat Extremities are free of edema. Skin is free of rash or lesions. IVs and Medications Medications Reviewed: Medications were reviewed in detail Lab and Diagnostics Result Diagram: 03/17/17 02403/17/17 0240 X-Rays, CTs and MRIs Chest x-ray IMPRESSION: Tip of endotracheal tube is 1 cm above the benja, and should be pulled back 3-4 cm. Dictated by: Giovany Modi M.D. on 03/06/2017 at 15:[address] IMPRESSION: No acute intracranial abnormality is not identified on this CT without contrast. Dictated by: Ric Bobby M.D. on 03/06/2017 at 16:27 CTA chest 1. No acute pulmonary embolus. 2. Dependent air space opacities throughout the lungs suspicious for aspiration in the setting of recent cardiac arrest. 3. Bilateral, displaced anterior rib fractures presumably secondary to recent CPR. Dictated by: Sheela Garcia M.D. on 03/06/2017 at 16:[address] 1. No visualized fracture. 2. Pulmonary opacities bilaterally. Please see CT Chest 03/06/17 report for further details. Dictated by: Leticia Maza M.D. on 03/06/2017 at 15:[address] 1. Pulmonary opacities, partially visualized, possibly related to air space disease such as pneumonia or aspiration. 2. Air in the bladder, possibly related to antoine insertion. Other etiologies including infection cannot be excluded. 3. Bilateral rib fractures. Dictated by: Leticia Maza M.D. on 03/06/2017 at 15:59 Chest x-ray IMPRESSION: Central line in good position from a radiographic point of view. No radiographic complication is seen. Other tubes and lines are appropriate. Lungs are clear. Dictated by: Ric Bobby M.D. on 03/06/2017 at 17:51 ROCEDURE: X-RAY CHEST ONE VIEW, PORTABLE ([id number]) IMPRESSION: Improving bilateral pulmonary opacities and pleural effusions. Stable support devices. Dictated by: Bubba Muñoz M.D. on 03/10/2017 at 9:37 . 12-lead ECG EKG 15:46: Prolonged QT with a possible ectopic atrial rhythm; Dr. Xiong reviewed and stated no STEMI Cardiac Echo Impressions Echocardiogram Report Name: ERIC WESLEY MStudy Date: 03/2017 Interpretation Summary The left ventricle is normal in size. There is mild concentric left ventricular hypertrophy. The ejection fraction is estimated to be 35-40%. There is moderate global hypokinesis of the left ventricle. There are no focal wall motion abnormalities. The right ventricle grossly appears normal in size with probable normal systolic function. Right ventricular systolic pressure is estimated to be 18 mmHg plus the clinically estimated CVP which cannot be estimated on this exam. Inspiratory collapse cannot be assessed because of mechanical ventilation, thus CVP cannot be estimated.. No other echocardiographic abnormalities seen. . 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 Currently cause of arrest is unknown but family history is concerning for prolonged QT syndrome. #. Cardiac arrest second to presumed torsades and long QT syndrome; poa; stable -Likely torsades -Repeat ECHo yesterday showed recovery of ventricular function -Will need AICD placed; likely to happen sunday or Sunday as cardiology wishes for additional recovery prior to placement #. Acute hypoxic respiratory failure; poa; improving. -Off the vent yesterday after 8-9 days on vent -Continues to require oxygen likely due to ongoing pneumonia -Continue O2 support She continues to require about 5 L of oxygen. A repeat chest x-ray indicates a persistent dense right lower lobe consolidation. We will continue to wean oxygen and treat her pneumonia. #. Aspiration pneumonia causing sepsis; poa; improving. -Continued on meropenem and linezolid -Incentive spirometry #. Chronic opioid dependence, POA and stable. -Initially reported that the pt was trying to get off opiates with the use of suboxone. However, she states she was wearing a fentanyl patch -Continue pain that is controlled with dilaudid for now -Investigate further about home opiate use and SW for assessment -Previously obstipated #. Muscular skeletal chest pain, POA and active. This relates to her CPR and presumed rib fractures. We will continue propofol and add oral pain medications. #. Acute encephalopathy; poa; resolved #. Remote pulmonary embolism and portal vein thrombosis. No further treatment. Patient status: She is discharged home in next 2-3 days pending resolution of ICD implantation and continued progress with her breathing. GI Prophylaxis: H2 pierce VTE Mechanical Devices: Intermittant Pneumatic CD Resuscitation Status: CPR: Attempt Resuscitation Eagle Perez MD Mar 18, 2017 11:44
[2017-03-18] MEDS ORDERED: 0.9% Sodium Chloride 250 ML ONE (12:17)
--- NOTE | 2017-03-18 15:20 | CONS ---
[address] [address] CONSULTATION REPORT PATIENT: ERIC WESLEY : 1965 MR#: [id number] ADMIT: 03/06/2017 JOB ID: [id number] DATE OF SERVICE: 03/18/2017 HISTORY OF PRESENT ILLNESS: The patient is a 51-year-old woman, with no prior cardiac history, admitted on March 15 following a cardiac arrest. She was at home on the toilet when her heard her fall, began CPR, and called paramedics. She received a shock from an AED. She was unresponsive initially. She was intubated and went through hypothermia protocol. She has made a good neurologic recovery and is awake, alert, and appropriate but amnestic for the events surrounding her cardiac arrest. She was found on this admission and on review to have a prolonged QT, felt to be the etiology of her cardiac arrest. She has not previously had any syncope or presyncopal episodes. There is a family history of sudden in her mother at age 21, and a granddaughter is monitored for a long QT syndrome. 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 There has been some discrepant information as to whether or not she has a coagulopathy. She has been on chronic pain medicines for her chronic back pain. She has history of hypertension. She has smoked cigarettes. There is no history of diabetes. There is no history of vascular disease. MEDICATIONS PRIOR TO ADMISSION: Per note from Chloe, have been: 1. Warfarin alternating 67.5 mg daily. 2. Oxycodone 5 mg 1-2 tablets twice a day. 3. Ultram 50 mg 1-2 tablets every 8 hours as needed. 4. Simvastatin 20 mg daily. 5. Lisinopril 20 mg daily. 6. Aspirin 160 mg daily. ALLERGIES: None known. FAMILY HISTORY: As above. SOCIAL HISTORY: , accompanied by , present during interview. HOSPITAL COURSE: The patient's post arrest course complicated by aspiration pneumonia, rib fractures, respiratory insufficiency. She has been followed by pulmonary hospitalists and Cardiology and making slow improvement. PHYSICAL EXAMINATION: Shows a pleasant, alert woman, uncomfortable due to chronic back pain and acute rib pain. She is able to sit up and to walk with assistance currently. There is an IJ catheter in the right neck. No JVD. No conjunctival pallor or icterus. Breath sounds diminished with rales at both bases. Heart rhythm regular without murmurs, gallops, or rubs. Abdomen is obese with surgical scars. There is trace peripheral edema. Neurologic is grossly intact. Labs and x-rays, EKGs and current previous hospital and outpatient records are reviewed. IMPRESSION: 1. Status post cardiac arrest, presumed ventricular fibrillation secondary to familial prolonged QT syndrome. 2. Post arrest rib fracture and pain. 3. Aspiration pneumonia, currently on antibiotics. 4. Status post splenectomy. 5. History of pulmonary and portal vein thromboemboli, on anticoagulation with warfarin, with possible coagulopathy. RECOMMENDATIONS: I spoke with the patient and her regarding management of her cardiac arrest and prolonged QT syndrome. Permanent defibrillator implantation is recommended, with a dual-chamber pacing to enable appropriate beta blockade and defibrillator therapy for protection from recurrent cardiac arrest. The procedures, risks, and potential complications are discussed. At this point I would give her another day or two to recover from her sepsis and pneumonia, monitor her cardiac and pulmonary status, and then proceed with device implantation prior to discharge. I spent an hour and 15 minutes with the patient and her and in reviewing her records.
--- NOTE | 2017-03-18 17:44 | NUR ---
Social Work- Continued D/C Planning Data: Pt is on day 12 of hospitalization for Cardiac arrest. Pt discussed in multidisciplinary rounds, pt to receive AICD this week. PT has cleared pt for home, pt ambulated 250 feet. SW to see pt for CD assessment. SW met with pt and family at bedside. Pt confirms that her will transport home at d/c. Pt may require home O2 or nebulizers. Assessment: Pt who is independent at baseline. Plan: Pt to d/c home with her to transport via POV. No anticipate d/c needs but pt may require home O2 or nebulizers. Diamond De Los Santos MSW
--- NOTE | 2017-03-18 17:47 | NUR ---
Social Work- Chemical Dependency Assessment Current Circumstances/Reason for Referral: Pt has history of alcohol use, SW asked to assess pt. SW met with pt, , and daughter at bedside. Pt declined having at daughter leave the room for this assessment. History of Substance Use: Pt has been drinking for approximately 20 years. Pt's drinking habits varies, ranges from drinking 2-3 times per week to drinking only on weekends. Pt reports drinking between 3-4 vodka sodas each sitting. Pt denies any other substance use. History of Treatment Programs: Pt has no hx of inpatient or outpt tx. Family History: Pt is unsure of family history, thinks maybe her grandfather. History of Sobriety and Supports: Pt's family is identified as the primary support. Pt has experienced two periods of sobriety, once because she had to care for her elderly parents and another because it was causing family drama. Pt could not recall how long she was sober or what prompted her to drink again. Pt reports she has never been concerned about her drinking until now. Patients Perception of use: Pt is very motivated to stop drinking and is planning on removing etoh from her home. Pt's family is supportive of pt's sobriety. Pt expresses no concerns related to sobriety and declined outpt CD resources and [facility]. Suicide Risk assessment: Pt denies SI or HI at this time. No reported hx of depression or anxiety. Recommendations for referral and follow up: Pt is confident that she will stop drinking with her family's support. Declined outpt CD resources and [facility]. Encouraged her to contact [employer] if she needs additional support. Pt confirms her will transport home. No additional needs. Diamond De Los Santos, [employer]
--- NOTE | 2017-03-18 19:29 | NUR ---
Wendie Pt continues to have vaginal bleeding soiling ~2 continence pads per shift, spoke with , H/H ordered which came back at ., warfarin dosing on hold until tomorrow. Addendum: 03/18/17 at 1933 by BETY LENNON RN This note was written on the wrong Pt.
--- NOTE | 2017-03-18 19:34 | NUR ---
BP This is the actual note intended for this Pt for this shift. Pt's BP slowly trending up throughout shift, BP 186/91 this afternoon, Pt verbalized that she takes lisinopril and HCTZ at home, made aware, HCTZ and lisinopril ordered, oncoming KAT RN made aware.
[2017-03-18] MEDS ORDERED: KCl 40 mEq/100 mL (CENTRAL) 40 MEQ in IV Premix 1 EACH IV ONE (20:05)
[2017-03-18] MEDS: Sodium Chloride LOK Flush 10 mL Syringe IVFLUSH PRN (20:08)
[2017-03-18] MEDS: MetoCLOpramide 5 mg/mL 2 mL Inj IVPUSH PRN (20:28)
[2017-03-19] VITALS (9 sets, daily range): BP systolic 156–188; BP diastolic 78–101; PULSE 60–66; RESP 16–20; O2SAT 93–97
[2017-03-19] MEDS ORDERED: Albuterol-Ipratropium 3 mL Inhalation Solution NEB PRN
[2017-03-19] MEDS: oxyCODONE-Acetamin 5-325 mg Tablet PO PRN ×5 (02:15→21:18)
[2017-03-19] MEDS: Meropenem 1 Gm/100 mL NS Minibag Plus IV SCH ×2 (03:28)
[2017-03-19] MEDS: HYDROmorphone 0.5 mg/0.5 mL iSecure Syringe IVPUSH PRN ×4 (04:51→17:58)
[2017-03-19] MEDS: MetoCLOpramide 5 mg/mL 2 mL Inj IVPUSH PRN (04:51)
--- NOTE | 2017-03-19 05:18 | NUR ---
Pain / Respiratory / Mobility Patient consistently reporting pain at 6-7/10 prior to pain medication administration this shift; ATC dosing of Percocet administered with 2 breakthrough doses of Dilaudid administered this shift per patient request. 2 doses of Reglan administered r/t nausea. Oxygen weaned to 5L NC/oxymask this shift, SpO2 93-94% at rest. Pt ambulating with SBA and FWW to bathroom and in room, up to chair this HS for drinking chicken broth, tolerating well. paged at HS r/t hypokalemia, potassium replaced with 40mEqs per nurse protocol initiation, and recheck this AM 3.8.
[2017-03-19] MEDS: Pantoprazole 4 mg/mL 10 mL Inj IVPUSH SCH ×2 (07:47→16:47)
[2017-03-19] MEDS: Lidocaine Topical 5% Patch TOPICAL SCH (07:48)
[2017-03-19] MEDS: Linezolid Inj 600 MG in IV Premix 1 EACH IV SCH (07:48)
[2017-03-19] MEDS: Nystatin 100,000 Unit/Gm 15 Gm Powder TOPICAL SCH ×2 (07:49→19:57)
[2017-03-19] MEDS ORDERED: Vancomycin Dose per Pharmacist XX SCH (11:30)
--- NOTE | 2017-03-19 11:56 | NUR ---
Inpatient Wound Nurse Patient seen for follow up of gluteal wounds. Covidien brand sacral dressing elicits much less erythemic response than Mepilex. Dressing removed today and tissue is pink, dry, and blanchable. A couple of very small areas of dried crusts remain, a few flaked off easily. No additional dressings are needed, patient denied pain in area and is able to reposition PRN. Patient complained of pruritis to L axilla and R groin. Nystatin powder was applied and patient was instructed to keep areas clean and dry. She stated understanding and intended compliance. [facility] will remain as resource to patient and staff, if needed, but specific wound care is no longer needed.
--- NOTE | 2017-03-19 14:11 | PROG NOTE ---
[address] [address] PROGRESS NOTE PATIENT: ERIC WESLEY : 1965 MR#: [id number] ADMIT: 03/06/2017 JOB ID: [id number] DATE: 03/19/2017 SUBJECTIVE: The patient says she is doing okay. She has no complaints this morning. OBJECTIVE: Vital signs: Temperature 36.9, up to 37.1, blood pressure 157/78, up to 177/101. Pulse on telemetry 60, up to 66 beats per minute. No events. Satting 94% to 97% on 4-6 L nasal cannula. Well-nourished woman in no apparent distress. Eyes: No scleral icterus. Heart normal S1, S2. There is 1/6 holosystolic murmur at the apex. Lungs with absent breath sounds over left lung. Abdomen soft, positive bowel sounds. Extremities show no edema. LABORATORIES: Were reviewed. She has elevated white count of 14,000, anemic as 26% hematocrit, big MCV 104 red blood cells and elevated platelet count. She no longer has left shift. Creatinine is 0.4 as of March 17. Her potassium today was 3.8. Ferritin ordered and pending. TSH is normal. INR was most recently 1 as of March 11. CURRENT MEDICATIONS: 1. Hydrochlorothiazide 25 mg daily. 2. Lisinopril 10 mg daily. 3. Dilaudid. 4. Oxycodone. 5. Lovenox 90 mg subcu every 12 hours. 6. Meropenem. 7. Linezolid. 8. Protonix. 9. Reglan. QT interval corrected for rate based on today's strip is 531. ASSESSMENT AND PLAN: In summary, this is a 51-year-old woman with [id number]-[id number] cardiac arrest. There are no EKGs available for review from the event, but the medics had the defibrillator and shock was advised and normal sinus rhythm was restored. They believe presenting rhythm was VF. She has a prolonged QT and has a granddaughter that is monitored by electric range assembler for long QT syndrome. She also has family history of sudden cardiac in her mother at age 21. Hypertension--I recommend stopping hydrochlorothiazide because it can potentiate hypokalemia and be associated with further QT interval prolongation. We will titrate up her lisinopril from 10 mg daily up to 20 mg daily in divided doses. I recommend minimizing any medication that can further prolonged QT interval, including Reglan, which has been discontinued. QT prolongation--It remains an issue for her, so I took the liberty of discontinuing hydrochlorothiazide since it can potentiate hypokalemia and prolong QT even further. I also took the liberty of discontinuing Reglan since it can prolong QT as well. We will engage her readiness for ICD implant by repeating chest x-ray to gauge whether her pneumonia is clinically and radiographically better and whether she is optimized for device implant. Of note, most recent chest x-ray performed on March 17 on personal review demonstrated bilateral patchy antral infiltrates. Right side actually was worse than left side. Also dense left lower lobe pneumonia was noted. Thank you very much for the opportunity to participate in this patient's care. In the short-term after device implant, she can be safely discharged with the understanding that all further medications need to be carefully double-checked against QT interval prolonging database. Additionally, this patient would benefit from potentially having genetic testing to better delineate whether her children or other grandchildren are at risk. Thank you very much for the opportunity to evaluate her.
--- NOTE | 2017-03-19 14:33 | NUR ---
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 She was successfully extubated 03/15. Diet has been advanced to general with poor/fair PO intake. ICD placement planned. PMHX: HTN, PE, splenic cyst, alcohol abuse, chronic pain with opiate use, PE's, hepatic vein thrombosis. LABS: Reviewed. No new labs. MEDS: Reviewed. GI: BM x 1 (03/17). SKIN: Per Cigarette Paper Tester, gluteal wounds appear improved. WT: 92.8 kg, BMI 33.0 kg/m2, Admit wt 93.1 kg, IBW 59.1 kg DIET: General + supplements. PO intake bites-50%. ENTERAL FEEDING: (DISCONTINUED) Jevity 1.5, trophic rate 10 ml/hr. ESTIMATED NEEDS: BMI Calories: 3099-6632 kcal/day (20-22 kcal/kg BW) Protein: 90-105 g/day (1.5-1.8 g/kg IBW) Fluids: ~2350 ml/day (25 ml/kg) NUTRITION DIAGNOSIS: 1) Inadequate oral intake related to decreased ability to consume sufficient energy as evidenced by current NPO status - IMPROVED. 2) Chewing/swallowing difficulties related to recent extubation, as evidenced by inability to pass swallow evaluation today - IMPROVED. NUTRITION INTERVENTION: 1) Continue current diet and supplements as ordered. MONITOR/EVALUATE: Diet tolerance, PO intake, wt, GI, labs, POC, nutrition status. Follow per moderate nutrition risk guidelines.
--- NOTE | 2017-03-19 15:53 | PCM.PNMED ---
Subjective Date of Service Mar 19, 2017 Subjective Patient states she still has some chest pain and rib pain both posteriorly and anteriorly secondary to CPR. This is caused her a somewhat restless night of sleep. She remains on 5 L O2 nasal cannula to maintain saturations in the mid 90s, blood pressure remained somewhat hypertensive. She is scheduled to receive a permanent dual-chamber defibrillator placement tomorrow 03/20/2017. Antibiotics have been stopped with the exception of Zosyn prior to her cardiac intervention tomorrow. White count remains somewhat elevated though. Platelets continue her upward trend. H&H remains stable. Exam Vital Signs Vital Sign - Last Date Time Temp Pulse Resp B/P Pulse Ox O2 Delivery O2 Flow Rate FiO2 03/19/17 10:43 Supplement Oxygen 03/19/17 10:33 62 03/19/17 07:52 20 94 4.50 03/19/17 07:42 36.9 177/101 03/17/17 22:57 Intake and Output 03/18/17 03/18/17 03/19/17 Cumulative From/Thru 15:00 23:00 07:00 03/06/17 15:58 - 03/19/17 06:11 Intake Total 2842 ml 730 ml 14669 ml Output Total 950 ml 89144 ml Balance 1892 ml 730 ml 56381 ml Intake Oral 1836 ml 200 ml 4186 ml IV Total 1006 ml 530 ml 14227 ml Tube Feeding 577 ml Tube Irrigant 280 ml Output Urine Total 950 ml 66092 ml Gastric Drainage Total 1955 ml # Voids 1 3 4 # Bowel Movements 0 4 Exam General: Awake and alert sitting in bedside chair in no acute distress, well- developed, well-nourished, appropriately interactive. Family present at bedside HEENT: Normocephalic, atraumatic. Pupils equal, round, and reactive to light and accommodation. Neck: Supple with full range of motion. No jugular venous distension. Cardiovascular: Regular rate and rhythm with no murmurs, rubs, or gallops appreciated Pulmonary: Decreased breath sounds left lower lung normal respiratory effort is accessory muscles. Abdomen: Bowel tones present. Soft, nontender, nondistended. Extremities: No clubbing, cyanosis, edema Skin: Normal temperature, turgor, and texture Neurological: Cranial nerves grossly intact. Psychiatric: Normal mood and affect. Alert and oriented to person, place, and time. IVs and Medications Medications Reviewed: Medications were reviewed in detail Lab and Diagnostics Result Diagram: 03/17/17 0240 03/19/17 0400 X-Rays, CTs and MRIs Chest x-ray IMPRESSION: Tip of endotracheal tube is 1 cm above the benja, and should be pulled back 3-4 cm. Dictated by: Giovany Modi M.D. on 03/06/2017 at 15:[address] IMPRESSION: No acute intracranial abnormality is not identified on this CT without contrast. Dictated by: Ric Bobby M.D. on 03/06/2017 at 16:27 CTA chest 1. No acute pulmonary embolus. 2. Dependent air space opacities throughout the lungs suspicious for aspiration in the setting of recent cardiac arrest. 3. Bilateral, displaced anterior rib fractures presumably secondary to recent CPR. Dictated by: Sheela Garcia M.D. on 03/06/2017 at 16:[address] 1. No visualized fracture. 2. Pulmonary opacities bilaterally. Please see CT Chest 03/06/17 report for further details. Dictated by: Leticia Maza M.D. on 03/06/2017 at 15:[address] 1. Pulmonary opacities, partially visualized, possibly related to air space disease such as pneumonia or aspiration. 2. Air in the bladder, possibly related to antoine insertion. Other etiologies including infection cannot be excluded. 3. Bilateral rib fractures. Dictated by: Leticia Maza M.D. on 03/06/2017 at 15:59 Chest x-ray IMPRESSION: Central line in good position from a radiographic point of view. No radiographic complication is seen. Other tubes and lines are appropriate. Lungs are clear. Dictated by: Ric Bobby M.D. on 03/06/2017 at 17:51 ROCEDURE: X-RAY CHEST ONE VIEW, PORTABLE ([id number]) IMPRESSION: Improving bilateral pulmonary opacities and pleural effusions. Stable support devices. Dictated by: Bubba Muñoz M.D. on 03/10/2017 at 9:37 . 12-lead ECG EKG 15:46: Prolonged QT with a possible ectopic atrial rhythm; Dr. Xiong reviewed and stated no STEMI Cardiac Echo Impressions Echocardiogram Report Name: ERIC WESLEY MStudy Date: 03/2017 Interpretation Summary The left ventricle is normal in size. There is mild concentric left ventricular hypertrophy. The ejection fraction is estimated to be 35-40%. There is moderate global hypokinesis of the left ventricle. There are no focal wall motion abnormalities. The right ventricle grossly appears normal in size with probable normal systolic function. Right ventricular systolic pressure is estimated to be 18 mmHg plus the clinically estimated CVP which cannot be estimated on this exam. Inspiratory collapse cannot be assessed because of mechanical ventilation, thus CVP cannot be estimated.. No other echocardiographic abnormalities seen. . 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 Currently cause of arrest is unknown but family history is concerning for prolonged QT syndrome. #. Cardiac arrest second to presumed torsades and long QT syndrome; poa; stable -Likely torsades -Repeat ECHo yesterday showed recovery of ventricular function -Dual-chamber pacemaker placement scheduled for tomorrow -Preoperative vancomycin given -Reglan discontinued #. Acute hypoxic respiratory failure; poa; improving. -Extubated 03/15/2017 -Continues to require oxygen likely due to ongoing pneumonia -Continue O2 support -Chest x-rays continued to show a left lower lobe pneumonia pattern -Pro calcitonin remains low 0.27 #. Aspiration pneumonia causing sepsis; poa; improving. -Meropenem and linezolid nasal discontinued as patient has clinically improved -Incentive spirometry #. Chronic opioid dependence, POA and stable. -Initially reported that the pt was trying to get off opiates with the use of suboxone. However, she states she was wearing a fentanyl patch -Continue pain that is controlled with dilaudid for now -Investigate further about home opiate use and SW for assessment -Previously obstipated #. Muscular skeletal chest pain, POA and active. This relates to her CPR and presumed rib fractures. We will continue propofol and add oral pain medications. #. Acute encephalopathy; poa; resolved #. Remote pulmonary embolism and portal vein thrombosis. No further treatment. Patient status: She is discharged home in next 2-3 days pending resolution of ICD implantation and continued progress with her breathing. GI Prophylaxis: H2 pierce VTE Mechanical Devices: Intermittant Pneumatic CD Resuscitation Status: CPR: Attempt Resuscitation EFREM DELAROSA DO Mar 19, 2017 15:53
--- NOTE | 2017-03-19 16:21 | DRSVH ---
PROCEDURE: X-RAY CHEST ONE VIEW, PORTABLE ([id number]) INDICATIONS: pneumonia TECHNIQUE: One view of the chest was acquired. COMPARISON: [facility], CR, XR CHEST 1VW (PORTABLE), 03/15/2017, 4:46. [facility], CR, XR CHEST 1VW (PORTABLE), 03/17/2017, 5:29. FINDINGS: Surgical changes and devices: Stable position a right subclavian CVL. Lungs and pleura: No pleural effusions or pneumothorax. Mid/basilar airspace opacities redemonstrat ed, left greater than right. Mediastinum: Mediastinal contours appear normal. Heart size is normal. Bones and chest wall: No suspicious bony lesions. Overlying soft tissues appear unremarkable. IMPRESSION: Presumed bilateral pneumonia with no significant change from prior exam, left greater karli n right. Dictated by: Long Lynch [facility] Interpreted: Chandra Aguero MD on 03/19/2017 at 14:56 Approved by: Chandra Aguero M.D. on 03/19/2017 at 16:19
--- NOTE | 2017-03-19 17:45 | NUR ---
Pain Patient sloan pain in her back and ribs. Alternating prn Percocet and hydromorphone seems to relieve pain. Patient felt well enough to get up and walk in [place] several times this shift.
[2017-03-20] VITALS (17 sets, daily range): BP systolic 143–182; BP diastolic 74–102; PULSE 62–78; RESP 16–24; O2SAT 91–95
[2017-03-20] MEDS: oxyCODONE-Acetamin 5-325 mg Tablet PO PRN ×4 (01:22→19:54)
[2017-03-20] MEDS: HYDROmorphone 0.5 mg/0.5 mL iSecure Syringe IVPUSH PRN ×5 (03:46→22:19)
[2017-03-20 04:47] LABS: BASOPHILS % (AUTO) 0.5 % (0-3); EOSINOPHILS % (AUTO) 3.7 % (0-5); MONOCYTES % (AUTO) 14.3 % (4-12); Mean Corpuscular Hemoglobin 34.4 pg (27.0-35.0); Mean Corpuscular Volume 103.9 fL (81-100); NEUTROPHILS % (AUTO) 59.5 % (40-74); Platelet Count 836 bil/L (150-400)
[2017-03-20 05:27] LABS: Magnesium 1.6 mg/dL (1.6-2.6)
--- NOTE | 2017-03-20 06:23 | NUR ---
Pain / Respiratory Patient reports pain to chest and back at approx. 7-9/10 throughout shift with relief after administration of PRN percocet Q4H; one use this shift of 1mg Dilaudid IVP for breakthrough pain. Pt ambulating with SBA, tolerating well; oxygen weaned to 2L NC and SpO2 90-94%. VSS, hypertension present but lessened from prior shifts. Tele SR 60s. NPO after midnight for procedure; information handout given to patient due to patient verbalizing anxiety regarding procedure today.
[2017-03-20] MEDS ORDERED: Vancomycin Inj 1,000 MG in IV Premix 1 EACH IV ONE (07:30)
[2017-03-20] MEDS: Lidocaine Topical 5% Patch TOPICAL SCH (08:30)
[2017-03-20] MEDS: Nystatin 100,000 Unit/Gm 15 Gm Powder TOPICAL SCH ×2 (09:33→19:54)
[2017-03-20] MEDS: Pantoprazole 4 mg/mL 10 mL Inj IVPUSH SCH ×2 (09:39→18:22)
[2017-03-20] MEDS ORDERED: Vancomycin 1,000 mg Inj ONE (12:12)
[2017-03-20] MEDS ORDERED: Water for Injection 50 ML IV ONE (12:12)
[2017-03-20] MEDS ORDERED: Bupivacaine-MPF 0.5% 30 mL Inj ONE (12:12)
[2017-03-20] MEDS ORDERED: Heparin 10,000 Unit/1,000 mL NS Premix IV ONE (12:12)
[2017-03-20] MEDS ORDERED: 0.9% Sodium Chloride 1,000 ML ONE (12:13)
[2017-03-20] MEDS ORDERED: 0.9% Sodium Chloride 500 ML ONE (12:13)
[2017-03-20] MEDS ORDERED: fentaNYL-PF 50 mCg/mL 2 mL Inj ONE ×2 (13:01→13:36)
--- NOTE | 2017-03-20 13:09 | NUR ---
to cathlab pt alert and oriented. pt ordered for pacer placement. piv placed in LAC, pt tolerated well. [facility] floor at about 1235. telemetry informed.
[2017-03-20] MEDS ORDERED: Vancomycin 1,000mg/200 mL NS IV ONE (13:12)
[2017-03-20] MEDS ORDERED: Ondansetron 2 mg/mL 2 mL Inj IVPUSH PRN (14:50)
[2017-03-20] MEDS: 0.9% Sodium Chloride 1,000 ML IV SCH (14:50)
[2017-03-20] MEDS ORDERED: HYDROcodone-APAP 5-325 mg Tablet PO PRN (14:50)
--- NOTE | 2017-03-20 15:20 | OP ---
[address] [address] OPERATIVE REPORT PATIENT: ERIC WESLEY : 1965 MR#: [id number] ADMIT: 03/06/2017 JOB ID: [id number] DATE OF SURGERY: 03/20/2017 SURGEON: Jean Nguyen MD. PREOPERATIVE DIAGNOSIS: Cardiac Arrest, LQTS POSTOPERATIVE DIAGNOSIS: Same PROCEDURE: Dual-chamber ICD placement, fluoroscopy, conscious sedation. INDICATION: Status post cardiac arrest, secondary prevention, long QT syndrome. DEVICE: The pacemaker is a [employer], model MW072999B, serial #[id number]. The atrial lead, [employer] model 2088TC/52, serial #[id number]. Ventricular lead, [employer] model 7122Q/58, serial #[id number]. DESCRIPTION: Patient was brought to the cardiac catheterization lab in a fasting condition. She received prophylactic antibiotics. She received conscious sedation per protocol. The chest was prepped and draped in a sterile fashion. The left infraclavicular area was infiltrated with a mix of 1% lidocaine, 0.5% Marcaine as local anesthetic. Using the Seldinger technique with micropuncture needles, the extrathoracic subclavian vein was punctured percutaneously with two separate sticks and guidewires were inserted. The pacer pocket was then created with sharp and blunt dissection and electrocautery. The guidewires were tunneled into the pocket. A 7-Frisian and a 6-Frisian safe sheath were then inserted. A vancomycin soaked sponge was placed in the pocket. The ventricular lead was inserted and manipulated to the RV apex. Initial thresholds were suboptimal. With repositioning, the patient had nonsustained ventricular tachycardia, which resolved spontaneously. The lead was withdrawn into the atrium. On attempted reposition, she also had a brief episode of nonsustained ventricular tachycardia. A stable position was then obtained at the RV apex. The active fixation pin was advanced. R-wave sensing was 12 mV. Capture threshold 0.5 V at a pulse width of 0.5 msec. Lead impedance was 710 ohms. There was no diaphragmatic stimulation with 10 V pacing. The atrial lead was then inserted and manipulated over a J-wire with fluoroscopic monitoring. Stable position in the atrial appendage was found. The active fixation pin was advanced. P-wave sensing was 3.4 mV, lead impedance 410 ohms. Capture threshold 0.5 V at a pulse width 0.5 msec. There is no diaphragmatic stimulation with 10 V pacing. Both peel-away sheaths were then removed and stable positioning confirmed fluoroscopically and with threshold testing. The leads were secured with 0 Ethibond over the plastic sleeve. The sponge was removed from the pocket. The pocket was flushed with a vancomycin solution. The leads were connected to the defibrillator which was placed in the pocket and secured with 0 Ethibond. The subcutaneous tissues were closed with two rows of 2-0 Ethibond. Subcuticular tissues closed with 3-0 Vicryl. The wound was covered with a Bioclusive dressing. The patient tolerated the procedure without any difficulty and was taken to [facility] in stable condition. Followup chest x-ray, device interrogation, and monitoring will be performed. She will follow up in the device clinic in seven days and with Dr. Salazar in one month. KYLEE
[2017-03-20] MEDS ORDERED: HYDROmorphone 1 mg/mL Inj ONE (16:10)
--- NOTE | 2017-03-20 16:29 | DRSVH ---
PROCEDURE: X-RAY CHEST ONE VIEW, PORTABLE ([id number]) INDICATIONS: For new leads placed TECHNIQUE: One view of the chest was acquired. COMPARISON: [facility], CR, XR CHEST 1VW (PORTABLE), 03/19/2017, 13:58. FINDINGS: Surgical changes and devices: Stable positioning of right IJ CVL. Left cardiac pacemaker present in expected position. Lungs and pleura: Diffuse, widespread bilateral pulmonary interstitial and air space opacities are p resent similar to prior examination. No pneumothorax. Small left pleural effusion. Mediastinum: Mediastinal contours appear normal. Heart size is normal. Bones and chest wall: No suspicious bony lesions. Overlying soft tissues appear unremarkable. IMPRESSION: 1. Placement of left chest AICD. 2. Pulmonary edema and/or bibasilar pneumonia similar to prior examination and small left pleural eff usion is noted. Lung aeration is thought to have worsened. Dictated by: Long Lynch [facility] Interpreted: Ric Bobby MD on 03/20/2017 at 15:58 Approved by: Ric Bobby M.D. on 03/20/2017 at 16:27
--- NOTE | 2017-03-20 17:11 | PCM.PNMED ---
Subjective Date of Service Mar 20, 2017 Subjective Overnight Pt states that she was anxious regarding todays surgery. She is scheduled for AICD placement today. White count has normalized, platelets continue to trend up. Pain throughout shift, Percocet and Dilaudid given with good effect. Tele showed sinus rythme and Patient reports pain to chest and back at approx. 7-9/10 throughout shift with relief after administration of PRN percocet Q4H; one use this shift of 1mg Dilaudid IVP for breakthrough pain. Pt ambulating with SBA, tolerating well; oxygen weaned to 2L NC and SpO2 90-94%. VSS, hypertension present but lessened from prior shifts. Tele SR 60s. NPO after midnight for procedure; information handout given to patient due to patient verbalizing anxiety regarding procedure today. Exam Vital Signs Vital Sign - Last Date Time Temp Pulse Resp B/P Pulse Ox O2 Delivery O2 Flow Rate FiO2 03/20/17 03:30 37.4 68 16 165/94 93 Nasal Cannula 2.00 03/17/17 22:57 Intake and Output 03/19/17 03/19/17 03/20/17 Cumulative From/Thru 15:00 23:00 07:00 03/06/17 15:58 - 03/20/17 03:40 Intake Total 800 ml 46735 ml Output Total 34168 ml Balance 800 ml 78382 ml Intake Oral 800 ml 4986 ml IV Total 46469 ml Tube Feeding 577 ml Tube Irrigant 280 ml Output Urine Total 57672 ml Gastric Drainage Total 1955 ml # Voids 3 7 # Bowel Movements 4 Exam General: Awake and alert laying in hospital bed in no acute distress, well- developed, well-nourished, appropriately interactive. HEENT: Normocephalic, atraumatic. Neck: Supple with full range of motion. No jugular venous distension. Cardiovascular: Regular rate and rhythm with no murmurs, rubs, or gallops appreciated Pulmonary: Decreased breath sounds left lower lung normal respiratory effort Abdomen: Bowel tones present. Soft, nontender, nondistended. Extremities: No clubbing, cyanosis, edema Skin: Normal temperature, turgor, and texture Neurological: Cranial nerves grossly intact. Psychiatric: Normal mood and affect. Alert and oriented to person, place, and time. IVs and Medications Medications Reviewed: Medications were reviewed in detail Lab and Diagnostics Result Diagram: 03/20/17 0420 03/20/17 0420 X-Rays, CTs and MRIs Chest x-ray IMPRESSION: Tip of endotracheal tube is 1 cm above the benja, and should be pulled back 3-4 cm. Dictated by: Giovany Modi M.D. on 03/06/2017 at 15:[address] IMPRESSION: No acute intracranial abnormality is not identified on this CT without contrast. Dictated by: Ric Bobby M.D. on 03/06/2017 at 16:27 CTA chest 1. No acute pulmonary embolus. 2. Dependent air space opacities throughout the lungs suspicious for aspiration in the setting of recent cardiac arrest. 3. Bilateral, displaced anterior rib fractures presumably secondary to recent CPR. Dictated by: Sheela Garcia M.D. on 03/06/2017 at 16:[address] 1. No visualized fracture. 2. Pulmonary opacities bilaterally. Please see CT Chest 03/06/17 report for further details. Dictated by: Leticia Maza M.D. on 03/06/2017 at 15:[address] 1. Pulmonary opacities, partially visualized, possibly related to air space disease such as pneumonia or aspiration. 2. Air in the bladder, possibly related to antoine insertion. Other etiologies including infection cannot be excluded. 3. Bilateral rib fractures. Dictated by: Leticia Maza M.D. on 03/06/2017 at 15:59 Chest x-ray IMPRESSION: Central line in good position from a radiographic point of view. No radiographic complication is seen. Other tubes and lines are appropriate. Lungs are clear. Dictated by: Ric Bobby M.D. on 03/06/2017 at 17:51 ROCEDURE: X-RAY CHEST ONE VIEW, PORTABLE ([id number]) IMPRESSION: Improving bilateral pulmonary opacities and pleural effusions. Stable support devices. Dictated by: Bubba Muñoz M.D. on 03/10/2017 at 9:37 . 12-lead ECG EKG 15:46: Prolonged QT with a possible ectopic atrial rhythm; Dr. Xiong reviewed and stated no STEMI Cardiac Echo Impressions Echocardiogram Report Name: ERIC WESLEY MStudy Date: 03/2017 Interpretation Summary The left ventricle is normal in size. There is mild concentric left ventricular hypertrophy. The ejection fraction is estimated to be 35-40%. There is moderate global hypokinesis of the left ventricle. There are no focal wall motion abnormalities. The right ventricle grossly appears normal in size with probable normal systolic function. Right ventricular systolic pressure is estimated to be 18 mmHg plus the clinically estimated CVP which cannot be estimated on this exam. Inspiratory collapse cannot be assessed because of mechanical ventilation, thus CVP cannot be estimated.. No other echocardiographic abnormalities seen. . 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 Currently cause of arrest is unknown but family history is concerning for prolonged QT syndrome. #. Cardiac arrest second to presumed torsades and long QT syndrome; poa; stable -Likely torsades -Repeat ECHo showed recovery of ventricular function -Dual-chamber pacemaker placement scheduled for today 03/20/2017 -Preoperative vancomycin given -Reglan discontinued #. Acute hypoxic respiratory failure; poa; improving. -Extubated 03/15/2017 -Continues to require oxygen likely due to ongoing pneumonia -Continue O2 support -Chest x-rays continued to show a left lower lobe pneumonia pattern -Pro calcitonin remains low 0.27 #. Aspiration pneumonia causing sepsis; poa; improving. -Meropenem and linezolid nasal discontinued as patient has clinically improved -Incentive spirometry #. Chronic opioid dependence, POA and stable. -Initially reported that the pt was trying to get off opiates with the use of suboxone. However, she states she was wearing a fentanyl patch -Continue pain that is controlled with dilaudid for now -Investigate further about home opiate use and SW for assessment -Previously obstipated #. Muscular skeletal chest pain, POA and active. This relates to her CPR and presumed rib fractures. -Pain medications as above #. Acute encephalopathy; poa; resolved #. Remote pulmonary embolism and portal vein thrombosis. No further treatment. Patient status: Patient will most likely be discharged tomorrow after overnight monitoring status post pacemaker placement. Pain Evaluation: Adequate Pain Control GI Prophylaxis: H2 pierce VTE Mechanical Devices: Intermittant Pneumatic CD Resuscitation Status: CPR: Attempt Resuscitation EFREM DELAROSA DO Mar 20, 2017 07:40
--- NOTE | 2017-03-20 17:28 | NUR ---
Received/Recovery/Transfer Received from laundry laborer about 1500. VSS. Tele apaced. Dressing to Left CW with small amt drainage. Ice pack on. Sling provided. CXR and EKG done. C/O rib pain from broken ribs. Percocet 2 po given and stated could breathe easier but not much pain relief. Dilaudid 1mg IVP given in slightly divided doses and stated pain down to 4/10. Very slight increase in drainage over recovery period and marked. No swelling or hematoma. O2 on at 3L [facility]. Report to Modesta Garza RN. Pt. transported to 2028 via bed with family and belongings in no distress by staff at 1700.
[2017-03-20] MEDS: Furosemide 10 mg/mL 2 mL Inj IVPUSH SCH (19:44)
[2017-03-21] VITALS (8 sets, daily range): BP systolic 146–189; BP diastolic 88–99; PULSE 60–73; RESP 18–24; O2SAT 93–95
[2017-03-21] MEDS ORDERED: Vancomycin Inj 1,000 MG in IV Premix 1 EACH IV ONE
[2017-03-21] MEDS: oxyCODONE-Acetamin 5-325 mg Tablet PO PRN ×4 (00:22→17:32)
[2017-03-21] MEDS: 0.9% Sodium Chloride 1,000 ML IV SCH ×4 (00:50→21:13)
[2017-03-21 03:49] LABS: BASOPHILS % (AUTO) 0.4 % (0-3); Mean Corpuscular Hemoglobin 34.8 pg (27.0-35.0)
[2017-03-21 03:56] LABS: MONOCYTES % (AUTO) 14.7 % (4-12); Mean Corpuscular Volume 104.5 fL (81-100); NEUTROPHILS % (AUTO) 54.7 % (40-74); Platelet Count 739 bil/L (150-400)
[2017-03-21 04:14] LABS: Magnesium 1.7 mg/dL (1.6-2.6)
--- NOTE | 2017-03-21 06:10 | NUR ---
Cardiac Left chest pacemaker/ AICD in situ. Pt had approx. 6 sec run of VF. AICD shocked pt. SR restored. Pt stated she felt it and it was very terrifying experience. Reinforced education. Pt verbalizes understanding. Dressing C/D/I. Pt using Left arm sling. She appears anxious at times. C/O pain and medicated accordingly. VSS. No overt complications noted.
--- NOTE | 2017-03-21 06:37 | NUR ---
Left the floor for CxR post pacemaker/AICD insertion.
[2017-03-21] MEDS: Nystatin 100,000 Unit/Gm 15 Gm Powder TOPICAL SCH ×2 (09:50→21:10)
[2017-03-21] MEDS: Lidocaine Topical 5% Patch TOPICAL SCH (09:50)
[2017-03-21] MEDS: Pantoprazole 4 mg/mL 10 mL Inj IVPUSH SCH ×2 (09:50→17:32)
[2017-03-21] MEDS: HYDROmorphone 0.5 mg/0.5 mL iSecure Syringe IVPUSH PRN ×2 (09:50→14:34)
[2017-03-21] MEDS: Potassium Chloride 20 mEq SR Tablet PO SCH ×2 (11:30→21:10)
[2017-03-21] MEDS: Magnesium Sulf 2 Gm/50mL Water 2 GM in IV Premix 1 EACH IV SCH ×2 (11:33→21:10)
--- NOTE | 2017-03-21 11:36 | PROG NOTE ---
[address] [address] PROGRESS NOTE PATIENT: ERIC WESLEY : 1965 MR#: [id number] ADMIT: 03/06/2017 JOB ID: [id number] DATE: 03/21/2017 CHIEF COMPLAINT: "I got shocked last night." SUBJECTIVE: The patient is a pleasant 51-year-old woman with no prior cardiac history who was admitted on March 06, 2017 following a cardiac arrest at home related to long QT syndrome. She received a defibrillator yesterday without incident and was recovering normally but at about 8:30 last night she experienced near-syncope and had a shock from the ICD. This morning she is feeling okay, except for some soreness at the ICD site. OBJECTIVE: The ICD site is closed and dry. There is no significant hematoma. Chest x-ray shows good lead position and no pneumothorax. Device evaluation shows excellent capture and sensing thresholds for both atrial and ventricular leads. The device data shows an episode of polymorphic ventricular tachycardia at 8:28 p.m. last evening. At 4 seconds into the arrhythmia, the device delivered eight pacing pulses for antitachycardia pacing therapy, but her rhythm degenerated into ventricular fibrillation. At a total of 12 seconds of arrhythmia time she received a 30 joule shock which successfully converted her back to sinus rhythm. Also recorded by her cardiac telemetry have been 3 runs of brief polymorphic VT. LABORATORY DATA: From this morning includes potassium 3.6, creatinine 0.47, magnesium 1.7. Her WBC count is normal at 9.8. ASSESSMENT AND PLAN: This is a nice 51-year-old woman who has had a cardiac arrest from long QT syndrome and experienced another episode of polymorphic VT last night and the ICD delivered pacing therapy. The tachycardia degenerated into ventricular fibrillation and she was quickly defibrillated by the ICD. It will definitely be important to keep her magnesium and potassium at high- normal levels and to avoid any QT prolonging medications. I took the liberty this morning to order magnesium replacement at 2 g IV b.i.d. x3 doses and to start her on potassium chloride 40 mEq p.o. b.i.d. Labs will be repeated tomorrow morning. I also started her on nadolol 40 mg b.i.d. as the recommended dose for nadolol in long QT syndrome is 1-2 mg/kg per day. I also stopped the ondansetron (Zofran) because this medication is definitely linked to QT interval prolongation. Further, I made adjustments in her ICD to treat her sustained arrhythmias with shock therapy only and not with ATP burst pacing because it accelerated her polymorphic VT to V. Fib. Dr. Anastasiia Xiong and I discussed the patient's situation and presentation today prior to the orders I placed. KUNALD
--- NOTE | 2017-03-21 12:27 | DRSVH ---
PROCEDURE: X-RAY CHEST, TWO VIEWS ([id number]) INDICATIONS: For new lead placement TECHNIQUE: 2 views of the chest were acquired. COMPARISON: [facility], CR, XR CHEST 1VW (PORTABLE), 03/20/2017, 15:07. FINDINGS: Surgical changes and devices: Stable positioning of right IJ CVL. Left cardiac pacemaker present in expected position. Lungs and pleura: Diffuse, widespread bilateral pulmonary interstitial and air space opacities are p resent similar to prior examination. No pneumothorax. Small left pleural effusion. Mediastinum: Mediastinal contours appear normal. Heart size is normal. Bones and chest wall: No suspicious bony lesions. Overlying soft tissues appear unremarkable. IMPRESSION: 1. Stable positioning of left chest AICD. 2. Pulmonary edema and/or bibasilar pneumonia similar to prior examination. 3. Small pleural effusions redemonstrated. Dictated by: Long Lynch [facility] Interpreted: Karina Hernández MD on 03/21/2017 at 11:35 Approved by: Karina Hernández MD, PhD on 03/21/2017 at 12:25
--- NOTE | 2017-03-21 13:39 | PCM.PNMED ---
Subjective Date of Service Mar 21, 2017 Subjective Procedure pacemaker placement yesterday. Overnight she had she had her pacemaker fired approximately 8:30. She states she was just nodding off to sleep when she was woken with a sharp pain from the pacemaker firing saying that she saw lightning flashes throughout the room. States she also had a smaller pacemaker fire again during the evening. Overall her pain is controlled though she does continue to assess for breakthrough pain medication. She is currently working with physical therapy and making good progress. R Exam Vital Signs Vital Sign - Last Date Time Temp Pulse Resp B/P Pulse Ox O2 Delivery O2 Flow Rate FiO2 03/21/17 12:16 36.8 73 20 149/88 94 Nasal Cannula 3.00 03/17/17 22:57 Intake and Output 03/20/17 03/20/17 03/21/17 Cumulative From/Thru 15:00 23:00 07:00 03/06/17 15:58 - 03/21/17 06:06 Intake Total 200 ml 300 ml 600 ml 16719 ml Output Total 900 ml 15112 ml Balance 200 ml 300 ml -300 ml 93792 ml Intake Oral 200 ml 300 ml 400 ml 5886 ml IV Total 200 ml 14562 ml Tube Feeding 577 ml Tube Irrigant 280 ml Output Urine Total 900 ml 71424 ml Gastric Drainage Total 1955 ml # Voids 3 2 12 # Bowel Movements 1 0 1 6 Exam General: Awake and alert, sitting up in hospital bed in no acute distress, well- developed, well-nourished, appropriately interactive. HEENT: Normocephalic, atraumatic. Neck: Supple with full range of motion. No jugular venous distension. Right IJ in place. Cardiovascular: Regular rate and rhythm with no murmurs, rubs, or gallops appreciated Pulmonary: Decreased breath sounds left lower lung normal respiratory effort Abdomen: Bowel tones present. Soft, nontender, nondistended Extremities: No clubbing, cyanosis, edema Skin: Normal temperature, turgor, and texture Neurological: Cranial nerves grossly intact Psychiatric: Normal mood and affect. Alert and oriented to person, place, and time. IVs and Medications Medications Reviewed: Medications were reviewed in detail Lab and Diagnostics Result Diagram: 03/21/17 03303/21/17 033 X-Rays, CTs and MRIs Chest x-ray IMPRESSION: Tip of endotracheal tube is 1 cm above the benja, and should be pulled back 3-4 cm. Dictated by: Giovany Modi M.D. on 03/06/2017 at 15:[address] IMPRESSION: No acute intracranial abnormality is not identified on this CT without contrast. Dictated by: Ric Bobby M.D. on 03/06/2017 at 16:27 CTA chest 1. No acute pulmonary embolus. 2. Dependent air space opacities throughout the lungs suspicious for aspiration in the setting of recent cardiac arrest. 3. Bilateral, displaced anterior rib fractures presumably secondary to recent CPR. Dictated by: Sheela Garcia M.D. on 03/06/2017 at 16:[address] 1. No visualized fracture. 2. Pulmonary opacities bilaterally. Please see CT Chest 03/06/17 report for further details. Dictated by: Leticia Maza M.D. on 03/06/2017 at 15:[address] 1. Pulmonary opacities, partially visualized, possibly related to air space disease such as pneumonia or aspiration. 2. Air in the bladder, possibly related to antoine insertion. Other etiologies including infection cannot be excluded. 3. Bilateral rib fractures. Dictated by: Leticia Maza M.D. on 03/06/2017 at 15:59 Chest x-ray IMPRESSION: Central line in good position from a radiographic point of view. No radiographic complication is seen. Other tubes and lines are appropriate. Lungs are clear. Dictated by: Ric Bobby M.D. on 03/06/2017 at 17:51 ROCEDURE: X-RAY CHEST ONE VIEW, PORTABLE ([id number]) IMPRESSION: Improving bilateral pulmonary opacities and pleural effusions. Stable support devices. Dictated by: Bubba Muñoz M.D. on 03/10/2017 at 9:37 . 12-lead ECG EKG 15:46: Prolonged QT with a possible ectopic atrial rhythm; Dr. Xiong reviewed and stated no STEMI Cardiac Echo Impressions Echocardiogram Report Name: ERIC WESLEY MStudy Date: 03/2017 Interpretation Summary The left ventricle is normal in size. There is mild concentric left ventricular hypertrophy. The ejection fraction is estimated to be 35-40%. There is moderate global hypokinesis of the left ventricle. There are no focal wall motion abnormalities. The right ventricle grossly appears normal in size with probable normal systolic function. Right ventricular systolic pressure is estimated to be 18 mmHg plus the clinically estimated CVP which cannot be estimated on this exam. Inspiratory collapse cannot be assessed because of mechanical ventilation, thus CVP cannot be estimated.. No other echocardiographic abnormalities seen. . 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 Currently cause of arrest is unknown but family history is concerning for prolonged QT syndrome. #. Cardiac arrest second to presumed torsades and long QT syndrome; poa; stable -Likely torsades -Repeat ECHO showed recovery of ventricular function -Dual-chamber pacemaker placement 03/20/2017 -Preoperative vancomycin given -Reglan discontinued -Zofran discontinued -Nadolol started per cardiology #. Acute hypoxic respiratory failure; poa; improving. -Extubated 03/15/2017 -Continues to require oxygen likely due to ongoing pneumonia -Continue O2 support -Chest x-rays continued to show a left lower lobe pneumonia pattern -Pro alcitonin remains low 0.27 #. Aspiration pneumonia causing sepsis; poa; improving. -Meropenem and linezolid nasal discontinued as patient has clinically improved -Incentive spirometry #. Chronic opioid dependence, POA and stable. -Initially reported that the pt was trying to get off opiates with the use of suboxone. However, she states she was wearing a fentanyl patch -Continue pain that is controlled with dilaudid for now -Investigate further about home opiate use and SW for assessment -Previously obstipated #. Muscular skeletal chest pain, POA and active. This relates to her CPR and presumed rib fractures. -Pain medications as above #. Acute encephalopathy; poa; resolved #. Remote pulmonary embolism and portal vein thrombosis. No further treatment. Patient status: Remains inpatient status after his maker placement, pacemaker fired yesterday. We will need additional 24-hour monitoring at least. GI Prophylaxis: H2 pierce VTE Mechanical Devices: Intermittant Pneumatic CD Resuscitation Status: CPR: Attempt Resuscitation Time spent 20 minutes Attending Statement Patient has been seen and examined by myself with medical coding technician and agree with above history, physical, assessment and plan. EFREM DELAROSA DO Mar 21, 2017 13:39 Modesta Villalpando MD Mar 21, 2017 17:32
--- NOTE | 2017-03-21 14:45 | NUR ---
pain management/activity pt alert and oriented. very motivated for self care and activity, almost restless. pt reporting moderate to severe pain of left shoulder, ribs and back. prn percocet and dilaudid given per md order for effective relief. pt also noting nausea, phenergan given. will continue to monitor.
--- NOTE | 2017-03-21 16:53 | NUR ---
Social Work: Continued Discharge Planning/Multidisciplinary Rounds D: Pt discussed in multidisciplinary rounds. Pt is not yet medically stable for discharge as she had her pacer fire overnight. Pt is also desating with exertion with PT. PT was able to work with the patient using a cane. Pt was able to ambulate 100 feet before sats were in the 80s. Current recommendation is for HH with family to be SBA/CGA for ambulation with a cane until HH can progress pt's mobility. Provider has placed a CM order for HH. Order acknowledged. GRUBBER met with the patient and her spouse at bedside to review discharge recommendations. Pt is aware of the recommendations and states that at this time she is receptive to HH but is not yet sure where she will be discharging. She states that next week she will be going to stay with her parents in [place] who will provide 24/7 support while her spouse works (cushion stuffer). Pt lives in [place]. At this time there are no HH companies who service both [place] and [facility]. HH CHOICE LIST PROVIDED to the patient. She has no preference for HH companies. GRUBBER will follow up with her prior to d/c to determine what HH company should be used depending on where she is to discharge. Pt spouse states that they are obtaining the patient a cane for personal use after discharge. A: Pt who will require home health due to homebound status. P: Anticipate pt to discharge home with HH for RN and PT. GRUBBER to follow up with the patient on day of discharge to determine which company will need to be referred depending on where she will be going- [place] versus [place]. GRUBBER to continue to follow to assess for d/c needs. MAVIS Beasley
[2017-03-22] MEDS: oxyCODONE-Acetamin 5-325 mg Tablet PO PRN ×3 (01:38→12:07)
[2017-03-22 02:49] VITALS: BP 159/92; PULSE 60; RESP 18; O2SAT 97
[2017-03-22 02:56] LABS: BASOPHILS % (AUTO) 0.2 % (0-3); EOSINOPHILS % (AUTO) 1.5 % (0-5); Mean Corpuscular Hemoglobin 34.3 pg (27.0-35.0); Mean Corpuscular Volume 104.3 fL (81-100); NEUTROPHILS % (AUTO) 70.4 % (40-74); Platelet Count 632 bil/L (150-400)
[2017-03-22 03:28] LABS: Magnesium 2.2 mg/dL (1.6-2.6)
[2017-03-22 06:11] VITALS: PULSE 60
--- NOTE | 2017-03-22 07:06 | NUR ---
Cardiac Uneventful shift. No ectopies noted. Pacer spikes noted. Mag level = 2.2, K+ level = 4.4. VSS. No overt complications noted.
[2017-03-22 07:33] VITALS: BP 184/92; PULSE 60; RESP 28; O2SAT 95
[2017-03-22] MEDS: Lidocaine Topical 5% Patch TOPICAL SCH (07:44)
[2017-03-22 07:49] VITALS: PULSE 60; RESP 16; O2SAT 97
[2017-03-22] MEDS: Magnesium Sulf 2 Gm/50mL Water 2 GM in IV Premix 1 EACH IV SCH (07:53)
[2017-03-22] MEDS: Pantoprazole 4 mg/mL 10 mL Inj IVPUSH SCH (07:53)
[2017-03-22] MEDS: Potassium Chloride 20 mEq SR Tablet PO SCH (07:53)
[2017-03-22] MEDS: Nystatin 100,000 Unit/Gm 15 Gm Powder TOPICAL SCH (07:54)
[2017-03-22 09:43] VITALS: PULSE 60
[2017-03-22] MEDS ORDERED: NDL40T PO (10:58)
[2017-03-22] MEDS ORDERED: MAGN64TA7 PO (11:00)
--- NOTE | 2017-03-22 11:20 | PCM.DC.MED ---
Discharge Summary Date of Service Mar 22, 2017 Dates of Hospitalization Date of Hospital Admission Mar 06, 2017 at 17:43 Date of Discharge: Mar 22, 2017 Providers: Admitting Physician: Eagle Perez MD Primary Care Physician: Josemanuel Charles MD Attending Physician: Modesta Villalpando MD Diagnosis at Time of Discharge Diagnosis at Time of Discharge Cardiac arrest second to presumed torsades and long QT syndrome Acute hypoxic respiratory failure Aspiration pneumonia causing sepsis Chronic opioid dependence Muscular skeletal chest pain Acute encephalopathy Remote pulmonary embolism and portal vein thrombosis Consultations Dr. Scarlett M.D., pulmonology/intensive care Dr. Morgan Garcia, pulmonology/intensive care Dr. Vazquez M.D., cardiology Dr. Tyrese M.D., cardiology Dr. Patrick M.D., cardiology Ric Mcallister PA-C, cardiology Procedures XRay, CTs & MRIs . X-RAY CHEST ONE VIEW, PORTABLE IMPRESSION: Tip of endotracheal tube is 1 cm above the benja, and should be pulled back 3-4 cm. Dictated by: Giovany Modi M.D. on 03/06/2017 X-RAY CHEST ONE VIEW, PORTABLE IMPRESSION: Central line in good position from a radiographic point of view. No radiographic complication is seen. Other tubes and lines are appropriate. Lungs are clear. Dictated by: Ric Bobby M.D. on 03/06/2017 X-RAY CHEST ONE VIEW, PORTABLE IMPRESSION: Left basilar atelectasis versus aspiration or pneumonia. Correlate clinically. Dictated by: Long TAMEZ Interpreted: Chandra Aguero MD on 03/07/2017 X-RAY CHEST ONE VIEW, PORTABLE IMPRESSION: Persistent left basilar consolidation not significantly changed. Dictated by: Long TAMEZ Interpreted: Ric Bobby MD on 03/08/2017 X-RAY CHEST ONE VIEW, PORTABLE IMPRESSION: 1. Increasing pulmonary edema and/or diffuse bilateral pneumonia. Dictated by: Long TAMEZ Interpreted: Sheela Garcia MD on 03/09/2017 X-RAY CHEST ONE VIEW, PORTABLE IMPRESSION: Improving bilateral pulmonary opacities and pleural effusions. Stable support devices. Dictated by: Bubba Muñoz M.D. on 03/10/2017 X-RAY CHEST ONE VIEW, PORTABLE IMPRESSION: 1. Increased left retrocardiac opacities consistent with consolidation which may reflect pneumonia or aspiration. 2. Slight increased pulmonary edema and possible small left pleural effusion. Dictated by: Josemanuel Luna M.D. on 03/12/2017 X-RAY CHEST ONE VIEW, PORTABLE IMPRESSION: 1. Worsening bibasilar opacities most consistent with infection. 2. Stable ET tube, enteric tube, and right IJ CVC. Dictated by: Bubba Muñoz M.D. on 03/13/2017 X-RAY CHEST ONE VIEW, PORTABLE IMPRESSION: Mixed worsening and improvement of bilateral pneumonia. Stable support devices. Dictated by: Bubba Muñoz M.D. on 03/14/2017 X-RAY CHEST ONE VIEW, PORTABLE IMPRESSION: No change in multifocal pneumonia. Continued plain film surveillance is recommended to ensure resolution, and to exclude underlying or central malignancy. Dictated by: Mirna Modi M.D. on 03/15/2017 X-RAY CHEST ONE VIEW, PORTABLE IMPRESSION: Dense left lower lobe pneumonia pattern, patchy additional pneumonia elsewhere, central line remains in normal position, endotracheal tube has been removed. Dictated by: Chandra Aguero M.D. on 03/17/2017 X-RAY CHEST ONE VIEW, PORTABLE IMPRESSION: Presumed bilateral pneumonia with no significant change from prior exam, left greater than right. Dictated by: Long TAMEZ Interpreted: Chandra Aguero MD on 03/19/2017 X-RAY CHEST ONE VIEW, PORTABLE IMPRESSION: 1. Placement of left chest AICD. 2. Pulmonary edema and/or bibasilar pneumonia similar to prior examination and small left pleural effusion is noted. Lung aeration is thought to have worsened. Dictated by: Long TAMEZ Interpreted: Ric Bobby MD on 03/20/2017 X-RAY CHEST, TWO VIEWS IMPRESSION: 1. Stable positioning of left chest AICD. 2. Pulmonary edema and/or bibasilar pneumonia similar to prior examination. 3. Small pleural effusions redemonstrated. Dictated by: Long TAMEZ Interpreted: Karina Hernández MD on 03/21/2017 CT BRAIN WITHOUT CONTRAST IMPRESSION: No acute intracranial abnormality is not identified on this CT without contrast. Dictated by: Ric Bobby M.D. on 03/06/2017 CT ANGIO CHEST PULMONARY EMBOLISM IMPRESSION: 1. No acute pulmonary embolus. 2. Dependent air space opacities throughout the lungs suspicious for aspiration in the setting of recent cardiac arrest. 3. Bilateral, displaced anterior rib fractures presumably secondary to recent CPR. Dictated by: Sheela Garcia M.D. on 03/06/2017 CT CERVICAL SPINE WITHOUT CONTRAST IMPRESSION: 1. No visualized fracture. 2. Pulmonary opacities bilaterally. Please see CT Chest 03/06/17 report for further details. Dictated by: Leticia Maza M.D. on 03/06/2017 CT ABDOMEN AND PELVIS WITH CONTRAST IMPRESSION: 1. Pulmonary opacities, partially visualized, possibly related to air space disease such as pneumonia or aspiration. 2. Air in the bladder, possibly related to antoine insertion. Other etiologies including infection cannot be excluded. 3. Bilateral rib fractures. Dictated by: Leticia Maza M.D. on 03/06/2017 US ABDOMEN, LIMITED IMPRESSION: No sonographic evidence to support acute cholecystitis. If concern for cholecystitis persists recommend a HIDA scan with CCK injection. Right pleural effusion is incidentally noted. Dictated by: Bubba Muñoz M.D. on 03/13/2017 CT CHEST, ABDOMEN AND PELVIS WTIH CONTRAST IMPRESSION: 1. Bilateral airspace opacities and bibasilar consolidations consistent with pneumonia. 2. Small bilateral perfusion is in bibasilar atelectasis. 3. Mild mediastinal and hilar lymphadenopathy. 4. Appearance of wall thickening in sigmoid colon. Differential diagnoses include early colitis versus artifact given lack of distention. A small amount of free fluid is present. 5. Anterior rib fractures bilaterally. Dictated by: Eric Carvajal M.D. on 03/13/2017 CT BRAIN WITHOUT CONTRAST IMPRESSION: 1. No acute intracranial abnormalities. 2. Pansinusitis. Dictated by: Eric Carvajal M.D. on 03/13/2017 ECG 12 Lead EKG 15:46: Prolonged QT with a possible ectopic atrial rhythm; Dr. Xiong reviewed and stated no STEMI Cardiac Echo Impression Echocardiogram Report Name: ERIC WESLEY MStudy Date: 03/2017 Interpretation Summary The left ventricle is normal in size. There is mild concentric left ventricular hypertrophy. The ejection fraction is estimated to be 35-40%. There is moderate global hypokinesis of the left ventricle. There are no focal wall motion abnormalities. The right ventricle grossly appears normal in size with probable normal systolic function. Right ventricular systolic pressure is estimated to be 18 mmHg plus the clinically estimated CVP which cannot be estimated on this exam. Inspiratory collapse cannot be assessed because of mechanical ventilation, thus CVP cannot be estimated.. No other echocardiographic abnormalities seen. . Brief History History of present illness by Dr. 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 History is obtained from prior hospital and outpatient records, as well as her Fco. He states that today the patient coughed, and to the bathroom, had a bowel movement, and then collapsed in the bathroom. She heard the patient fall in the tub and went to offer assistance. There he found her down with a thready pulse, was able to turn her onto her back in the tub and began CPR. At that time he also called 911 and within 5 minutes the [employer] was there to render assistance. They move the patient from the bathtub to the kitchen and continued with CPR and AED shocked the patient wants. Approximately 10 minutes later EMS arrived the patient was shocked again with return of spontaneous circulation. Patient was intubated in the field and report from ENT stated that there was a large amount of vomit in the oropharynx. The denies review of systems prior to this episode. He does state that the patient's been trying to get away from narcotics and started a Suboxone patch today. He does not know if she continued to use her opioids. 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 In January 2015 she had an encounter with [facility] surgical team due to a large splenic cyst that was removed. The patient was vaccinated appropriately. Patient also presented to [facility] in November of this year and underwent CT which which identified a filling defect in the right posterior medial segment of the right lobe, reportedly consistent with hepatic vein thrombosis, as well as a pulmonary embolism. Those records are not available at this time. She was placed on warfarin and Lovenox but presented to [facility] ED 3 days later with persistent right upper quadrant abdominal and chest pain. She was discharged at that time with an increase in her warfarin to 15 mg daily and was to follow- up with [facility] Initially the patient was bucking the vent and large amount of fentanyl and propofol were ineffective and stopping the patient from fighting the vent and attempting to remove the ET tube. Versed 6 mg push was used to sedate the patient In the emergency department EKG around 1700 showed prolonged QT interval but otherwise was normal sinus rhythm. Troponin was positive at 0.068, LFTs were elevated at nearly 2-1 fashion, and CK was elevated to 29. Patient also had a acidosis of 22 which is expected after rest. Patient also had leukocytosis without left shift. Otherwise labs were unremarkable.CT of the brain and cervical region was taken and negative for bleed. CTA of the chest was taken and negative for pulmonary embolism. CT of the abdomen and pelvis was unremarkable." Hospital Course 51-year-old female past medical history history hypertension, multiple pulmonary embolism and hepatic vein thrombosis, and alcohol abuse on chronic opioids and now Suboxone admitted to the emergency department following cardiac arrest causing intubation and brief ICU stay. Diagnosis prolonged QT syndrome eventually receiving cardiac pacemaker placement. Cardiac arrest second to presumed torsades and long QT syndrome -Likely torsades, with prolonged QT syndrome -Repeat ECHO showed recovery of ventricular function -Dual-chamber pacemaker placement 03/20/2017 -QT prolonging agents discontinued -Discharge at the medications now will all and magnesium supplement Acute hypoxic respiratory failure -Extubated 03/15/2017 -Has required low flow O2 throughout stable at time of discharge saturating in the low 90s on room air -Chest x-rays continued to show a left lower lobe pneumonia pattern, antibiotics discontinued after sufficient clinical progression and no further clinical impression of ongoing pneumonia -Pro calcitonin normal at discharge Aspiration pneumonia causing sepsis -Antibiotic course completed during hospital stay -No further clinical evidence of pneumonia at time of discharge Chronic opioid dependence -Initially reported that the pt was trying to get off opiates with the use of suboxone. However, she states she was wearing a fentanyl patch -Dilaudid while in hospital, transitioned back to oral pain medications at time of discharge -We will require further outpatient management of opioid dependence Muscular skeletal chest pain -Continue to rib fractures suffered from CPR -Pain medications as above Acute encephalopathy Remote pulmonary embolism and portal vein thrombosis. Exam Vital Signs (Last) Date Time Temp Pulse Resp B/P Pulse Ox O2 Delivery O2 Flow Rate FiO2 03/22/17 09:43 60 03/22/17 07:49 16 97 Room Air 03/22/17 07:33 37.2 184/92 2.00 03/17/17 22:57 Exam General: Awake and alert, laying in hospital bed in no acute distress, well- developed, well-nourished, appropriately interactive. HEENT: Normocephalic, atraumatic. Neck: Supple with full range of motion. No jugular venous distension. Right IJ in place. Cardiovascular: Regular rate and rhythm with no murmurs, rubs, or gallops appreciated Pulmonary: Clear to auscultation bilaterally, no crackles wheezes or rhonchi Abdomen: Bowel tones present. Soft, nontender, nondistended Extremities: No clubbing, cyanosis, edema Skin: Normal temperature, turgor, and texture Neurological: Cranial nerves grossly intact Psychiatric: Normal mood and affect. Alert and oriented to person, place, and time. Test 03/06/17 15:56 03/06/17 16:13 03/07/17 11:48 03/10/17 04:05 Hemoglobin A1c 5.3% (4.8-5.6) Alcohols < 10mg/dL (0-10) Hold Urine Received (Received) Total Creatine Kinase 1234U/L (21-215) Creatine Kinase MB 42.8ng/mL (0.0-5.3) Creatine Kinase MB % 3.5% (0.0-5.0) Hematology Comments Lactic Acid Level 1.3mmol/L (0.4-2.0) Test 03/11/17 08:40 03/12/17 15:58 03/13/17 06:52 03/13/17 12:30 Prothrombin Time 11.4sec (8.1-12.5) Prothromb Time International Ratio 1.06ratio Lipase 22U/L (13-60) Urine Color Yellow (YELLOW) Urine Appearance Clear (CLEAR,HAZY) Urine pH 6.0 (5.0-8.0) Urine Specific [place] 1.015 (1.003-1.035) Urine Protein Negativemg/dL (NEG,TRACE) Urine Glucose (UA) Negativemg/dL (NEGATIVE) Urine Ketones Negativemg/dL (NEGATIVE) Urine Occult Blood Trace (NEGATIVE) Urine Nitrite Negative (NEGATIVE) Urine Bilirubin Negative (NEGATIVE) Urine Urobilinogen Normalmg/dL (NORMAL) Urine Leukocyte Esterase Negative (NEGATIVE) Urine RBC 0-2/hpf (0-2) Urine WBC 0-5/hpf (0-5) Urine Epithelial Cells Few/hpf (NONE-MOD) Urine Crystals Uric acid crystals (NONE Urine Bacteria Few/hpf (NONE-FEW) Urine Hyaline Casts None/lpf (NONE) Urine Granular Casts None seen (NONE SEEN) Urine Waxy Casts None seen (NONE SEEN) Urine Red Blood Cell Casts None seen (NONE SEEN) Urine White Blood Cell Casts None seen (NONE SEEN) Urine Mucus None seen (None Seen) Urine Trichomonas None seen (NONE SEEN) Urine Yeast None (NONE SEEN) Urinalysis Comment None Urine Culture Reflexed Not indicated Thyroid Stimulating Hormone (TSH) 0.838uIU/mL (0.450-4.500) Hold Louin Top Tube Received (Received) Test 03/13/17 12:57 03/14/17 05:35 03/15/17 15:06 03/19/17 04:00 Lupus Anticoagulant APTT 31.2sec (0.0-51.9) Dilute Mikel Viper Venom (Lupus) 39.5sec (0.0-47.0) Lupus Anticoagulant Interpretation Comment: (.) Myeloperoxidase <9.0U/mL (0.0-9.0) Anti-Nuclear Antibody Screen Negative (Negative) Cytoplasmic ANCA (c-ANCA) Antibody <1:20titer (Neg:<1:20) Proteinase 3 (PR3) Antibodies <3.5U/mL (0.0-3.5) Atypical p-ANCA <1:20titer (Neg:<1:20) Perinuclear ANCA (p-ANCA) Antibody <1:20titer (Neg:<1:20) Phosphorus Level 3.7mg/dL (2.5-4.9) Prealbumin 9mg/dL (20-40) Troponin T < 0.010ug/L (0.0-0.011) Hold Tim Top Tube Received (Received) Ferritin 405ng/mL (13-150) Test 03/20/17 04:20 03/22/17 02:50 Procalcitonin 0.06ng/mL (0.00-0.08) White Blood Count 12.4th/mm3 (3.8-10.1) Red Blood Count 2.80mil/mm3 (3.90-5.20) Hemoglobin 9.6g/dL (12.0-15.6) Hematocrit 29.2% (35.0-46.0) Mean Corpuscular Volume 104.3fL (81-100) Mean Corpuscular Hemoglobin 34.3pg (27.0-35.0) Mean Corpuscular Hemoglobin Concent 32.9% (32.0-37.0) Red Cell Distribution Width 16.6% (12.3-15.4) Platelet Count 632bil/L (150-400) Neutrophils (%) (Auto) 70.4% (40-74) Lymphocytes (%) (Auto) 13.5% (14-46) Monocytes (%) (Auto) 14.0% (4-12) Eosinophils (%) (Auto) 1.5% (0-5) Basophils (%) (Auto) 0.2% (0-3) Sodium Level 137mEq/L (134-144) Potassium Level 4.4mEq/L (3.5-5.2) Chloride Level 104mEq/L (97-108) Carbon Dioxide Level 20mmol/L (18-29) Blood Urea Nitrogen 8mg/dL (6-24) Creatinine 0.41mg/dL (0.57-1.00) Estimat Glomerular Filtration Rate 235mL/min (>59) Glucose Level 115mg/dL (60-99) Calcium Level 8.6mg/dL (8.5-10.1) Magnesium Level 2.2mg/dL (1.6-2.6) Total Bilirubin 0.5mg/dL (0.0-1.2) Aspartate Amino Transf (AST/SGOT) 18U/L (0-50) Alanine Aminotransferase (ALT/SGPT) 16U/L (0-32) Alkaline Phosphatase 133U/L (25-150) Total Protein 6.3g/dL (6.4-8.4) Albumin 3.1g/dL (3.4-5.0) Discharge Medications Discharge Medications Aspirin (Aspirin) 81 Mg Tablet 162 MG PO DAILY (Reported) Buprenorphine (Buprenorphine) 5 Mcg/Hour Patch.tdwk 1 PATCH TOPICAL WEEKLY ( Reported) Lisinopril (Lisinopril) 20 Mg Tablet 20 MG PO DAILY (Reported) Magnesium Chloride (Mag64) 64 Mg Tablet.er 64 MG PO BID Prescribed by: TOPETE A ISAURA, DO Nadolol (Corgard) 40 Mg Tab 40 MG PO BID Prescribed by: EFREM DELAROSA DO Simvastatin (Simvastatin) 20 Mg Tablet 20 MG PO DAILY (Reported) Warfarin Sodium (Warfarin Sodium) 6 Mg Tablet 6 MG PO every other day (Reported ) Warfarin Sodium (Warfarin Sodium) 7.5 Mg Tablet 7.5 MG PO every other day ( Reported) As needed Cephalexin (Cephalexin) 500 Mg Capsule 500 MG PO tid x 7 days PRN PRN illness ( Reported) Tramadol (Tramadol) 50 Mg Tablet 50-100 MG PO q8 hours PRN PRN For Pain ( Reported) oxyCODONE (oxyCODONE) 5 Mg Capsule 5-10 MG PO BID PRN PRN For Pain (Reported) Miscellaneous Medications ([unknown "chemo drug"]) Unknown Dose (Reported) Additional med instructions I am giving you a prescription for a magnesium tablet. Please take 64 mg of this medication by mouth 2 times a day until seen by cardiology. Please visit the website: [email or web address] before taking any new medications including supplements. Specifically he will be looking for any medications that will exacerbate your long QT syndrome. Please stay away from medications such as Suboxone as this will exacerbate your QT prolongation syndrome. Followup Plan Disposition: Discharge to home with home health Follow-up plan Follow-up with primary care provider within the next week, follow-up with cardiology in the next week or two. Discharge Diet: Heart Healthy Discharge Activity: Home Health Phyical Therapy Patient Instructions Patient is discharged home with home health includes physical therapy and occupational therapy. Follow-up Provider: Josemanuel Charles MD Follow-up with PCP in: 1 week Provider: Anastasiia Xiong MD Follow-up in: 2 weeks Time spent 60 minutes Attending Statement Patient has been seen and examined by myself with er medical technician and agree with above history, physical, assessment and plan. copies to: Josemanuel Charles MD; Anastasiia Xiong MD, GILES A DO Mar 22, 2017 11:20 Modesta Villalpando MD Mar 22, 2017 14:24
--- NOTE | 2017-03-22 11:48 | PCM.DIMED ---
Discharge Instructions Date of Service Mar 22, 2017 Dates of Hospitalization Mar 06, 2017 at 17:43 Discharge Diagnosis Discharge Diagnosis Cardiac arrest second to presumed torsades and long QT syndrome Acute hypoxic respiratory failure Aspiration pneumonia causing sepsis Chronic opioid dependence Muscular skeletal chest pain Acute encephalopathy Remote pulmonary embolism and portal vein thrombosis. Medication Instructions Additional med instructions I am giving you a prescription for a magnesium tablet. Please take 64 mg of this medication by mouth 2 times a day until seen by cardiology. Please visit the website [email or web address] before taking any new medications including supplements. Specifically he will be looking for any medications that will exacerbate your long QT syndrome. Please stay away from medications such as Suboxone as this will exacerbate your QT prolongation syndrome. Diet Discharge Diet: Heart Healthy Activity Discharge Activity: Home Health Phyical Therapy Call your provider Call your provider for: Fever or Chills, Shortness of breath, Bleeding, Chest pain, Vomitting, Excessive diarrhea, Weakness (unilateral) Patient Instructions Patient Instructions Patient is discharged home with home health includes physical therapy and occupational therapy. Follow-up plan Follow-up with her primary care provider in the next week, follow-up with cardiology in the next 1-2 weeks Follow-up Provider: Josemanuel Charles MD Follow-up with PCP in: 1 week Provider: Anastasiia Xiong MD Cardiac Rehab: 1 week Additional Information I would like patient to follow-up with home health, occupational therapy and physical therapy EFREM DELAROSA DO Mar 22, 2017 10:52
[2017-03-22 13:00] VITALS: BP 155/94; PULSE 61; RESP 24; O2SAT 90
[2017-03-22 13:09] LABS: Transferrin 168 mg/dL (.)
[2017-03-22] MEDS ORDERED: OXYC-474 PO (15:15)
[2017-03-22] MEDS ORDERED: TRAM50TA2 PO (15:16)
--- NOTE | 2017-03-22 15:28 | NUR ---
Social Work: Discharge/Multidisciplinary Rounds D: Pt discussed in multidisciplinary rounds; the patient is medically stable for discharge home with HH services for PT and OT. MD does not feel patient requires RN care. BARTENDER MANAGER met with the patient at bedside to inquire about where she will discharge. She states that on the weekends she will be at home in [place] and she will be at her parents in [place] during the week due to her husbands work schedule. HH CHOICE LIST and local options reviewed; she has no preference. Referral provided to [facility] as they service the [place] area. Pt expresses no other discharge needs or concerns at this time. F2F has been completed. HH orders placed. BARTENDER MANAGER acknowledges order. BARTENDER MANAGER provided referral to Angela Campbell with [facility]. BARTENDER MANAGER faxed F2F to her and she has access. The are aware pt will need to be seen on the weekdays down in [place]. A: Pt who will be homebound for a period of time while she regains functional mobility and recovers from cardiac procedures. P: Pt to discharge home today with [facility] for PT and OT. No further d/c needs MAVIS Beasley
--- NOTE | 2017-03-22 15:37 | NUR ---
Discharge pt ordered for discharge home with family and follow up with outpatient providers and cardiac rehab. pt aware and agreeable. discharge instructions reviewed with patient and female family member, both with verbal understanding. pt escorted out to front lobby via wheelchair with all belonging at about 1525.
== END 2017-03-22 15:28 | disposition home health service (06) | DRG 226 ==
LOC: SED 15:32 → CCU 17:43 → PCC 03-16 07:38
PROVIDERS: ADMIT Hospitalist; ATTEND Hospitalist
PROC: 5A1955Z Respiratory Ventilation, Greater than 96 Consecutive Hours (ICD-10-PCS; principal; 2017-03-06)
PROC: 4A033R1 Measurement of Arterial Saturation, Peripheral, Percutaneous Approach (ICD-10-PCS; 2017-03-06)
PROC: 6A4Z0ZZ Hypothermia, Single (ICD-10-PCS; 2017-03-06)
PROC: 03HY32Z Insertion of Monitoring Device into Upper Artery, Percutaneous Approach (ICD-10-PCS; 2017-03-06)
PROC: 02HV33Z Insertion of Infusion Device into Superior Vena Cava, Percutaneous Approach (ICD-10-PCS; 2017-03-06)
PROC: 0B998ZX Drainage of Lingula Bronchus, Via Natural or Artificial Opening Endoscopic, Diagnostic (ICD-10-PCS; 2017-03-14)
PROC: 0B958ZX Drainage of Right Middle Lobe Bronchus, Via Natural or Artificial Opening Endoscopic, Diagnostic (ICD-10-PCS; 2017-03-14)
PROC: 0JH608Z Insertion of Defibrillator Generator into Chest Subcutaneous Tissue and Fascia, Open Approach (ICD-10-PCS; 2017-03-20)
PROC: 02HK3KZ Insertion of Defibrillator Lead into Right Ventricle, Percutaneous Approach (ICD-10-PCS; 2017-03-20)
PROC: 02H63KZ Insertion of Defibrillator Lead into Right Atrium, Percutaneous Approach (ICD-10-PCS; 2017-03-20)
DX: I45.81 Long QT syndrome (principal); J69.0 Pneumonitis due to inhalation of food and vomit; G92 Toxic encephalopathy; J96.01 Acute respiratory failure with hypoxia; A41.9 Sepsis, unspecified organism; I46.2 Cardiac arrest due to underlying cardiac condition; E87.2 Acidosis; D68.61 Antiphospholipid syndrome; F11.20 Opioid dependence, uncomplicated; Z86.711 Personal history of pulmonary embolism; Z79.01 Long term (current) use of anticoagulants; I10 Essential (primary) hypertension; F17.200 Nicotine dependence, unspecified, uncomplicated; H35.00 Unspecified background retinopathy; G89.29 Other chronic pain; M54.9 Dorsalgia, unspecified; F10.10 Alcohol abuse, uncomplicated; I42.8 Other cardiomyopathies; D63.8 Anemia in other chronic diseases classified elsewhere; R07.89 Other chest pain